=== PATIENT | male | born 1965 | race Caucasian/White ===

== ENCOUNTER 2018-10-09 08:13 | Day surgery (SDC) | payer SELFPAY ==
--- NOTE | 2018-10-09 06:47 | ENDO_ITS ---
Date of service: 10/09/18 Time of Service: 08:55 Endoscopy Report DATE OF PROCEDURE: 10/09/18 PRE-OP DIAGNOSIS: Bloating and early satiety POST-OP DIAGNOSIS: other (Duodenitis, gastritis, esophagitis, hiatal hernia, Mix's) PROCEDURE: EGD with biopsies SURGEON: Heather Carreno ANESTHESIA: MAC (Gregorio Blakely, GLOBE CHANGER/ ASA 2) ESTIMATED BLOOD LOSS: 3 PATHOLOGY: other (duodenal bx, gastric bx, esophageal bx, hiatal hernia) COMPLICATIONS: None DISPOSITION: same day INDICATIONS: Mr. Mahmood is a pleasant 53 year old male who was seen in the office for bloating and early satiety. Risks, benefits and complications have been reviewed. Complications include but are not limited to bleeding, pain, perforation, sore throat, aspiration, and adverse reaction to the medications. Questions were entertained and answered to their satisfaction and they wished to proceed. No guarantees were given or implied. FINDINGS: Inflammation of the small bowel, stomach, esophagus, shallow gastric ulcers and a small hiatal hernia PROCEDURE DESCRIPTION: After informed consent was obtained the patient was take to the procedure room and placed in a supine position. Monitors were applied and a time out was done. The patients name, date of , procedure type, allergies to medications and metal in their body was reviewed. A bite block was placed and the patient was sedated. Once sedated and comfortable the gastroscope was advanced through the oropharynx which was grossly normal into the esophagus. The proximal and mid-esophagus were normal. In the distal esophagus there was inflammation and a very irregular Z-line noted. The scope was advanced into the stomach and through the pylorus into the 3rd portion of the duodenum. The duodenum was noted have mild inflammation in the 1st portion of the duodenum. Biopsies were done. The scope was retracted back into the stomach and biopsies were done to rule out H. pylori. There were 2 shallow ulcers noted. The scope was retro-flexed. The cardia and fundus were noted to be normal. There was a 5 cm hiatal hernia noted. The scope was retracted back into the esophagus and biopsies were done of the GE junction to rule out Mix's. The Z line was irregular. The GE junction was at 30 cm. The scope was removed and the patient was woken up and taken back to [facility] in stable c ondition. Follow up: 2-3 weeks in the office.
--- NOTE | 2018-10-09 06:49 | W.PM.DSUDISC ---
Discharge Plan Disposition Patient Disposition: HOME Condition: Good Discharge Details Reason For Visit: bloating and early satiety Attending Provider: Heather Carreno Primary Care Provider: Gregorio Akbar Home Meds and New Rx's Prescriptions: New sucralfate [Carafate] 1 gram tablet 1 gm PO QID Qty: 56 RF: 0 esomeprazole magnesium [Nexium] 40 mg capsule,delayed release(DR/EC) 40 mg PO QAM Qty: 60 RF: 0 ranitidine HCl 300 mg capsule 300 mg PO QHS Qty: 30 RF: 0 Discontinued esomeprazole magnesium [Nexium] 20 mg capsule,delayed release(DR/EC) 20 mg PO DAILY RF: 0 Discharge Instructions Instructions: Upper Endoscopy (DC), Diet for Stomach Ulcers and Gastritis (GEN), Duodenitis (DC), Gastritis (DC), Esophagitis (DC), Hiatal Hernia (DC) Additional Instructions: Findings: Inflammation of the small bowel, stomach, and esophagus small hiatal hernia Follow up: 3-4 weeks in the office Other: Please avoid alcohol and marijuana due to the inflammation Avoid any ibuprofen, aspirin, aleve, etc for pain Tylenol is OK Please call if you develop: fevers >101.5 Nausea or Vomiting Abdominal pain that is not transient DAY SURGERY UNIT POST COLONOSCOPY INSTRUCTIONS 1. Because there will be medication in your system for the next 24 hours, you may feel a little sleepy. Your coordination will be affected. Therefore: a. Do not drive or operate dangerous equipment for 24 hours. b. Do not drink alcohol beverages for 24 hours (not even beer). c. Plan to go home and rest for the day. 2. Generally there are no restrictions on your activity after a day or so has gone by, but you may feel a bit fatigued for a few days. 3 After you arrive home you may have a light meal and return to a normal diet as you can tolerate it without feeling sick to your stomach. 4. After surgery, you may feel pain or discomfort. This should be only transient, but if it persists please contact your doctor. 5. If there are any questions regarding the findings of your procedure, please feel free to contact your doctor. 6. If you are unable to contact your doctor with a problem, contact the hospital at [phone]. 7. Continue all your regular medications unless directed otherwise. I understand the above instructions and have no questions. Signature of Patient or Responsible Adult Escort Date/Time Name of Responsible Adult Escort Signature of Nurse Date/Time Referrals: Heather Carreno MD [ [facility] STAFF PHYSICIAN] - 11/06/18 1:15 pm Activity:: Activity as Tolerated Diet:: low acid Discharge Orders Discharge Orders: Discharge Order (Routine); Ordered 10/09/18 Ordered By: Heather Carreno DS: Diagnosis Discharge Diagnosis (1) H/O esophagogastroduodenoscopy: Status: Chronic (2) Gastritis and duodenitis: Status: Acute (3) Hiatal hernia: Status: Chronic (4) GERD (gastroesophageal reflux disease): Status: Chronic
[2018-10-09 08:30] VITALS: BP 135/93; PULSE 73; RESP 16; TEMP 36; O2SAT 98
[2018-10-09] MEDS: Lactated Ringers 1,000 ML 80 ML IV (08:38)
--- NOTE | 2018-10-09 08:58 | STOM_PTH ---
PATIENT: José Mahmood LOC: [facility] U#:[id number] AGE/SX: 53/M ROOM: RE10/09/[address]: Heather Carreno MD : [id number] BED: DIS: 10/09/2018 SPEC #: [id number] RECD: 10/09/18 13:01 STATUS: [facility] #: [id number] MIRTHA: 10/09/18 08:[address]: Heather Carreno DEPT: Surgical Specimen RECD BY: Jessica Crews ENTERED: 10/09/18 13:02 SP TYPE: STOMACH OTHR DR: Gregorio Akbar Tissues: 1 - BIOPSY BOWEL 2 - STOMACH BIOPSY 3 - ESOPHAGUS BIOPSY Procedures: GROSS AND MICRO LEVEL 4 Comments: [id number]
[2018-10-09 09:38] VITALS: PULSE 69; O2SAT 99
[2018-10-09 09:43] VITALS: BP 125/83; PULSE 68; RESP 16; TEMP 36.2; O2SAT 98
== END 2018-10-09 10:20 | disposition home or self-care (01) ==
PROVIDERS: PCP Family Medicine; Visit Provider Surgery
PROC: 0DJ68ZZ Inspection of Stomach, Via Natural or Artificial Opening Endoscopic (ICD-10-PCS; CPT 43235; principal; 2018-10-09 08:45)
DX: R14.0 Abdominal distension (gaseous) (principal); R68.81 Early satiety; K29.80 Duodenitis without bleeding; K29.60 Other gastritis without bleeding; K31.89 Other diseases of stomach and duodenum; K21.0 Gastro-esophageal reflux disease with esophagitis; K22.70 Barrett's esophagus without dysplasia
CPT/HCPCS: 43239; 88305

== ENCOUNTER 2018-11-29 09:29 | Outpatient (CLI) | payer SELFPAY ==
--- NOTE | 2018-11-29 09:23 | DI.RAD_ITS ---
SYMPTOM/DIAGNOSIS: PAIN, GIVING WAY RIGHT KNEE: No bony or joint abnormality is seen.
== END 2018-11-29 09:49 ==
PROVIDERS: PCP Family Medicine; Visit Provider Orthopaedic Surgery
DX: M25.561 Pain in right knee (principal); M25.361 Other instability, right knee
CPT/HCPCS: 73560

== ENCOUNTER 2018-12-28 09:36 | Emergency (ER) | payer SELFPAY ==
[2018-12-28 09:40] VITALS: BP 135/93; PULSE 79; RESP 20; TEMP 36.8; O2SAT 97
--- NOTE | 2018-12-28 09:43 | W.ED.GENAD ---
Discharge Plan Disposition Patient Disposition: HOME Condition: Stable Discharge Details Chief Complaint: EyeProblem Clinical Impression: Foreign body of cornea, right Primary Care Provider: Gregorio Akbar ED Provider: Jin Corona Home Meds and New Rx's Prescriptions: Continued esomeprazole magnesium [Nexium] 40 mg capsule,delayed release(DR/EC) 40 mg PO DAILY Qty: 30 RF: 5 Discharge Instructions Instructions: Eye Foreign Body (ED) Additional Instructions: Please go straight to [facility] for continued treatment of the foreign body in your right eye. Referrals: [facility] [Outside] (Presents straight to their office for further care) Discharge Data Discharge Date/Time-TO BE ENTERED AT DEPARTURE: 12/28/18 10:50 Medical Decision Making Patient presents the emergency department for chief complaint of right eye pain. Patient states couple days ago he felt that he may have got something in his eye. This morning when he woke up he noted significant crusting to his eyelid and discomfort. Patient does state he may have also got a piece of metal or rust in his left eye but feels that he was able to appropriately flush that out that has been improving. Physical exam shows a corneal foreign body that appears metallic with rust ring present to the right cornea and approximately the 3 o'clock position. Otherwise dye and slit-lamp along with Barajas lamp was utilized and no other deformity or corneal abrasion was noted. Attempted to remove foreign body with moistened Q-tip but was unable to remove this. Patient even with analgesia seemed very sensitive so given rust ring that I feel will need treatment by specialist I decided not to use a needle to attempt to dislodge foreign body. spoke with Dr. Hurtado at [facility] whom stated that patient could present immediately to their office for further care of his condition. Patient was in agreement with this plan of care. HPI General Mode of arrival: ambulatory. Date/Time Provider Initiated Documentation: 12/28/18 09:41. Limitations to Documentation: no limitations. Information obtained by: patient. History of Present Illness 53 year old M presents to the emergency department with the chief complaint of Foreign body right eye, described as moderate and similar to prior episodes, with intensity rated at 8. Quality is described as aching and sharp, and is localized to the eyes and right. Patient started experiencing this day(s) (2) and it has been constant. Patient notes no other symptoms.. Related Data Home Medications Medication Instructions Recorded Confirmed esomeprazole magnesium 40 mg 40 mg PO DAILY #30 cap 11/19/18 12/28/18 capsule,delayed release Previous Rx's Medication Instructions Recorded esomeprazole magnesium 40 mg 40 mg PO DAILY #30 cap 11/19/18 capsule,delayed release Allergies Allergy/AdvReac Type Severity Reaction Status Date / Time No Known Allergies Allergy Verified 12/28/18 09:42 General Stated Complaint: EyeProblem JS: 3 Review of Systems Constitutional Denies body ache(s), Denies chills, Denies fever(s) and Denies headache(s) Eyes Reports as per HPI, Reports eye discharge, Reports irritation, Denies loss of vision and Reports eye pain ENT Denies headache(s) Cardiovascular Denies syncope Gastrointestinal Denies nausea Integumentary/Breasts Denies rash Neurologic Denies syncope, Denies headache(s), Denies loss of vision and Denies other visual disturbances PFSH Medical History GERD (gastroesophageal reflux disease) (Chronic) Hiatal hernia (Chronic) Gastritis and duodenitis (Acute) Barretts esophagus Myalgia Neck pain Wrist pain, chronic Surgical History H/O esophagogastroduodenoscopy (Chronic ~10/09/18) Colonoscopy - IV Sedation (~2010) Endoscopy (~2013) Family History Father Heart disease Mother Diabetes Social History Smoking/Tobacco Use Status: Never Alcohol Intake: current Alcohol Intake frequency: a few times a month Alcohol type: beer Drug use: Daily Substance use type: marijuana Do you feel safe at home: Yes Do you feel safe in your relationship?: Yes Exam Const General: cooperative, no acute distress and not ill appearing Orientation: alert, awake and oriented x3 Eyes Visual Carlson: normal visual carlson by confrontation Alignment and Position: alignment normal Periorbital: periorbital findings normal Eyelids: eyelids normal Conjunctivae: conjunctivae normal Sclera: sclerae normal Cornea: corneas abnormal on the right fluorescein used and foreign body (3 o'clock) metallic and with rust ring present and fluorescein used Pupils: PERRL, normal by confrontation and accommodation normal EOM: EOM intact bilaterally Resp Effort & Inspection: normal respiratory effort, able to speak in complete sentences and no respiratory distress Skin General skin exam: no rashes or lesions noted Neuro General: alert, awake and oriented x3 Course Vital Signs Temperature 36.8 C 12/28/18 09:40 Pulse 79 12/28/18 09:40 Respiratory Rate 20 12/28/18 09:40 Blood Pressure 135/93 H 12/28/18 09:40 Pulse Oximetry 97 12/28/18 09:40 Temperature 36.8 C 12/28/18 09:40 Temperature Source Temporal Artery Scan 12/28/18 09:40 Pulse 79 12/28/18 09:40 Respiratory Rate 20 12/28/18 09:40 Respiratory Effort Non-Labored 12/28/18 09:40 Blood Pressure 135/93 H 12/28/18 09:40 Pulse Oximetry 97 12/28/18 09:40 Oxygen Delivery Method Room Air 12/28/18 09:40 Oxygen Flow Rate 0 12/28/18 09:40 Pain Level 8 12/28/18 09:40
--- NOTE | 2018-12-28 09:46 | ED.GENADUL_ITS ---
Discharge Plan Disposition Patient Disposition: HOME Condition: Stable Discharge Details Chief Complaint: EyeProblem Clinical Impression: Foreign body of cornea, right Primary Care Provider: Gregorio Abkar ED Provider: Jin Corona Home Meds and New Rx's Prescriptions: Continued esomeprazole magnesium [Nexium] 40 mg capsule,delayed release(DR/EC) 40 mg PO DAILY Qty: 30 RF: 5 Discharge Instructions Instructions: Eye Foreign Body (ED) Additional Instructions: Please go straight to [facility] for continued treatment of the foreign body in your right eye. Referrals: [facility] [Outside] (Presents straight to their office for further care) Discharge Data Discharge Date/Time-TO BE ENTERED AT DEPARTURE: 12/28/18 10:50 Medical Decision Making Patient presents the emergency department for chief complaint of right eye pain. Patient states couple days ago he felt that he may have got something in his eye. This morning when he woke up he noted significant crusting to his eyelid and discomfort. Patient does state he may have also got a piece of metal or r ust in his left eye but feels that he was able to appropriately flush that out that has been improving. Physical exam shows a corneal foreign body that appears metallic with rust ring present to the right cornea and approximately the 3 o'clock position. Otherwise dye and slit-lamp along with Barajas lamp was utilized and no other deformity or corneal abrasion was noted. Attempted to remove foreign body with moistened Q-tip but was unable to remove this. Patient even with analgesia seemed very sensitive so given rust ring that I feel will need treatment by specialist I decided not to use a needle to attempt to dislodge foreign body. spoke with Dr. Hurtado at [facility] whom stated that patient could present immediately to their office for further care of his condition. Patient was in agreement with this plan of care. HPI General Mode of arrival: ambulatory . Date/Time Provider Initiated Documentation: 12/28/18 09:41 . Limitations to Documentation: no limitations . Information obtained by: patient . History of Present Illness 53 year old M presents to the emergency department with the chief complaint of Foreign body right eye, described as moderate and similar to prior episodes, with intensity rated at 8. Quality is described as aching and sharp, and is localized to the eyes and right. Patient started experiencing this day(s) (2) and it has been constant. Patient notes no other symptoms.. Related Data Home Medications Medication Instructions Recorded Confirmed esomeprazole magnesium 40 mg 40 mg PO DAILY #30 cap 11/19/18 12/28/18 capsule,delayed release Previous Rx's Medication Instructions Recorded esomeprazole magnesium 40 mg 40 mg PO DAILY #30 cap 11/19/18 capsule,delayed release Allergies Allergy/AdvReac Type Severity Reaction Status Date / Time No Known Allergies Allergy Verified 12/28/18 09:42 General Stated Complaint: EyeProblem JS: 3 Review of Systems Constitutional Denies body ache(s), Denies chills, Denies fever(s) and Denies headache(s) Eyes Reports as per HPI, Reports eye discharge, Reports irritation, Denies loss of vision and Reports eye pain ENT Denies headache(s) Cardiovascular Denies syncope Gastrointestinal Denies nausea Integumentary/Breasts Denies rash Neurologic Denies syncope, Denies headache(s), Denies loss of vision and Denies other visual disturbances PFSH Medical History GERD (gastroesophageal reflux disease) (Chronic) Hiatal hernia (Chronic) Gastritis and duodenitis (Acute) Barretts esophagus Myalgia Neck pain Wrist pain, chronic Surgical History H/O esophagogastroduodenoscopy (Chronic ~10/09/18) Colonoscopy - IV Sedation (~2010) Endoscopy (~2013) Family History Father Heart disease Mother Diabetes Social History Smoking/Tobacco Use Status: Never Alcohol Intake: current Alcohol Intake frequency: a few times a month Alcohol type: beer Drug use: Daily Substance use type: marijuana Do you feel safe at home: Yes Do you feel safe in your relationship?: Yes Exam Const General: cooperative, no acute distress and not ill appearing Orientation: alert, awake and oriented x3 Eyes Visual Carlson: normal visual carlson by confrontation Alignment and Position: alignment normal Periorbital: periorbital findings normal Eyelids: eyelids normal Conjunctivae: conjunctivae normal Sclera: sclerae normal Cornea: corneas abnormal on the right fluorescein used and foreign body (3 o'clock) metallic and with rust ring present and fluorescein used Pupils: PERRL, normal by confrontation and accommodation normal EOM: EOM intact bilaterally Resp Effort & Inspection: normal respiratory effort, able to speak in complete sentences and no respiratory distress Skin General skin exam: no rashes or lesions noted Neuro General: alert, awake and oriented x3 Course Vital Signs Temperature 36.8 C 12/28/18 09:40 Pulse 79 12/28/18 09:40 Respiratory Rate 20 12/28/18 09:40 Blood Pressure 135/93 H 12/28/18 09:40 Pulse Oximetry 97 12/28/18 09:40 Temperature 36.8 C 12/28/18 09:40 Temperature Source Temporal Artery Scan 12/28/18 09:40 Pulse 79 12/28/18 09:40 Respiratory Rate 20 12/28/18 09:40 Respiratory Effort Non-Labored 12/28/18 09:40 Blood Pressure 135/93 H 12/28/18 09:40 Pulse Oximetry 97 12/28/18 09:40 Oxygen Delivery Method Room Air 12/28/18 09:40 Oxygen Flow Rate 0 12/28/18 09:40 Pain Level 8 12/28/18 09:40
== END 2018-12-28 10:50 | disposition home or self-care (01) ==
PROVIDERS: Emergency Provider Nurse Practitioner Family; PCP Family Medicine
DX: T15.01XA Foreign body in cornea, right eye, initial encounter (principal)
CPT/HCPCS: 99283

== ENCOUNTER 2019-01-01 01:04 | Outpatient (CLI) | payer SELFPAY ==
--- NOTE | 2019-01-01 08:45 | DI.MRI_ITS ---
SYMPTOM/DIAGNOSIS: INTERNAL DERANGEMENT, PAIN, KNEE GIVES OUT RIGHT KNEE MRI: Routine noncontrast examination was performed. There are no priors for comparison. There is a tear of the anterior cruciate ligament. The posterior cruciate ligament is intact as are the medial and lateral collateral ligaments, extensor mechanism, medial and lateral retinaculum and popliteus tendon. There is abnormal signal seen in the body and posterior horn of the medial meniscus suggestive of a tear. There is a fluid collection adjacent to the medial meniscus measuring 3.1 cm. craniocaudally by 1 cm. AP suggestive of a perimeniscal cyst. There is a small amount of fluid in the joint space. The articular cartilage is well maintained. Marrow signal is within normal limits without evidence of an occult fracture or avascular necrosis. There does appear to be a tiny popliteal cyst. IMPRESSION: 1. ACL tear. 2. Tear of the body and posterior horn of the medial meniscus with an associated perimeniscal cyst.
== END 2019-01-01 01:24 ==
PROVIDERS: PCP Family Medicine; Visit Provider Orthopaedic Surgery
DX: M25.561 Pain in right knee (principal); M23.91 Unspecified internal derangement of right knee; S83.511A Sprain of anterior cruciate ligament of right knee, initial encounter; S83.241A Other tear of medial meniscus, current injury, right knee, initial encounter
CPT/HCPCS: 73721

== ENCOUNTER 2019-02-12 08:31 | Outpatient (CLI) | payer SELFPAY ==
--- NOTE | 2019-02-12 08:03 | W.PREOPHP ---
Assessment and Plan (1) Tear of medial meniscus of right knee: Current visit: Yes Status: Chronic Plan: Educated patient on surgery covering surgical technique, recovery process, benefits and risks including but not limited to risk of infection, blood clot, damage to soft tissue/blood vessels/nerves in detail. Educated patient partial medial meniscectomy is not guaranteed to improve patient's instability and he may continue to have instability due to his chronic ACL tear. Reiterated that Dr. Mack will consider ACL reconstruction if warranted based on patient's symptoms following partial medial meniscectomy. After discussion patient gives verbal understanding of risks and elects to proceed with scheduling surgery. Patient had opportunity to have questions answered to their satisfaction. They will contact office if issues arise. Patient will continue to be scheduled for right knee arthroscopy with partial medial meniscectomy with Dr. Mack. History of Present Illness Narrative: Mr. Mahmood is a 53-year-old male presents clinic with his for preoperative visit for scheduled right knee arthroscopy with partial medial meniscectomy with Dr. Mack. Patient reports approximately 3 years ago he was removing of bed from a trailer, he pushed the bed into a upright position over his head when his right knee suddenly gave way causing the right knee to flex underneath him. Patient immediately fell to the ground and had severe knee pain. Although he did not seek orthopedic medical attention until November 2018 he reports chronic knee instability that causes frequent falls. In addition to instability patient also has severe pain with giving out motions and is unable to do any twisting motions due to severe pain and instability. Patient has tried ibuprofen as needed which provides some pain relief. In addition he is also tried to use a soft knee brace without improvement. Patient did borrow his friend's ACL brace which helps to provide some stability. When patient continued to have symptoms for greater than 3 years following injury he sought orthopedic consult. Due to patient's history and physical exam Dr. Mack ordered an MRI which as per his note on 01/08/2019 states chronic tear of the ACL; PCL is intact; tear of posterior horn of medial meniscus and questionable Linn's cyst. Although patient has ACL tear Dr. Mack recommended knee arthroscopy with partial medial meniscectomy prior to considering ACL reconstruction due to patient's age. Patient was agreeable to surgical plan and wished to proceed with knee arthroscopy. Pertinent Surgical Information Denies past medical history of: Hypertension, stroke, cardiac issues, angina, asthma, COPD, sleep apnea, renal issues, liver issues, hepatitis, gastrointestinal ulcers, hyperlipidemia, bleeding disorders, seizures, migraines, anxiety, depression, diabetes, autoimmune disorders, thyroid issues Denies prior complications from surgery or anesthesia. Review of Systems Constitutional Denies fever(s) and Denies headache(s) Eyes Denies change in vision ENT Denies dizziness, Denies ear discharge, Denies headache(s), Denies epistaxis, Denies nasal discharge and Denies sore throat Cardiovascular Denies chest pain, Denies rapid heart rate, Denies irregular heart rhythm, Denies dyspnea, Denies dyspnea on exertion, Denies orthopnea, Denies paroxysmal nocturnal dyspnea and Denies slow heart rate Respiratory Reports cough (morning cough at baseline; denies any recent change in cough), Denies dyspnea, Denies dyspnea on exertion and Denies wheezing Gastrointestinal Denies abdominal pain, Denies melena, Denies hematochezia, Denies constipation, Denies diarrhea, Denies nausea and Denies vomiting Genitourinary Denies hematuria, Denies dysuria and Denies urinary urgency Musculoskeletal Reports as per HPI, Denies numbness and Denies tingling Neurologic Denies dizziness, Denies headache(s), Denies numbness and Denies tingling Psychiatric Denies anxiety and Denies depression Allergic/Immunologic Denies wheezing PFSH Medical History Tear of medial meniscus of right knee (Chronic) Wrist pain, chronic Neck pain GERD (gastroesophageal reflux disease) (Chronic) Hiatal hernia (Chronic) Gastritis and duodenitis (Acute) Mix esophagus (Chronic) Marijuana use (Chronic) Myalgia Surgical History History of left knee surgery (Acute) Colonoscopy - IV Sedation (~2010) H/O esophagogastroduodenoscopy (Chronic ~10/09/18) H/O surgical procedure (Chronic) Endoscopy (~2013) Social History Smoking/Tobacco Use Status: Former Tobacco Use Alcohol Intake: current Alcohol Intake frequency: a few times a week Alcohol type: beer Drug use: Daily Substance use type: marijuana Do you feel safe at home: Yes Do you feel safe in your relationship?: Yes Meds Home Medications Medication Instructions Recorded Confirmed Type esomeprazole magnesium 40 mg 40 mg PO DAILY #90 cap 01/28/19 02/12/19 Rx capsule,delayed release Allergies Allergy/AdvReac Type Severity Reaction Status Date / Time No Known Allergies Allergy Verified 02/12/19 08:34 Exam Const General: cooperative and no acute distress [facility] Head: normal to inspection, normocephalic and atraumatic Ears: external ears normal General nose exam: external nose normal and no nasal discharge Face and sinus: face symmetric Mouth: oral mucosae normal, lip normal, tongue normal and moist mucous membranes Teeth and gingiva: dentition normal Throat: posterior oropharynx normal Eyes General: appearance normal, both eyes and all related structures Pupils: PERRL EOM: EOM intact bilaterally Neck Neck: trachea midline Carotids: normal carotid upstroke Lymphatic: no lymphadenopathy noted Resp Effort & Inspection: normal respiratory effort and able to speak in complete sentences Auscultation: clear to auscultation bilaterally, no rales, no rhonchi and no wheezes Cardio Heart Sounds: S1 normal, S2 normal, no murmurs, no rubs and no other Pulses: radial pulses present bilaterally GI Palpation: soft, no hepatosplenomegaly and nontender Auscultation: normal bowel sounds Skin General skin exam: no rashes or lesions noted
== END 2019-02-12 08:51 ==
PROVIDERS: PCP Family Medicine; Visit Provider Orthopaedic Surgery
DX: S83.241A Other tear of medial meniscus, current injury, right knee, initial encounter (principal); Z01.818 Encounter for other preprocedural examination
CPT/HCPCS: NC

== ENCOUNTER 2019-02-18 06:01 | Day surgery (SDC) | payer SELFPAY ==
[2019-02-18] VITALS (8 sets, daily range): BP systolic 103–133; BP diastolic 65–99; PULSE 64–77; RESP 16–21; TEMP 36.3–37.1; O2SAT 94–99
[2019-02-18] MEDS: Lactated Ringers 1,000 ML 80 ML IV (06:34)
[2019-02-18] MEDS: ceFAZolin 2 GM/50 ML BAG IVPB (07:34)
--- NOTE | 2019-02-18 08:37 | PDOC.DSDIS_ITS ---
Discharge Plan Disposition Patient Disposition: HOME Condition: Good Discharge Details Reason For Visit: Arthroscopy R knee Attending Provider: Macho Mack Primary Care Provider: Gregorio Akbar Home Meds and New Rx's Prescriptions: New ibuprofen 800 mg tablet 800 mg PO TID Qty: 30 RF: 0 hydrocodone-acetaminophen 5-325 mg tablet 1 tab PO Q6H PRN (Reason: pain) Qty: 10 RF: 0 Continued esomeprazole magnesium [Nexium] 40 mg capsule,delayed release(DR/EC) 40 mg PO DAILY Qty: 90 RF: 3 acetaminophen 500 mg Tablet 1,000 mg PO Q6H PRNRF: 0 multivitamin Tablet,Chewable 1 tab PO DAILY RF: 0 Discharge Instructions Additional Instructions: Elevate R leg on 1-2 pillows as much as possible over next 48 hours. Apply cryocuff continuously over nite tonite. Tomorrow, start to use 4 times/day for 1 hour each time to decrease swelling and pain. Crutches to walk. Put as much weight on R leg as your discomfort allows. Discontinue crutches when you can step fully on R leg with minimal pain. May remove dressings, shower, and get incisions wet after 48 hours. Leave incisions uncovered when they are dry and sealed. Take ibuprofen as prescribed, 3 times/day for 10 days to decrease swelling and inflammation. Take hydrocodone, if needed, for breakthru pain. Outpatient physical therapy on Mon or to begin rehab R knee following arthroscopic partial medial meniscectomy. Follow up with in 2 weeks. Referrals: Macho Mack MD [ [facility] STAFF PHYSICIAN] - (f/u in 2 weeks.) Equipment/Supplies: Partial Weight Bearing Crutches Activity:: Activity as Tolerated Remove Dressings/Wound Care:: 48 hours Shower/Bathe:: 48 hours Diet:: As Tolerated Discharge Orders Discharge Orders: Discharge Order (Routine); Ordered 02/18/19 Ordered By: Macho Mack DS: Diagnosis Discharge Diagnosis (1) Tear of medial meniscus of right knee: Status: Chronic
[2019-02-18] MEDS: diphenhydrAMINE 50 MG/ML VIAL 25 MG IVP (09:40)
[2019-02-18] MEDS: HYDROcodone 5/Acetaminophen 325 TAB PO (10:56)
--- NOTE | 2019-02-18 14:36 | ROE_ITS ---
DATE OF PROCEDURE: February 18, 2019 PREOPERATIVE DIAGNOSIS: Torn right ACL, torn right medial meniscus. POSTOPERATIVE DIAGNOSIS: Same. PROCEDURE: Arthroscopy of the right knee with partial right medial meniscectomy. ANESTHESIA: General. SURGEON: Macho Mack M.D. INDICATIONS: This is a 53-year-old white male who injured his right knee removing a bed from a trail er approximately three years prior to this admission. He has been bothered by chronic knee instabili ty and frequent falls over the years. This appeared to be getting worse, until finally he sought [facility] attention in November of 2018. He was functioning using a friend's ACL brace. The symptoms occ ur mostly on uneven ground and not so much on level ground. Physical examination showed ACL laxity, consistent with an ACL tear. MRI scan confirmed a chronic tear of the ACL, but it also showed a tear of the posterior horn of the medial meniscus. Because of his age and activity level, I felt that hi s disability was probably related to his meniscus rather than his torn ACL. I recommended that he un dergo an arthroscopic medial meniscectomy and full evaluation of his knee. I think he should see wha t kind of instability he has after the meniscus has been resected. I think he should be able to get around pretty well with just an ACL brace, or nothing. If he is unable to do so, only then would I recommend an ACL reconstruction. The patient is in agreement with the treatment plan. The risks and complications of the procedure have been explained to the patient in detail preoperatively. PROCEDURE: The patient was taken to the Operating Room on 02/18/19. He was placed supine on the oper ating table and a general anesthetic was administered. The right thigh was placed in the arthroscopi c leg acevedo and the right knee was prepped and draped free in the usual sterile fashion. Arthroscop ic portals were established. The right knee was inflated with normal saline solution and routine art hroscopic examination proceeded. Intraoperative photographs were obtained to document the findings. Upon entering the medial compartment, he was found to have a large, essentially bucket handle tear of the posterior horn of the medial meniscus. The posterior attachment on the bucket handle however wa s not present, it was only attached anteriorly. I then amputated through the anterior attachment of the bucket handle tear with a biting forceps. The free meniscal fragment was then secured with grasp ing forceps and removed from the knee. The remaining rim of medial meniscus was then smoothed, conto ured and debrided back to a stable rim with the 90-degree ArthroCare electrocautery device. The liza ining rim of the medial meniscus was probed under direct vision and was found to be fully stable. Th e articular cartilage in the medial compartment was undamaged. The intercondylar notched showed an absent anterior cruciate ligament with just one strand of ligamen t that was still attached to the femur. This small fiber probably measured only about 2 mm and it wa s vaporized with the high radio frequency electrocautery wand. The PCL appeared intact. The lateral compartment had a normal lateral meniscus, stable to probing under direct vision. The ar ticular cartilage in the lateral compartment was pristine and undamaged. The suprapatellar pouch was clear. The patellofemoral joint was normal with no damage to the articul ar cartilage in the patellofemoral joint. The patella appeared to be tracking well. Medial and late ral gutters were clear. The knee was copiously irrigated with saline solution using the arthroscopy pump until the outflow wa s clear. 20 cc's of 0.5% Marcaine with an epinephrine solution along with 4 mg of morphine were inst illed into the right knee and then all instruments were removed from the knee. The arthroscopy leslie ls were infiltrated with 0.5% Marcaine with an epinephrine solution and were approximated with interr upted #4-0 Nylon sutures. Sterile dressings were applied, followed by sterile gauze 4x4's, ABD pads and wrapped with 6-inch BETZAIDA bandages for a light pressure dressing. The patient's anesthesia was rev ersed without complication. Blood loss was minimal. He was discharged to recovery room in good cond ition. The patient was later discharged home from the Day Surgery Unit when fully recovered from his general anesthesia. He was given instructions to elevate his right leg on 1 to 2 pillows as much as possibl e for the next 48 hours. He is to apply a Cryo-Cuff continuously overnight tonight. Tomorrow he'll use the Cryo-Cuff four times a day for an hour each time. He is to use crutches to walk, weightbeari ng as tolerated to the right leg. He may discontinue the crutches as soon as he can step fully on hi s right leg with minimal pain. He is to keep his dressings dry and intact for 48 hours. After 48 ho urs he can remove his dressings, shower and get his incisions wet. He can leave the incisions uncove red when they are dry and sealed. He is given a prescription for ibuprofen 800 mg p.o. t.i.d. for te n days for inflammation and pain. He will take Hydrocodone with APAP 5/325, one tablet every six pili rs, if needed, for breakthrough pain. He should start physical therapy to rehab his right knee on or . He should follow-up with me in two weeks.
== END 2019-02-18 11:50 | disposition home or self-care (01) ==
PROVIDERS: PCP Family Medicine; Visit Provider Orthopaedic Surgery
PROC: (CPT 29870; principal; 2019-02-18 07:30)
DX: M23.221 Derangement of posterior horn of medial meniscus due to old tear or injury, right knee (principal); M23.8X1 Other internal derangements of right knee; M23.51 Chronic instability of knee, right knee; R29.6 Repeated falls
CPT/HCPCS: 29881; E0114; J0690; J1100; J1885; J2405

== ENCOUNTER 2022-11-09 06:53 | Day surgery (SDC) | payer OTHER, SELFPAY ==
[2022-11-09 07:00] VITALS: BP 133/101; PULSE 67; RESP 18; TEMP 36.4; O2SAT 96
[2022-11-09] MEDS: Lactated Ringers 1,000 ML 80 ML IV (07:23)
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
[2022-11-09 07:34] VITALS: BMI 30.7
--- NOTE | 2022-11-09 08:49 | STOM_PTH ---
PATIENT: José Mahmood LOC: [facility] U#:[id number] AGE/SX: 57/M ROOM: RE11/09/[address]: Ponce Roque : 1965 BED: DIS: 11/09/2022 SPEC #: [id number] RECD: 11/09/22 12:51 STATUS: ALLISON RE #: [id number] MIRTHA: 11/09/22 08:[address]: Ponce Roque DEPT: Surgical Specimen RECD BY: Jessica Crews ENTERED: 11/09/22 12:54 SP TYPE: STOMACH OTHR DR: Jerardo Hicks Tissues: 1 - STOMACH BIOPSY 2 - ESOPHAGUS BIOPSY 3 - ESOPHAGUS BIOPSY 4 - BIOPSY BOWEL 5 - BIOPSY BOWEL Procedures: GROSS AND MICRO LEVEL 4 Comments: [id number]
[2022-11-09 09:22] VITALS: BP 152/118; PULSE 69; RESP 16; TEMP 36; O2SAT 96
--- NOTE | 2022-11-09 09:47 | W.ANESPOSTOP ---
Postoperative Evaluation Date, Time and Location Date Performed: 11/09/22 Time Performed: 11:20 Patient Location: Day Surgery Unit Vital Signs Most Recent Imported Vital Signs: Most Recent Vital Signs Temp Pulse Resp BP Pulse Ox 36 C L 69 16 152/118 H 96 11/09/22 09:22 11/09/22 09:22 11/09/22 09:22 11/09/22 09:22 11/09/22 09:22 Pain Score Most Recent Pain Score: Most Recent Pain Score Pain Level 7 11/09/22 09:22 Assessment Mental Status: Awake (Alert & Oriented to Patient Baseline) Airway and Respiratory Function: Patent airway with normal (patient baseline) respiratory exam Cardiovascular Function: Hemodynamically Stable Hydration Status: Adequately Hydrated Nausea & Vomiting: Active Nausea or Vomiting Present (zofran ordered) Nausea and Vomiting Management: Nausea and vomiting active, being addressed with medication Pain: Pt. Denies Any Pain Peripheral Nerve Block: Patient did not receive a nerve block Postoperative Comments:: still retching but passing gas.has had various anti emetics dr. montenegro aware and has seen him .will report to [facility] who will check on him.
[2022-11-09] MEDS: Ondansetron 4 MG/2 ML VIAL IVP (09:52)
[2022-11-09 09:54] VITALS: BP 158/107; PULSE 66; RESP 18; TEMP 36.5; O2SAT 99
--- NOTE | 2022-11-09 10:14 | COLE_ITS ---
Date of service: 11/09/22 Time of Service: 09:00 Colonoscopy Report Procedure Description: Procedures performed: 1. Colonoscopy with snare polypectomy x2 2. Colonoscopic ablation/fulguration/destruction of colon polyp Preoperative diagnosis: Surveillance colonoscopy, rectal bleeding Postoperative diagnosis: Colon polyps, grade 2 internal hemorrhoids Surgeon: Ron Roque Anesthesia: Cordell Indication for procedure: Patient is a 57-year-old man who has been having on /off rectal bleeding for the last few years. He does have a history of bulging hemorrhoids. Patient reports no significant findings on prior colonoscopies. He does not have a family history of colon cancer. Findings: A 3 to 5 mm sessile polyp was removed from the transverse colon with hot snare technique. Another 2-3 mm sessile polyp was fulgurated/ablated with the tip of the hot snare in the transverse colon. No significant diverticular disease was seen. In the proximal rectum a 10-12 mm sessile polyp was seen and removed with hot snare technique. Retroflexion demonstrated significant grade 2 internal hemorrhoids. Surveillance/follow-up recommendations: Repeat colonoscopy in 3 years considering size/appearance of the polyps. Complications: None Blood loss: Minimal Specimens:?? YES Quality of Prep:?? Good Procedure in detail: Written consent was obtained from the patient who was in agreement with the risks, benefits and indications of the procedure.? He was turned from upper endoscopy (see separate procedure note) and kept in the same position and anesthesia was continued. I started the colonoscopy portion of the exam. Digital rectal exam and visual examination was performed. Normal tone and no obvious pathologic processes uncovered. A well?lubricated colonoscope was advanced without difficulty all the way to the cecum identified by the ileocecal valve, and triangular folds and appendiceal orifice.? It was then slowly withdrawn.?? Retroflexion was performed in the rectum.? The findings/interventions are noted above. The scope was then removed and the patient tolerated the procedure well and was then kept in the same position and anoscopy/internal hemorrhoid banding was performed (see separate procedure note for details).
--- NOTE | 2022-11-09 10:14 | W.PM.OP ---
Date of service: 11/09/22 Time of Service: 10:15 Operative Note Operative Note Refer to Anesthesia Record Procedure Description: Procedures performed: 1.? Anoscopy 2.? Internal Hemorrhoid banding x3 Preoperative diagnosis: Symptomatic grade 2 internal hemorrhoids Postoperative diagnosis: Same Surgeon: Ron Roque Anesthesia: Landa Indication for procedure: 57-year-old man has been having some rectal bleeding. Presumable cause hemorrhoids and he wants them banded if they are found during his surveillance colonoscopy. Findings: All 3 columns double?banded Surveillance/follow-up recommendations: No follow-up needed.? The durability of hemorrhoidal interventions varies greatly and sometimes is only a few years before other hemorrhoids develop/recur. Complications: None Blood loss: Minimal Specimens:? No Procedure in detail: Written consent was obtained from the patient who was in agreement with the risks, benefits and indications of the procedure.? He was kept in the same position after the colonoscopy was done (see separate procedure note) and a well?lubricated anoscope was introduced in the anal canal carefully evaluated for other pathology such as fistulas and/or fissures.? None were seen. Grade 2 internal hemorrhoids were visualized at all 3 columns.? Rubber band ligation was performed in all 3 columns, just above the dentate line, with 2 rubber bands placed at each location.? The patient tolerated this procedure well. The scope was then removed and the PACU in stable condition and was not having perianal pain at that time.
--- NOTE | 2022-11-09 10:16 | W.PM.ENDDOP ---
Date of service: 11/09/22 Time of Service: 09:00 Endoscopy Report PROCEDURE DESCRIPTION: Procedures performed: 1.? Esophagogastroduodenoscopy with cold forceps biopsies Preoperative diagnosis: Hiatal hernia, Mix's esophagus Postoperative diagnosis: Mild antral gastritis/gastropathy, moderate?size (3-4 cm) type III paraesophageal hernia, Mix's esophagus Surgeon: Ron Roque Anesthesia: Landa Indication for procedure: Findings: - D3, D2 and D1 - normal - no inflammation or ulcers - Pylorus - patent.? No bile reflux visualized during procedure. - Antrum - looks mildly inflamed and with chronic appeance - biopsies taken to rule out occult H. pylori - Stomach Body - grossly normal appearance. - Fundus -? Normal.? No polyps. - Hiatus - Retroflexion shows moderate?size, type III paraesophageal hernia (3-4 cm slide with one side sliding up/past the esophagus - Esophagus - distal esophagus does not look actively inflamed despite hernia.? There was however two distinct ~2-3 cm strips of Mix's esophagus. These were biopsied with cold forceps technique in various locations to rule out any dysplasia. Mid and proximal esophagus normal in appearance. Cold forceps biopsies were taken in the midesophagus to assess for possible reflux as high. - Cords/hypopharynx - Normal OVERALL - Stable Mix's esophagus with no unusual visible appearance. Biopsies taken. [place] to be secondary to the type III paraesophageal hernia he has. Surveillance/follow-up recommendations: I recommend surveillance of Mix's esophagus every 3-5 years in the absence of surgical repair. Elective surgical repair can be considered and the patient should follow-up if he desires to understand more about this option. Mix's esophagus in the setting of a type III paraesophageal hernia can be treated/fixed with minimally invasive (MIS) paraesophageal hernia repair and antireflux surgery. This may be preferable for younger patients who do not want to be on chronic PPI therapy. Complications: None Blood loss: Minimal Specimens:? YES Procedure in detail: Written consent was obtained from the patient who was in agreement with the risks, benefits and indications of the procedure.? We went to the endoscopy suite and laid the patient in left lateral decubitus position.? Anesthesia was administered which was tolerated well.? A timeout was performed and when we are all in agreement we began the procedure. A well?lubricated endoscope was advanced without difficulty down the esophagus, into the stomach, through a patent pylorus and into the duodenum.? It was then slowly pulled back with findings noted above. The scope was then removed and the patient tolerated the procedure well and was then turned for the colonoscopy portion of the procedure (see separate procedure note)
[2022-11-09 10:22] VITALS: BP 145/98; PULSE 69; RESP 16; TEMP 36.4; O2SAT 93
[2022-11-09] MEDS: Droperidol 5 MG/2 ML VIAL 0.625 MG IVP (11:17)
[2022-11-09 11:19] VITALS: BP 162/115; PULSE 75; RESP 16; TEMP 36.4; O2SAT 93
== END 2022-11-09 12:56 | disposition home or self-care (01) ==
PROVIDERS: PCP Neuromusculoskeletal Medicine & OMM; Visit Provider Student in an Organized Health Care Education/Training Program
PROC: (CPT 45385; principal; 2022-11-09 08:45)
DX: K22.70 Barrett's esophagus without dysplasia (principal); K29.70 Gastritis, unspecified, without bleeding; K44.9 Diaphragmatic hernia without obstruction or gangrene; K64.1 Second degree hemorrhoids; K63.5 Polyp of colon; K62.1 Rectal polyp; K22.89 Other specified disease of esophagus
CPT/HCPCS: 45385; 45384; 46221; 43239; 88305; J1790; J2405

== ENCOUNTER 2023-06-26 11:52 | Inpatient (IN) | payer OTHER, SELFPAY ==
[2023-06-26] VITALS (21 sets, daily range): BP systolic 128–179; BP diastolic 76–119; PULSE 62–80; RESP 15–22; TEMP 35.9–37.7; O2SAT 92–100; BMI 27.3
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
[2023-06-26] MEDS: Gabapentin 300 MG CAP 600 MG PO (07:16)
[2023-06-26] MEDS: Acetaminophen 500 MG TAB 1000 MG PO ×2 (07:16→15:02)
[2023-06-26] MEDS: Celecoxib 200 MG CAP 400 MG PO (07:16)
[2023-06-26] MEDS: Lactated Ringers 1,000 ML 80 ML IV (07:30)
[2023-06-26] MEDS: Normal Saline Flush 10 ML SYR IVP ×5 (07:36→23:39)
[2023-06-26] MEDS: Heparin 5,000 UNITS/ML VIAL 5000 UNITS SC ×3 (07:37→23:39)
--- NOTE | 2023-06-26 09:16 | ANES.NERVE_ITS ---
Nerve Block Single Injection Procedure Date and Time Date Performed: 06/26/23 Procedure Start: 07:45 Location Where Procedure Performed Procedure Location: Operating Room Procedure Stop: 07:54 Reason Performed: Postoperative Analgesia Requesting Provider: Ponce Roque Timeout Performed Timeout Performed: Yes Monitoring Used ECG, Blood Pressure, SpO2, ETCO2 and See EMR for corresponding vital signs Sterility Sterility: Hand Hygiene, Surgical Cap, Surgical Mask, Sterile Gloves, Sterile Drape/Sheet and Chlorhexidine Sedation Given During Procedure Sedation Given (Indicate Dose Given): Versed IV Dose:: 2 mg and Precedex IV Dos e:: 4 mg Patient Mental Status Patient Mental Status: Sedate with meaningful communication Nerve Block 1st Nerve Block: Laterality: Bilateral Block Type: Erector Spinae (Upper) Ultrasound Image Saved?: Yes Needle / Catheter Used: 100mm SonoPlex II Local Anesthetic Bolus (Indicate Dose Given): Lidocaine used for local infiltration of skin, Injected in 3-5ml increments after negative blood aspiration, Half of Total block solution given into each side, Bupivacaine 0.25% Dose:: 40 ml and Exparel Dose:: 20 ml Additives (Indicate Dose Given): None Ultrasound: Sterile probe cover and gel used Nerve Stimulator: Not Used Paresthesia: None Procedure Tolerated: No Complications and Patient tolerated well Procedure Outcome: Successful Performed By: Antonina Nichole
--- NOTE | 2023-06-26 11:50 | W.PM.OP ---
Date of service: 06/26/23 Time of Service: 11:30 Operative Note Operative Note PROCEDURE: Laparoscopic paraesophageal hernia repair Refer to Anesthesia Record Procedure Description: Procedures: 1. Laparoscopic paraesophageal hernia repair with Phasix ST mesh. 2. 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 A 360 degree Ren fundoplication was performed over a 56 mosotho bougie. Complications: None Estimated Blood Loss: Minimal Specimens removed: None Grafts or implants: Phasix ST mesh Procedure in detail: Written consent was obtained from the patient who was in agreement the risks, the benefits and indications for the procedure. The patient was taken to the operating suite and an ultrasound-guided local anesthetic block was given.(See anesthesia notes for details) He was then laid supine on the operating table with arms outstretched. General anesthesia was administered which was tolerated very well. He was then placed in lithotomy. Next we prepped and draped the abdomen in sterile fashion. A timeout was performed. When we were all in agreement we began the procedure. Local anesthetic was injected. Just to the left of the bellybutton a small stab incision was made and a 5 mm Optiview trocar was used into the abdomen under direct visualization. Insufflation was performed which was tolerated well. Four-quadrant diagnostic laparoscopy was performed and was within normal limits. The liver was inspected and did not appear cirrhotic. 3 more trochars were placed across the abdomen under visualization. The 12 mm working port was placed in the mid clavicular line on the left side per. A Erika liver retractor was used to retract the liver anteriorly and was placed in the epigastric location through a 5 mm incision. The patient was placed in steep reverse Trendelenburg and we had good visualization of the hiatus. The hernia defect was not very large and I was able to easily reduce the minimal amount of stomach out of the chest laparoscopically. Then, in usual fashion, I found the left and the right jackie of the diaphragm and incised the peritoneum overlying them from posterior circumferentially up to the anterior portion of the esophagus. Next, I turned my attention to opening pars flaccida and took down the attachments leading up to the right jackie. This nicely opened up the hiatus and I was able to take down the hernia sac throughout the entire mediastinum. A combination of blunt dissection as well as dissection with the LigaSure was performed to mobilize the esophagus within the mediastinum taking care to dissect high into the mediastinum to facilitate excellent mobilization and get a good portion of intra-abdominal esophagus. Satisfied with circumferential dissection within the mediastinum and the mobilization of the esophagus, we verified that we had greater than 3 cm of esophagus intra-abdominal(I measured this portion is 4 cm at least). I did have the posterior/right-sided vagus nerve isolated as a separate structure in this particular case because it was away from the esophagus in situ. At this point I closed the left and right crura primarily using an Endo Stitch. Ensured that the vagus nerve was loosely in between my closure where it naturally lay unrelated to the mobilized esophagus. We had a nice closure that did not have any tension and ensuring that we were not too tight around the esophagus, I fixated the Phasix ST mesh (that I had pre-cut to size on the back table) in place with a single suture on each side of it through the left and right crura individually and I also placed a suture through the primary repair buttressing it against and reinforcing my suture line. I had cut a keyhole in the mesh which facilitated the vagus nerve though it. At this point anesthesia advanced a 56 Micronesian bougie gently down the esophagus while we watched with the laparoscope. I was able to grab the fundus of the stomach and bring it around behind the esophagus to attempt our wrap. A couple of the short gastrics were found to be tethering the fundus and these were taken down with the LigaSure. After taking them down, we had good mobilization and I was able to get the fundus completely wrapped around the esophagus and GE junction over top of the 56 Micronesian bougie and no tension was noted. I then used 2-0 silk suture and sutured ~ 2 cm length of fundus to fundus, thus completing the 360 degree wrap. I placed 2 of the stitches partial-thickness through the esophagus to prevent the wrap from moving up or down at the GE junction. Hemostasis was excellent, the wrap lay very nicely and had no tension anywhere. The bougie was removed. All the needles were removed. The 12 mm epigastric port site was closed with 0 Vicryl using a Vern Katelynn. All trochars were removed under visualization and the pneumoperitoneum was evacuated. I closed the skin with running Monocryl and placed Dermabond over top of the wounds. The sponge, instrument and sharps count was correct x3 at the end of the procedure. The patient tolerated the procedure well and was taken to the PACU in hemodynamically stable condition.
[2023-06-26] MEDS: fentaNYL 100 MCG/2 ML VIAL IVP ×2 (12:57→13:29)
--- NOTE | 2023-06-26 14:02 | W.ANESPOSTOP ---
Postoperative Evaluation Date, Time and Location Date Performed: 06/26/23 Time Performed: 14:02 Patient Location: PACU Vital Signs Most Recent Imported Vital Signs: Most Recent Vital Signs Temp Pulse Resp BP Pulse Ox 36.4 C L 71 19 148/98 H 94 06/26/23 13:45 06/26/23 13:45 06/26/23 13:45 06/26/23 13:45 06/26/23 13:45 Pain Score Most Recent Pain Score: Most Recent Pain Score Pain Level 0 06/26/23 13:15 Assessment Mental Status: Arousable with meaningful communication Airway and Respiratory Function: Patent airway with normal (patient baseline) respiratory exam Cardiovascular Function: Hemodynamically Stable Hydration Status: Adequately Hydrated Nausea & Vomiting: No Nausea or Vomiting Pain: Pain is tolerable per patient (Overnight observation) Peripheral Nerve Block: Regional nerve block not resolved at time of post operative discharge
[2023-06-26] MEDS: MORPHine 2 MG/ML SYR IVP ×4 (15:34→23:39)
--- NOTE | 2023-06-26 17:45 | NUR.NOTE ---
Pt arrived to unit at approx 1400. BP slightly elevated 160/109. Per pt, this is around baseline. VS monitored per post op protocol. Systolic elevated to 179 with 8/10 pain. IV morphine given with some relief. Attempted to give PO Tylenol however pt c/o trouble swallowing and had 1 episode of emesis immediately after administration with a sip of water. Pt was then able to tolerate dinner and denies nausea at this time. Pain comes down to 5/10 after morphine and 0/10 when the pt is lying still. High BP and pain level reported to storage battery charger. Will continue to monitor.Nursing Note:
[2023-06-26] MEDS: Lactated Ringers 1,000 ML 75 ML IV (20:15)
[2023-06-27] VITALS (16 sets, daily range): BP systolic 112–161; BP diastolic 75–96; PULSE 68–85; RESP 16–21; TEMP 36.4–38; O2SAT 93–96; BMI 29.2
--- NOTE | 2023-06-27 | DI.RAD_ITS ---
Exam(s) RF BARIUM SWALLOW EXAM: RF BARIUM SWALLOW CLINICAL HISTORY: dysphagia after fundoplication TECHNIQUE: 2D and realtime digital imaging was performed. CONTRAST MATERIAL: Oral water soluble contrast was administered. COMPARISON: CR CHEST 2 VIEWS PA,LAT from 11/27/2008 FINDINGS: CHEST X-RAY: There is poor inspiration. The heart and pulmonary vasculature are within normal limits . There is linear atelectasis in the left lung base. The right lung is clear. No pleural effusion o r pneumothorax is present. The bones are within normal limits for the patient's age. There is subcuta neous gas seen in the soft tissues of the neck consistent with the patient's recent surgery. ESOPHAGRAM: Limited barium swallow was performed with water-soluble contrast. No extravasation of co ntrast was seen into the mediastinum. The contrast collected in the distal esophagus during the exam ination. There was a thin opening at the gastroesophageal junction of 2-3 mm. Oral contrast remaine d in the distal esophagus throughout the examination over the course of 15 minutes. IMPRESSION: 1. Status post fundoplication with a very narrow opening into the stomach of 2-3 mm. The majority of the contract fail to pass into the stomach during the examination. 2. Findings were discussed with Dr. Roque on 06/27/2023. RADIATION DOSE DELIVERED: nelda Silva=39.1 mGy
[2023-06-27] MEDS: MORPHine 2 MG/ML SYR IVP ×3 (03:29→22:20)
[2023-06-27] MEDS: Normal Saline Flush 10 ML SYR IVP ×2 (03:31→22:20)
[2023-06-27] MEDS: Lactated Ringers 1,000 ML 75 ML IV ×3 (08:32→17:56)
--- NOTE | 2023-06-27 09:24 | PGE_ITS ---
Date of Service Date of service: 06/27/23 Time of Service: 11:00 Assessment and Plan Assessment and plan (1) Dysphagia: Status: Acute Assessment and plan: 57-year-old man postop day 1 from laparoscopic paraesophageal hernia repair with Ren fundoplication. He is hemodynamically stable but having acute postoperative dysphagia to liquids. The wrap/fundoplication was done over a 56 Romanian bougie. Nonetheless, it cannot be denied that even when sitting directly upright, he is able to swallow water but then clearly some of it is still not passing through. 1 way or another the wrap must be too tight and I recommend returning to the operating room to loosen it up/redo it. It is really too early to blame postoperative swelling which would usually be seen postop day 2 or 3 but not immediately afterwards. I will get a barium esophagram before going back to the OR to prove this radiographically but clinically, the wrap is too tight. Overall plan: Barium swallow Return to OR for revision fundoplication and EGD assessment prior to revision and after revision to ensure adequate lumen. Subjective Subjective Interval history since last seen: Overnight there has not been any fevers or nausea or vomiting however he is having difficulty swallowing. He is able to swallow just a little bit and is able to clear his saliva. However when he takes a full drink of water, he feels like not all of it goes down and only some of it passes through. It has been like this since yesterday afternoon/evening when he first attempted to swallow. He does not have any significant pain. His worst discomfort was in his shoulders but that is now gone this morning. Exam Narrative Exam Narrative: General: Nontoxic, comfortable and interactive Neuro: Alert and oriented x3 Psych: Good mood and affect, good insight and understanding Chest: Nonlabored breathing, no wheezing Heart: Regular Abdomen: Soft, nondistended and grossly nontender. Mild incisional tenderness as expected. Objective Last Vital Signs Temp 97.5 F L 06/27/23 07:10 Pulse 83 06/27/23 07:10 Resp 18 06/27/23 07:10 BP 161/96 H 06/27/23 07:10 Pulse Ox 96 06/27/23 07:10 Time Spent with Patient Time Spent with Patient: 25-34 minutes Time was spent: preparing to see the patient(eg.review tests), ordering medications,tests, procedures, indepentently interpreting results and counseling the patient
[2023-06-27 09:46] LABS: Abs Immature Grans 0.04 10^3/uL (0.0-0.06); Absolute Monocyte Count 1.55 10^3/uL (0.1-0.8); Basophils % 0.1; Eosinophils % 0.1; HCT 41.9 % (40.0-50.0); HGB 14.7 g/dL (13.5-17.5); Immature Grans % 0.3; Lymphocytes % 5.6; MCH 30.3 pg (27.0-33.0); MCHC 35.1 % (32.0-36.0); MCV 86 fL (80-95); Monocytes % 10.9; Platelet Count 222 10^3/uL (130-400); RBC 4.85 10^6/uL (4.36-5.78); RDW 12.3 % (11.8-14.1); RDW-SD 39.2 fL; WBC 14.24 10^3/uL (4.4-10.8)
[2023-06-27 09:49] LABS: Absolute Basophil Count 0.01 10^3/uL (0.0-0.2); Absolute Eosinophil Count 0.01 10^3/uL (0.0-0.7); Absolute Neutrophil Count 11.82 10^3/uL (1.2-6.7)
[2023-06-27 10:08] LABS: Diff Comment Agrees w/ Instrument; RBC Morphology Normal
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
[2023-06-27] MEDS: Omnipaque 350 MG/ML 100 ML BTL IJ (13:41)
[2023-06-27] MEDS: Bupivacaine 0.25% Pres-Free 30 ML VIAL (15:01)
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
--- NOTE | 2023-06-27 16:22 | W.PM.OP ---
Date of service: 06/27/23 Time of Service: 16:25 Operative Note Operative Note PROCEDURE: Laparoscopic paraesophageal hernia repair Refer to Anesthesia Record Implants: Laparoscopic paraesophageal hernia repair Procedure Description: Procedures: 1. EGD 2. Diagnostic laparoscopy 3. Laparoscopic revision/redo Ren fundoplication Preoperative Diagnosis: Acute postop dysphagia Postoperative Diagnosis: Same Surgeon: Ron Roque Assist: None Anesthesia: General Anesthesiologist: Tommie Indication: 57-year-old man who had a paraesophageal hernia repair yesterday with Ren fundoplication who was able to drink immediately postop but throughout the night developed acute dysphagia and this morning on rounds was unable to swallow liquids. Barium esophagram shows an extremely tight fundoplication. Findings: EGD was able to easily pass through the wrap. There was no unusual twisting or kinking noted. The wrap was a little bit long maybe (seems to measure about 3 cm on EGD). Using laparoscopy the wrap was closely assessed from the outside and similarly, did not appear to be too tight, but was not unusually twisted or kinked. It was perhaps a little long. I elected to redo it completely. I took a few more centimeters of the short gastrics to make the fundus even more loose and floppy. I released the 3 stitches and undid the fundoplication. I re?verified the shoeshine maneuver posterior to the esophagus and GE junction. I rechecked the hiatus and had a good space between the esophagus and the crural closure. A 360 degree Ren fundoplication was then resutured over top of a 56 Vincentian bougie. I took care to ensure that it was both looser and shorter than the first fundoplication. And then anywhere. EGD was again repeated and there was subjectively notable more luminal diameter and seemingly shorter (2 cm) length. Complications: None Estimated Blood Loss: Minimal Specimens removed: None Grafts or implants: There were no new implants Procedure in detail: Written consent was obtained from the patient who was in agreement the risks, the benefits and indications for the procedure. The patient was taken to the operating suite. He was then laid supine on the operating table with arms outstretched. General anesthesia was administered which was tolerated very well. I performed an EGD with the above?noted findings. Next the patient was placed in lithotomy. Next we prepped and draped the abdomen in sterile fashion. A timeout was performed. When we were all in agreement we began the procedure. Local anesthetic was injected, targeted, at each prior trocar site. I used my previous surgical incisions. A 5 mm Optiview trocar was used into the abdomen under direct visualization. Insufflation was performed which was tolerated well. Four-quadrant diagnostic laparoscopy was performed and was within normal limits. 2 more trochars were placed across the abdomen under visualization. The 12 mm working port was placed in the mid clavicular line on the left side. A Erika liver retractor was again used to retract the liver anteriorly and was placed in the epigastric location through the existing 5 mm incision. The patient was placed in steep reverse Trendelenburg and we had good visualization of the hiatus. Using the laparoscope I carefully analyzed and inspected the fundoplication. It was not twisted or kinked nor was it visibly swollen or unusual in any obvious way. It was perhaps longer than I had initially thought which I hypothesized could be part of the problem. It was not ischemic nor did it have obvious venous congestion to suggest it was too tight. Another thing I noticed was that the wrap itself did not seem too tight, there did seem to be some mild amount of tension laterally where the short gastrics and gastrosplenic attachments were perhaps still slightly tethered and creating a pull?affect on the new fundoplication. Using a LigaSure I divided a couple centimeters of these which seem to release more fundus making the whole upper portion of the stomach much more loose and floppy. I elected to re-stitch the wrap and make it shorter and a little bit looser. I divided my previous stitches and remove them from the abdomen. I ensured the shoeshine maneuver once again. I also ensured that there is a good space between the esophagus and my crural closure posteriorly. I was satisfied with both of these components and also the placement of my mesh. At this point anesthesia advanced a 56 Vincentian bougie gently down the esophagus while we watched with the laparoscope. Over top of the bougie, I then used 2-0 silk suture and re? fashioned the fundoplication. I sutured ~ 2 cm length of fundus to fundus, thus completing the 360 degree wrap. I ensured that it was shorter than the previous one subjectively by its appearance and also ensure that I sutured it looser than previously done. I placed only 1 of the stitches partial-thickness through the esophagus to prevent the wrap from moving up or down at the GE junction. Hemostasis was excellent, the wrap lay very nicely and I again verified that it had no tension anywhere. The bougie was removed. All the needles were removed. The 12 mm epigastric port site was closed with 0 Vicryl using a Vern Katelynn. All trochars were removed under visualization and the pneumoperitoneum was evacuated. I closed the skin with interrupted Prolene and placed sterile dressings over top of the wounds. I repeated the EGD and subjectively that the GE junction/fundoplication was looser with larger luminal diameter and easier to pass through and also objectively confirm that it was shorter than the previous one(~2cm). The sponge, instrument and sharps count was correct x3 at the end of the procedure. The patient tolerated the procedure well and was taken to the PACU in hemodynamically stable condition.
--- NOTE | 2023-06-27 16:43 | W.ANESPOSTOP ---
Postoperative Evaluation Date, Time and Location Date Performed: 06/27/23 Time Performed: 16:43 Patient Location: PACU Vital Signs Most Recent Imported Vital Signs: Most Recent Vital Signs Temp Pulse Resp BP Pulse Ox 36.7 C 79 20 128/83 95 06/27/23 16:42 06/27/23 16:42 06/27/23 16:42 06/27/23 16:42 06/27/23 16:42 Most Recent Vital Signs Temp Pulse Resp BP Pulse Ox 36.4 C L 71 19 148/98 H 94 06/26/23 13:45 06/26/23 13:45 06/26/23 13:45 06/26/23 13:45 06/26/23 13:45 Pain Score Most Recent Pain Score: Most Recent Pain Score Pain Level [Neck] 9 06/27/23 00:37 Pain Level 1 06/27/23 08:56 Assessment Mental Status: Arousable with meaningful communication Airway and Respiratory Function: Patent airway with normal (patient baseline) respiratory exam Cardiovascular Function: Hemodynamically Stable Hydration Status: Adequately Hydrated Nausea & Vomiting: No Nausea or Vomiting Pain: Pain is tolerable per patient Peripheral Nerve Block: Patient did not receive a nerve block
[2023-06-27] MEDS: Heparin 5,000 UNITS/ML VIAL 5000 UNITS SC (17:56)
[2023-06-27] MEDS: Acetaminophen 500 MG TAB 1000 MG PO (19:42)
[2023-06-28 00:47] VITALS: BP 151/91; PULSE 80; RESP 18; TEMP 37.6; O2SAT 93
[2023-06-28] MEDS: Acetaminophen 500 MG TAB 1000 MG PO ×2 (02:00→07:51)
[2023-06-28] MEDS: Heparin 5,000 UNITS/ML VIAL 5000 UNITS SC ×2 (06:15→14:19)
[2023-06-28] MEDS: Lactated Ringers 1,000 ML 75 ML IV (06:20)
[2023-06-28] MEDS: MORPHine 2 MG/ML SYR IVP ×8 (06:21→22:07)
[2023-06-28] MEDS: Normal Saline Flush 10 ML SYR IVP ×9 (06:21→22:00)
[2023-06-28 07:00] LABS: Abs Immature Grans 0.05 10^3/uL (0.0-0.06); Absolute Basophil Count 0.03 10^3/uL (0.0-0.2); Absolute Eosinophil Count 0.01 10^3/uL (0.0-0.7); Absolute Monocyte Count 1.31 10^3/uL (0.1-0.8); Basophils % 0.2; Eosinophils % 0.1; HCT 37.8 % (40.0-50.0); HGB 13.2 g/dL (13.5-17.5); Immature Grans % 0.4; Lymphocytes % 7.6; MCH 30.8 pg (27.0-33.0); MCHC 34.9 % (32.0-36.0); MCV 88 fL (80-95); MPV 9.2 fL (8.0-11.0); Monocytes % 9.9; Neutrophils % 81.8; Platelet Count 192 10^3/uL (130-400); RBC 4.29 10^6/uL (4.36-5.78); RDW 12.5 % (11.8-14.1); RDW-SD 40.8 fL
[2023-06-28 07:01] VITALS: BP 154/95; PULSE 84; RESP 20; TEMP 37.5; O2SAT 93
--- NOTE | 2023-06-28 07:38 | W.PM.PROGNOT ---
Date of Service Date of service: 06/28/23 Time of Service: 07:38 Assessment and Plan Assessment and plan (1) Dysphagia: Status: Acute Assessment and plan: 57-year-old man postop day 2 from laparoscopic paraesophageal hernia repair with Ren fundoplication. POD 1 s/p laparoscopic revision/redo Ren fundoplication Improved tolerance of clear liquids Pain is well controlled. L shoulder pain, discussed increasing activity, ambulation and will trial aqua K pack Patient may shower this morning, dressings will need to be replaced after the shower Hopefully d/c home later today, if he continues to tolerate clear liquids and pureed diet. Subjective Subjective Interval history since last seen: Patient reports he is feeling better this morning. He describes tolerating drinking water. He is eager to be d/c home. He expresses his abdomen is sore but otherwise doing well. He is having some left shoulder discomfort that improves with morphine. Exam Const General: cooperative, healthy appearing and comfortable Orientation: alert and oriented x3 Resp Effort & Inspection: normal respiratory effort, no audible wheezes and no cough GI Inspection: normal to inspection and non-distended Palpation: soft, no guarding and tender Other: Incisions sites with dressings in place. Objective Last Vital Signs Temp 37.5 C 06/28/23 07:01 Pulse 84 06/28/23 07:01 Resp 20 06/28/23 07:01 BP 154/95 H 06/28/23 07:01 Pulse Ox 93 06/28/23 07:01 Laboratory Results - last 24 hr 06/27/23 06/28/23 09:37 06:55 WBC 14.24 H 13.20 H RBC 4.85 4.29 L Hgb 14.7 13.2 L Hct 41.9 37.8 L MCV 86 88 MCH 30.3 30.8 MCHC 35.1 34.9 RDW 12.3 12.5 Plt Count 222 192 MPV 9.0 9.2 Immature Gran % 0.3 0.4 Neutrophils % 83.0 81.8 Lymphocytes % 5.6 7.6 Monocytes % 10.9 9.9 Eosinophils % 0.1 0.1 Basophils % 0.1 0.2 Nucleated RBC % 0.0 0.0 Absolute Neutrophils 11.82 H 10.80 H Absolute Lymphocytes 0.80 L 1.00 L Absolute Monocytes 1.55 H 1.31 H Absolute Eosinophils 0.01 0.01 Absolute Basophils 0.01 0.03 RBC Morphology Normal Time Spent with Patient Time Spent with Patient: <25 minutes Time was spent: preparing to see the patient(eg.review tests) and counseling the patient
--- NOTE | 2023-06-28 08:38 | W.PM.PROGNOT ---
Date of Service Date of service: 06/28/23 Time of Service: 08:38 Assessment and Plan Assessment and plan (1) Dysphagia: Status: Acute Assessment and plan: 57-year-old man postop day 2 from laparoscopic paraesophageal hernia repair and Ren fundoplication, postop day 1 from revision of fundoplication for acute postoperative dysphagia. He is hemodynamically stable. His dysphagia has improved although he still having a significant sensation of slow?transit with the swallowing. He is not having any pain with swallowing he just notices that it is difficult to swallow it through. At this point, after the revision, I am confident that the wrap is not too tight and it is not too long. I do think there is a component of psychological awareness at this time because I watched him drink at the bedside and he is definitely able to drink the water down he just feels it going through the bottleneck at the fundoplication and there is aware of it. It is definitely not getting stuck there today. Overall plan for today: Ensure that he can tolerate hydration and pur?ed foods in order to be discharged home. Likely discharge later today. I will keep him on PPI for the next couple of weeks in case there is some degree of antacid rebound playing a role Worst case scenario is a revision fundoplication with Toupet fundoplication but that really should not be needed in the presence of completely normal manometry. Subjective Subjective Interval history since last seen: Overnight the patient reports that he feels significant improvement and feels quite a bit better. However, he still notices that he can feel pills and some of the liquids get hung up when he goes to swallow. Its improved and better and that its not getting stuck and staying stuck but he certainly still feels some degree of difficulty simply swallowing it all down in 1 setting. It seems to take a couple of swallows to clear everything. No fevers. No significant pain. His abdominal pain is minimal and only around the incisions. Exam Narrative Exam Narrative: General: Nontoxic, comfortable and interactive Neuro: Alert and oriented x3 Psych: Good mood and affect, good insight and understanding Chest: Nonlabored breathing Heart: Regular Objective Last Vital Signs Temp 99.5 F 06/28/23 07:01 Pulse 84 06/28/23 07:01 Resp 20 06/28/23 07:01 BP 154/95 H 06/28/23 07:01 Pulse Ox 93 06/28/23 07:01 Laboratory Results - last 24 hr 06/27/23 06/28/23 09:37 06:55 WBC 14.24 H 13.20 H RBC 4.85 4.29 L Hgb 14.7 13.2 L Hct 41.9 37.8 L MCV 86 88 MCH 30.3 30.8 MCHC 35.1 34.9 RDW 12.3 12.5 Plt Count 222 192 MPV 9.0 9.2 Immature Gran % 0.3 0.4 Neutrophils % 83.0 81.8 Lymphocytes % 5.6 7.6 Monocytes % 10.9 9.9 Eosinophils % 0.1 0.1 Basophils % 0.1 0.2 Nucleated RBC % 0.0 0.0 Absolute Neutrophils 11.82 H 10.80 H Absolute Lymphocytes 0.80 L 1.00 L Absolute Monocytes 1.55 H 1.31 H Absolute Eosinophils 0.01 0.01 Absolute Basophils 0.01 0.03 RBC Morphology Normal Time Spent with Patient Time Spent with Patient: 25-34 minutes Time was spent: indepentently interpreting results, counseling the patient and care coordination
--- NOTE | 2023-06-28 10:39 | PDOC.CMDIS ---
Date of service: 06/28/23 Time of Service: 10:39 LACE Index Scoring Tool Questions: Length of Stay (in days): 2 Was the patient admitted via the E.D.?: No E.D. Visits: 0 Answers: Total Score: 2 Risk of Readmission: Low Risk Care Management Discharge Plan Reason for Hospitalization: Paraesophageal hernia Discharge Plan: José will return home when ready per MD. He will follow up with surgical services, his PCP and plan of care as prescribed. He will transport via private vehicle. Patient/Family Education Needs: Review discharge instructions, discuss Ask Me Three.
[2023-06-28 13:12] VITALS: BP 172/111; PULSE 82; RESP 18; TEMP 37.6; O2SAT 93
[2023-06-28] MEDS: Bisacodyl 10 MG SUPP PR (13:43)
[2023-06-28 14:23] VITALS: BP 168/104; PULSE 77; RESP 20; TEMP 37.7; O2SAT 96
--- NOTE | 2023-06-28 16:02 | PDOC.CMPRO ---
Date of service: 06/28/23 Time of Service: 16:02 Care Management Progress Note Progress Note Text Progress Note Text: Cleveland was lying in bed when CM met with him. He reported some improvement with swallowing but stated it still felt like something was in there and he struggled to swallow pills and water. He expressed even struggling with saliva. MD entered room, to discuss treatment planning; anticipated discharge today, however it was decided that Cleveland would stay another night. CM continues to follow.
[2023-06-28] MEDS: Ketorolac 15 MG/ML VIAL IVP (16:22)
[2023-06-28] MEDS: ACETAMINOPHEN 1,000 MG/100 ML BTL 400 MG IVPB (16:38)
[2023-06-28] MEDS: Dexamethasone 4 MG/ML VIAL 2 MG IVP (19:59)
[2023-06-28] MEDS: Ondansetron 4 MG/2 ML VIAL IVP (21:02)
[2023-06-28 21:38] VITALS: BP 171/105; PULSE 72; RESP 18; TEMP 37.6; O2SAT 97
[2023-06-28] MEDS: LORazepam 2 MG/ML VIAL 0.5 MG IV (22:00)
[2023-06-29] VITALS (8 sets, daily range): BP systolic 136–164; BP diastolic 89–102; PULSE 70–89; RESP 16–19; TEMP 36.3–38.4; O2SAT 93–97
[2023-06-29] MEDS: Metoclopramide 10 MG/2 ML VIAL IV (00:16)
[2023-06-29] MEDS: Normal Saline Flush 10 ML SYR IVP ×5 (00:17→16:05)
[2023-06-29] MEDS: MORPHine 2 MG/ML SYR IVP ×5 (00:25→16:04)
[2023-06-29 06:50] LABS: HCT 37.2 % (40.0-50.0); HGB 12.8 g/dL (13.5-17.5); MCH 30.4 pg (27.0-33.0); MCHC 34.4 % (32.0-36.0); MCV 88 fL (80-95); MPV 9.3 fL (8.0-11.0); Platelet Count 197 10^3/uL (130-400); RBC 4.21 10^6/uL (4.36-5.78); RDW 12.3 % (11.8-14.1); RDW-SD 39.8 fL; WBC 13.94 10^3/uL (4.4-10.8)
[2023-06-29] MEDS: LORazepam 2 MG/ML VIAL 0.5 MG IVP ×2 (08:13→13:34)
[2023-06-29] MEDS: Ondansetron 4 MG/2 ML VIAL IVP (08:16)
[2023-06-29] MEDS: Dexamethasone 4 MG/ML VIAL 2 MG IVP (08:18)
[2023-06-29] MEDS: ACETAMINOPHEN 1,000 MG/100 ML BTL 400 MG IVPB (08:19)
--- NOTE | 2023-06-29 10:39 | W.PM.PROGNOT ---
Date of Service Date of service: 06/29/23 Time of Service: 10:39 Assessment and Plan Assessment and plan (1) Dysphagia: Status: Acute Assessment and plan: He certainly seems to be improved today compared to yesterday. He did have an isolated fever this morning, but his hemodynamics were otherwise normal, and he has no other symptoms of active infection. I suppose this could be secondary to the new addition of steroids. We will follow-up with a swallow study today to assess transit of the barium across the lower esophagus. Subjective Subjective Interval history since last seen: He had a little more dysphagia overnight, but his symptoms improved around 10 PM, and he was able to sleep through the night without any difficulty. He feels much better this morning. He is tolerating some sips of liquid without much discomfort. Exam GI Other: His abdomen is soft and nondistended. The incisions all look clean without any signs of infection. Objective Last Vital Signs Temp 99.5 F 06/29/23 10:15 Pulse 84 06/29/23 09:26 Resp 16 06/29/23 09:26 BP 144/91 H 06/29/23 09:26 Pulse Ox 97 06/29/23 09:26 Laboratory Results - last 24 hr 06/29/23 06:15 WBC 13.94 H RBC 4.21 L Hgb 12.8 L Hct 37.2 L MCV 88 MCH 30.4 MCHC 34.4 RDW 12.3 Plt Count 197 MPV 9.3 Time Spent with Patient Time Spent with Patient: 25-34 minutes Time was spent: preparing to see the patient(eg.review tests), indepentently interpreting results and counseling the patient
--- NOTE | 2023-06-29 13:30 | DI.RAD_ITS ---
Exam(s) RF BARIUM SWALLOW EXAM: RF BARIUM SWALLOW CLINICAL HISTORY: dysphagia TECHNIQUE: 2D and realtime digital imaging was performed. CONTRAST MATERIAL: Oral barium and oral water soluble contrast was administered. COMPARISON: No exams were available for comparison FINDINGS: ESOPHAGRAM: The esophagus is patent with no evidence for erosions, fold thickening, strictures, or ma sses. With regards to the motility, there is a normal primary stripping wave. Contrast passed easily into the stomach. No contrast retention is seen in the distal esophagus. There is no hiatal hernia. There is a small amount of gastroesophageal reflux during the examination. IMPRESSION: No evidence of contrast retention in the distal esophagus. Contrast passed easily into the stomach. RADIATION DOSE DELIVERED: Shirar=7.26 mGy
[2023-06-29] MEDS: Omnipaque 350 MG/ML 50 ML BTL 250 ML PO (13:49)
[2023-06-29] MEDS: Barium Sulfate 60% W/V 355 ML BTL PO (13:52)
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
--- NOTE | 2023-06-29 14:16 | PDOC.CMDIS ---
Date of service: 06/29/23 Time of Service: 14:16 LACE Index Scoring Tool Questions: Length of Stay (in days): 3 Was the patient admitted via the E.D.?: No E.D. Visits: 0 Answers: Total Score: 3 Risk of Readmission: Low Risk Care Management Discharge Plan Reason for Hospitalization: Paraesophageal hernia Discharge Plan: José is discharged home with no services. He will follow up with his PCP, [facility] and plan of care as instructed. He is transported home by family via private vehicle. Patient/Family Education Needs: Review of discharge instructions including medications, limitations and follow up plan of care; discuss Ask Me Three and self management.
--- NOTE | 2023-06-29 15:45 | CHAPLAIN ---
I had a brief visit with [place] this afternoon, explained my role and offered support. I'll continue to check in.
== END 2023-06-29 16:41 | disposition home or self-care (01) | DRG 392 ==
LOC: MS 06-27 03:06
PROVIDERS: Surgery; Admitting Provider Student in an Organized Health Care Education/Training Program; PCP Neuromusculoskeletal Medicine & OMM; Visit Provider Student in an Organized Health Care Education/Training Program
PROC: 0WQF4ZZ Repair Abdominal Wall, Percutaneous Endoscopic Approach (ICD-10-PCS; CPT 43280; principal; 2023-06-26 07:30)
PROC: (CPT 49320; principal; 2023-06-27 13:30)
PROC: 0DJ68ZZ Inspection of Stomach, Via Natural or Artificial Opening Endoscopic (ICD-10-PCS; CPT 43235; 2023-06-27 13:30)
DX: K44.9 Diaphragmatic hernia without obstruction or gangrene (principal); K91.89 Other postprocedural complications and disorders of digestive system; R13.19 Other dysphagia; K22.70 Barrett's esophagus without dysplasia; R06.02 Shortness of breath; Z79.899 Other long term (current) drug therapy; Z86.010 Personal history of colon polyps; F10.90 Alcohol use, unspecified, uncomplicated; K21.9 Gastro-esophageal reflux disease without esophagitis; F12.90 Cannabis use, unspecified, uncomplicated; K29.70 Gastritis, unspecified, without bleeding; K29.80 Duodenitis without bleeding; F17.290 Nicotine dependence, other tobacco product, uncomplicated; R50.9 Fever, unspecified
CPT/HCPCS: 43280 ×2; 00123; 36415; 76942; 85027; 74221; 85025; C1781; G0378; J0131; J1100; J1644; J1885; J2001; J2060; J2250; J2270; J2371; J2405; J2704; J2765; J3010; J3475; J3490; Q9967

== ENCOUNTER 2023-07-03 06:16 | Emergency (ER) | payer OTHER, SELFPAY ==
[2023-07-03] VITALS (55 sets, daily range): BP systolic 71–137; BP diastolic 39–100; PULSE 101–152; RESP 12–56; TEMP 37.6; O2SAT 89–100
--- NOTE | 2023-07-03 06:15 | RT.EKG_ITS ---
APPROVED REPORT Exam: Resting ECG Reason for Exam: short of breath Patient Location: E HR:146 bpm ECG Measurements Heart Rate 146 AXIS FL 125 P 36 QRSd 100 QRS 50 QT 287 T -37 QTc 447 Conclusion Sinu tahcycardia with ventricular response of 146 bpm, rate related repolarization abnormalities with out pattern injury ischemia uniquely identified on this tracing
--- NOTE | 2023-07-03 06:30 | DI.RAD_ITS ---
Exam(s) XR PORTABLE CHEST AP POST LINE EXAM: XR PORTABLE CHEST AP POST LINE CLINICAL HISTORY: s/p intubation TECHNIQUE: 2D digital imaging was performed of the chest. One image was obtained. An AP view was ob tained. COMPARISON: No exams were available for comparison FINDINGS: There is poor inspiration MEDIASTINUM: Normal. HEART: Normal. PULMONARY VASCULATURE: Normal. LUNGS: Bilateral basilar atelectasis. PLEURAL SPACE: There is blunting of the costophrenic angle suggesting small bilateral pleural effusio ns. No definite pneumothorax is identified. BONE:Within normal limits for the patient's age. OTHER FINDINGS:There is an endotracheal tube in place with its tip 2.2 cm above the la. IMPRESSION: 1. The tip of the endotracheal tube is 2.2 cm above the la. 2. Bilateral basilar atelectasis and suspected small bilateral pleural effusions. DATA REPOSITORY: RADIATION DOSE DELIVERED:
[2023-07-03] MEDS: Rocuronium 50 MG/5 ML SYR IVP (06:32)
[2023-07-03] MEDS: Etomidate 20 MG/10 ML VIAL IVP (06:32)
[2023-07-03 06:44] LABS: HCT 51.9 % (40.0-50.0); HGB 17.1 g/dL (13.5-17.5); MCH 29.7 pg (27.0-33.0); MCHC 32.9 % (32.0-36.0); MCV 90 fL (80-95); Platelet Count 479 10^3/uL (130-400); RBC 5.75 10^6/uL (4.36-5.78); RDW 13.2 % (11.8-14.1); RDW-SD 44.5 fL; WBC 16.16 10^3/uL (4.4-10.8)
[2023-07-03] MEDS: PROPOFOL 1,000 MG/100 ML BTL 2.4 MG (06:46)
[2023-07-03 06:52] LABS: Lactate 6.2 mmol/L (0.6-1.4)
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
--- NOTE | 2023-07-03 07:06 | DI.CT_ITS ---
Exam(s) CT ABDOMEN PELVIS WO EXAM: CT ABDOMEN PELVIS WO CLINICAL HISTORY: distention, abdominal pain, s/p hiatal hernia repa. TECHNIQUE: Imaging Protocol: Axial computed tomography images with coronal and sagittal reformatted images were created and reviewed. COMPARISON: CT ABD PELVIS WITH CONTRAST from 05/27/2014 CR,RF RF BARIUM SWALLOW from 06/27/2023 RF RF BARIUM SWALLOW from 06/29/2023 CR,XR XR PORTABLE CHEST AP POST LINE from 07/03/2023 FINDINGS: ABDOMEN: Lung Bases: There are small bilateral pleural effusions and subjacent infiltrates. Calcifications ar e seen in the mediastinum consistent with prior granulomatous disease. There is a tiny amount of pne umomediastinum. Liver: Normal density. No measurable mass. Gallbladder and biliary tract: No radiodense calculus or biliary ductal dilation. Pancreas: Pancreatic atrophy. Spleen: Calcified granuloma in the spleen. Kidneys: Normal size, contour and axis.Bilateral nephrolithiasis. No evidence of obstructive uropath y. No masses seen. Adrenal glands: Stable right adrenal nodule. The left adrenal gland is unremarkable. This likely re flects an adenoma. Lymph nodes: Within normal limits. Abdominal Aorta: Abdominal portion non-dilated. PELVIS: Bladder:There is a Saldivar catheter in the urinary bladder. The urinary bladder is decompressed. Ther e is a small amount of air in the urinary bladder likely reflecting catheterization. Bowel: The stomach is distended. There is oral contrast in the stomach. There is oral contrast seen in the colon from the patient's recent barium examinations. There are multiple fluid-filled loops o f small bowel suggesting enteritis. The hedrick appear thickened. The findings are suggestive also of an ileus. Appendix is unremarkable. Peritoneal cavity: No ascites, collection or mesenteric inflammatory response. There is a large amou nt of pneumoperitoneum. There is what appears to be extravasated oral contrast adjacent to the stoma ch. Reproductive organs: Unremarkable as visualized. Bones: Within normal limits. Soft Tissues: Within normal limits. IMPRESSION: 1. Findings suggestive of bowel perforation. There is extravasated oral contrast may near the stomac h which may be the site of the perforation. 2. Moderate amount of abdominal pelvic ascites. 3. Mild pneumomediastinum. 4. Bilateral basilar infiltrates and bilateral pleural effusions. This may represent pneumonia. 5. Findings suggestive of a small bowel ileus with suspected enteritis. RADIATION DOSE DELIVERED: Total DLP DATA REPOSITORY: All CT scans at this facility are submitted to the National Radiology Data Registry (NRDR) Dose Index Registry (DIR) with the [employer] (A[employer]). RADIATION OPTIMIZATION: All CT scans at this facility use at least one of these dose optimization te chniques: automated exposure control; mA and/or kV adjustment per patient size (includes targeted exa ms where dose is matched to clinical indication); or iterative reconstruction.
[2023-07-03 07:13] LABS: ALT 119 U/L (16-63); AST 71 U/L (15-37); Albumin 1.8 g/dL (3.4-5.0); Alkaline Phosphatase 88 U/L (46-116); Anion Gap 19.9 mmol/L (3-11); BUN 43 mg/dL (7-18); Bilirubin, Total 5.4 mg/dL (0.2-1.0); CO2 15.1 mmol/L (21.0-32.0); CREATININE 2.2 mg/dL (0.70-1.30); Calcium 9.5 mg/dL (8.5-10.1); Chloride 102 mmol/L (98-107); Estimated GFR 34.51 (mL/min/1.73m2); Glucose 193 mg/dL (74-106); Potassium 3.6 mmol/L (3.5-5.1); Sodium 137 mmol/L (136-145); Total Protein 7.3 g/dL (6.4-8.2)
[2023-07-03 07:21] LABS: Absolute Basophil Count 0.16 10^3/uL (0.0-0.2); Absolute Lymphocyte Count 1.13 10^3/uL (1.2-3.4); Absolute Monocyte Count 1.13 10^3/uL (0.1-0.8); Absolute Neutrophil Count 12.44 10^3/uL (1.2-6.7); Atypical Lymphocytes % 1; Bands % 18; Diff Comment Manual Differential; Metamyelocytes % 6; Myelocytes % 2; RBC Morphology Normal
[2023-07-03 07:28] LABS: Bilirubin Moderate (Negative); Blood Trace-intact (Negative); Clarity Clear (Clear); Glucose 100 mg/dL (Negative); Ketones Negative (Negative); Leukocyte Esterase Negative (Negative); Nitrite Negative (Negative); Specific Gravity 1.025 (1.005-1.025); pH 5.5 (5-8)
[2023-07-03 07:28] LABS: Lipase 32 U/L (16-77); Troponin I < 50 ng/L (<or=60)
[2023-07-03 07:30] LABS: BE -12 mmol/L (-2-3); HCO3 18 mmol/L (22-26); pO2 98 mmHg (80-105); sO2 94 % (95-98); tCO2 17 mmol/L (23-27)
[2023-07-03 07:35] LABS: Bacteria Negative HPF (Negative); C & S Indicated? No; Casts 3-5 Fine Granular LPF (Negative); Crystals Few Amorphous HPF (Negative); Epithelial Cells Few HPF (Negative); Mucus Trace (Negative); RBC 0-2 HPF (0-2); WBC Negative HPF (0-5)
[2023-07-03 07:38] LABS: FIO2 50 %; Site Left Brachial; pCO2 60 mmHg (35-45); pH 7.09 (7.35-7.45)
[2023-07-03] MEDS: Midazolam 2 MG/2 ML VIAL 4 MG IVP (07:45)
[2023-07-03] MEDS: Ketamine 500 MG/10 ML VIAL 79 MG IVP (07:50)
--- NOTE | 2023-07-03 08:09 | DI.VRAD_ITS ---
PROCEDURE INFORMATION: Exam: CT Abdomen And Pelvis Without Contrast Exam date and time: 07/03/2023 6:59 AM Age: 57 years old Clinical indication: Bloating; Prior surgery; Surgery date: 3-7 days post-operative; Patient HX: Distention, abdominal pain, S/P hiatal hernia repair; ; Additional info: PT intubated TECHNIQUE: Imaging protocol: Computed tomography of the abdomen and pelvis without contrast. COMPARISON: 1. US ABDOMEN 11/07/2022 7:19 AM 2. RF BARIUM SWALLOW 06/29/2023 12:55 PM FINDINGS: Limitations: Image quality is degraded by artifact from the patient's arms, which were not elevated during imaging. Lack of intravenous contrast limits evaluation of the solid viscera and vasculature. Lungs: Predominantly dependent partial atelectasis of both lower lobes and to a lesser extent of the right middle lobe, with a trace right pleural effusion. Mediastinal space: Small amount of pneumomediastinum. Liver: Unremarkable, within the limits of noncontrast technique. Gallbladder and bile ducts: There is no intrahepatic or extrahepatic biliary ductal dilation. There are no calcified gallstones. There is some subtle slightly increased attenuation in the gallbladder which could represent sludge or noncalcified gallstones. Pancreas: Unremarkable. Spleen: Unremarkable. The spleen is normal in size. Adrenal glands: 1.3 cm right adrenal adenoma. The left adrenal gland is unremarkable. Kidneys and ureters: No hydronephrosis or hydroureter. 2 mm nonobstructing calculus in the lower pole of the left kidney. Stomach and bowel: The stomach is moderately distended with retained ingested material, fluid, and gas. Oral contrast was administered, which is confined to the stomach. There is also some retained high density contrast in the colon which is presumed to be from the recently performed barium swallow study. There are multiple fluid-filled loops of small bowel in the left hemiabdomen which appear somewhat thick-walled, which suggests enteritis. There are also scattered air-fluid levels elsewhere throughout the small bowel without a discrete transition point in small bowel caliber. The overall appearance suggest small bowel ileus. The large bowel is normal in caliber. Appendix: No findings to suggest appendicitis. Intraperitoneal space: Large amount of pneumoperitoneum. Moderate amount of ascites in the abdomen and pelvis. Extravasated oral contrast admixed with fluid is seen posterior to the proximal stomach (see series 2, images 13-24 and sagittal images 44-58). Retroperitoneal space: Unremarkable. No retroperitoneal collection or mass. Vasculature: Unremarkable. The abdominal aorta is normal in caliber. Lymph nodes: No pathologically enlarged lymph nodes. Urinary bladder: Decompressed by an indwelling Saldivar catheter. Trace gas within the bladder is presumed to be from recent catheterization. Reproductive: Top-normal size prostate gland. Bones/joints: Degenerative changes. No suspicious osseous lesions. Soft tissues: Localized subcutaneous fat stranding/infiltration in the ventral upper abdominal wall from presumed recent laparoscopic port placement. Small bilateral fat-containing inguinal hernias. IMPRESSION: 1. Findings consistent with gastric perforation: extravasated oral contrast posterior to the proximal stomach, large amount of pneumoperitoneum, moderate amount of abdominopelvic ascites and mild pneumomediastinum in the visualized lower thorax. 2. Findings consistent with small bowel ileus with suspected enteritis. 3. Bibasilar atelectasis with a trace right pleural effusion. THIS REPORT CONTAINS FINDINGS THAT MAY BE CRITICAL TO PATIENT CARE. The findings were verbally communicated via telephone conference at 8:08 AM EST on 07/03/2023 with Dimitri Hendrix. The findings were acknowledged and understood. Dictated and Authenticated by: Brisa Morrow MD. Ordering:ELVIA Mosley MD
--- NOTE | 2023-07-03 08:11 | DI.VRAD_ITS ---
PROCEDURE INFORMATION: Exam: XR Chest Exam date and time: 07/03/2023 6:38 AM Age: 57 years old Clinical indication: Device placement; Other: Post intubation; Prior surgery; Surgery date: 3-7 days post-operative; Surgery type: Abdominal TECHNIQUE: Imaging protocol: Radiologic exam of the chest. Views: 1 view. COMPARISON: No relevant prior studies for comparison. FINDINGS: Tubes, catheters and devices: There is an endotracheal tube in place, its tip projecting 2.2 cm above the la. Lungs: Low lung volumes with bibasilar atelectasis. No pulmonary edema or significant vascular congestion. Pleural spaces: Suspected small bilateral pleural effusions. No pneumothorax. Heart/Mediastinum: Heart size is normal. Cardiomediastinal contours are satisfactory. Bones/joints: Unremarkable. IMPRESSION: 1. Tip of endotracheal tube projects 2.2 cm above the la. 2. Low lung volumes with bibasilar atelectasis and suspected small bilateral pleural effusions. Dictated and Authenticated by: Brisa Morrow MD. Ordering:ELVIA Mosley MD
[2023-07-03] MEDS: fentaNYL 1,000 MCG in Normal Saline 80 ML 5.53 MCG IV (08:23)
--- NOTE | 2023-07-03 08:30 | W.EDPROG ---
Date of service: 07/03/23 Time of Service: 08:30 Medical Decision Making 830 -- Care signed out by Dr. Mathur: Patient in CT imaging having been intubated. Sign out plan to follow-up on consult to critical care and surgery. Patient seen immediately after returning from CT imaging. Patient has single 20-gauge IV left AC and nursing having difficulty establishing second IV. Patient hypotensive and not adequately sedated on low-dose propofol. Ketamine 1 mg/kg administered. Central line right internal jugular placed by me without complication. Line placement confirmed by x-ray. Patient has receiving second liter of crystalloid and remains in septic shock. I will initiate Levophed infusion. ABG reviewed and patient is acidotic. Vent adjusted by RT to increase tidal volume. I spoke with Dr. Moran, on-call general surgeon who reviewed CT and recommends transfer to tertiary care. She is concern for laceration of the esophagus. I immediately called [facility] to request stat transfer and awaiting callback. I called [facility] air ambulance unit to request availability. I spoke with Dr. Diaz, on-call critical care physician who evaluated patient at bedside and agrees with treatment plan. 845 -- I recieved callback from [facility] surgery and critical care, discussed ED presentation and course, they will accept the patient in transfer. Accepting physician is Dr. Grubbs. They recommend giving fluconazole 800 mg IV. [facility] contacted and will be transporting. 911 --18g right upper arm peripheral IV placed by me under ultrasound guidance for additional access. Imaging Data Radiologic Study: Imaging: X-Ray and CT Scan Radiologist's impression: cxr postintubation: 1. Tip of endotracheal tube projects 2.2 cm above the la. 2. Low lung volumes with bibasilar atelectasis and suspected small bilateral pleural effusions. CT of the abdomen pelvis: IMPRESSION: 1. Findings consistent with gastric perforation: extravasated oral contrast posterior to the proximal stomach, large amount of pneumoperitoneum, moderate amount of abdominopelvic ascites and mild pneumomediastinum in the visualized lower thorax. 2. Findings consistent with small bowel ileus with suspected enteritis. 3. Bibasilar atelectasis with a trace right pleural effusion. Lab Data Lab results reviewed: Yes I reviewed the patient's lab results. Labs: 07/03/23 07:25 Blood Blood Culture - Pending 07/03/23 06:47 Blood Blood Culture - Pending Laboratory Tests Range/Units 07/03/23 07/03/23 07/03/23 06:00 06:45 06:47 WBC (4.4-10.8) 10^3/uL 16.16 H RBC (4.36-5.78) 10^6/uL 5.75 Hgb (13.5-17.5) g/dL 17.1 Hct (40.0-50.0) % 51.9 H MCV (80-95) fL 90 MCH (27.0-33.0) pg 29.7 MCHC (32.0-36.0) % 32.9 RDW (11.8-14.1) % 13.2 Plt Count (130-400) 10^3/uL 479 H MPV (8.0-11.0) fL 10.0 Immature Gran % 0.0 Neutrophils % 59.0 Band Neutrophils % 18 Lymphocytes % 6.0 Atypical Lymphs % 1 Monocytes % 7.0 Eosinophils % 0.0 Basophils % 1.0 Metamyelocytes % 6 Myelocytes % 2 Nucleated RBC % (0.0-0.3) % 0.0 Absolute Neutrophils (1.2-6.7) 10^3/uL 12.44 H Absolute Lymphocytes (1.2-3.4) 10^3/uL 1.13 L Absolute Monocytes (0.1-0.8) 10^3/uL 1.13 H Absolute Eosinophils (0.0-0.7) 10^3/uL 0.00 Absolute Basophils (0.0-0.2) 10^3/uL 0.16 RBC Morphology Normal ABG Sample Site ABG pH (7.35-7.45) ABG pCO2 (35-45) mmHg ABG pO2 (80-105) mmHg ABG HCO3 (22-26) mmol/L ABG Total CO2 (23-27) mmol/L ABG O2 Saturation (95-98) % ABG Base Excess (-2-3) mmol/L VBG Lactate (0.6-1.4) mmol/L 6.2 H* Oxygen Liter Flow L FiO2 % Sodium (136-145) mmol/L 137 Potassium (3.5-5.1) mmol/L 3.6 Chloride (98-107) mmol/L 102 Carbon Dioxide (21.0-32.0) mmol/L 15.1 L Anion Gap (3-11) mmol/L 19.9 H BUN (7-18) mg/dL 43 H Creatinine (0.70-1.30) mg/dL 2.2 H Est GFR (CKD-EPI 2020) (mL/min/1.73m2) 34.51 Glucose (74-106) mg/dL 193 H Calcium (8.5-10.1) mg/dL 9.5 Total Bilirubin (0.2-1.0) mg/dL 5.4 H AST (15-37) U/L 71 H ALT (16-63) U/L 119 H Alkaline Phosphatase (46-116) U/L 88 Troponin I (<or=60) ng/L < 50 Total Protein (6.4-8.2) g/dL 7.3 Albumin (3.4-5.0) g/dL 1.8 L Lipase (16-77) U/L 32 Urine Color (Yellow) Urine Clarity (Clear) Urine pH (5-8) Ur Specific [place] (1.005-1.025) Urine Protein (Negative) mg/dL Urine Ketones (Negative) mg/dL Urine Blood (Negative) Urine Nitrite (Negative) Urine Bilirubin (Negative) Urine Urobilinogen (Up to 0.2) mg/dL Ur Leukocyte Esterase (Negative) Urine RBC (0-2) HPF Urine WBC (0-5) HPF Ur Epithelial Cells (Negative) HPF Urine Crystals (Negative) HPF Urine Bacteria (Negative) HPF Urine Casts (Negative) LPF Urine Mucus (Negative) Ur Culture Indicated? Urine Glucose (Negative) mg/dL Range/Units 07/03/23 07/03/23 07:20 07:25 WBC (4.4-10.8) 10^3/uL RBC (4.36-5.78) 10^6/uL Hgb (13.5-17.5) g/dL Hct (40.0-50.0) % MCV (80-95) fL MCH (27.0-33.0) pg MCHC (32.0-36.0) % RDW (11.8-14.1) % Plt Count (130-400) 10^3/uL MPV (8.0-11.0) fL Immature Gran % Neutrophils % Band Neutrophils % Lymphocytes % Atypical Lymphs % Monocytes % Eosinophils % Basophils % Metamyelocytes % Myelocytes % Nucleated RBC % (0.0-0.3) % Absolute Neutrophils (1.2-6.7) 10^3/uL Absolute Lymphocytes (1.2-3.4) 10^3/uL Absolute Monocytes (0.1-0.8) 10^3/uL Absolute Eosinophils (0.0-0.7) 10^3/uL Absolute Basophils (0.0-0.2) 10^3/uL RBC Morphology ABG Sample Site Left Brachial ABG pH (7.35-7.45) 7.09 L* ABG pCO2 (35-45) mmHg 60 H ABG pO2 (80-105) mmHg 98 ABG HCO3 (22-26) mmol/L 18 L ABG Total CO2 (23-27) mmol/L 17 L ABG O2 Saturation (95-98) % 94 L ABG Base Excess (-2-3) mmol/L -12 L VBG Lactate (0.6-1.4) mmol/L Oxygen Liter Flow L vt400/r14/p6 FiO2 % 50 Sodium (136-145) mmol/L Potassium (3.5-5.1) mmol/L Chloride (98-107) mmol/L Carbon Dioxide (21.0-32.0) mmol/L Anion Gap (3-11) mmol/L BUN (7-18) mg/dL Creatinine (0.70-1.30) mg/dL Est GFR (CKD-EPI 2020) (mL/min/1.73m2) Glucose (74-106) mg/dL Calcium (8.5-10.1) mg/dL Total Bilirubin (0.2-1.0) mg/dL AST (15-37) U/L ALT (16-63) U/L Alkaline Phosphatase (46-116) U/L Troponin I (<or=60) ng/L Total Protein (6.4-8.2) g/dL Albumin (3.4-5.0) g/dL Lipase (16-77) U/L Urine Color (Yellow) Dark Yellow Urine Clarity (Clear) Clear Urine pH (5-8) 5.5 Ur Specific [place] (1.005-1.025) 1.025 Urine Protein (Negative) mg/dL >=300 H Urine Ketones (Negative) mg/dL Negative Urine Blood (Negative) Trace-intact H Urine Nitrite (Negative) Negative Urine Bilirubin (Negative) Moderate H Urine Urobilinogen (Up to 0.2) mg/dL 2.0 H Ur Leukocyte Esterase (Negative) Negative Urine RBC (0-2) HPF 0-2 Urine WBC (0-5) HPF Negative Ur Epithelial Cells (Negative) HPF Few Urine Crystals (Negative) HPF Few Amorphous Urine Bacteria (Negative) HPF Negative Urine Casts (Negative) LPF 3-5 Fine Granular Urine Mucus (Negative) Trace Ur Culture Indicated? No Urine Glucose (Negative) mg/dL 100 H Procedures Central Line Placement Right IJ: Time Out Performed: Yes Patient Placed on Monitor/Pulse Ox: Yes MD Prep: mask, gown and gloves Central Line Prep: Chlorhexidine scrub and sterile drapes applied Local Anesthetic: Lidocaine 1% Amount of anesthesia used (mL): 4 Ultrasound Used for Placement: Yes Central Line Lumen Inserted: triple Post Procedure: good blood return, all ports aspirated, flushed, capped and sutured in place with nylon Post Procedure X-Ray: tip of catheter in good position Patient Tolerated Procedure: well and no complications Complications: none Critical Care Time Critical Care Time Critical Care Time: Yes Total Critical Care Time: 80 Attestation: I spent greater than 80 minutes addressing this patient's immediate life threats. Please see MDM section of note. This time was spent engaged in work directly related to the patient's care, exclusive of separate procedures, and failure to initiate these interventions would have likely resulted in clinically significant or life threatening deterioration in the patient's condition. Sign Out Sign Out Data: Sign Out Comment: The patient is a 57-year-old male, who presents to the emergency department this morning with profound complications related to a recent fundoplication surgery. The patient has had no meaningful oral intake or urine/feces output since Monday of last week. The reports that he was able to tolerate to 500 mL protein shakes on Monday, but otherwise had essentially no oral intake. Labs are consistent with acute kidney injury, elevated lactic acid level, and elevated total bilirubin. The initial CT images show significant free air in the abdomen, as well as distended loops of bowel with lobulated air near the bowel hedrick. The patient has improved with IV fluid hydration here in the emergency room. He underwent RSI on arrival due to a respiratory rate in the high 50s which have been ongoing for quite some time with profound hypoxemia. The CT images also revealed space-occupying lung disease in the lung bases bilaterally, which could represent infection or atelectasis. The patient was treated with IV Zosyn and IV vancomycin as well as sepsis bolusing. He will require admission for ICU level care. Vrad called to report that there was oral contrast extraluminal to the stomach pooling behind the stomach itself. There was a profound amount of free air in the abdomen and pelvis and there is ascites present. There also appears to be pneumomediastinum on the visualized portions of the lower aspect of the chest. There does not appear to be pneumatosis in the bowel wall, but there is an ileus in the small bowel. Last updated by Dimitri Hendrix MD at 07/03/23 08:09 Discharge Plan Disposition Patient Disposition: Transfer-Acute Inpatient Care Specific Acute Inpt Facility: [facility] Condition: Critical Discharge Details Clinical Impression: Septic shock, Bowel perforation, CHARMAINE (acute kidney injury), Hyperbilirubinemia, Metabolic acidosis Primary Care Provider: Jerardo Hicks ED Provider: Vick Hutson Home Meds and New Rx's Prescriptions: No Action magnesium oxide 400 mg (241.3 mg magnesium) tablet 400 mg PO DAILY [id number]-capryl 100 mg-150 mg- 50 mg-150 mg capsule 1,500 cap PO HS cranberry 500 mg capsule 500 mg PO DAILY Rx Instructions: administer with meals esomeprazole magnesium [Nexium] 40 mg capsule,delayed release(DR/EC) 40 mg PO DAILY Qty: 90 3RF esomeprazole magnesium [Nexium Packet] [address] for susp in packet 40 mg PO BID Qty: 60 1RF Rx Instructions: Must be liquid or powder to mix with water sucralfate [Carafate] 100 mg/mL suspension 10 ml PO QID 30 Days Qty: 1200 1RF Rx Instructions: swish in mouth and swallow; use after food/drink Tylenol Extra Strength 500 mg powder in packet 1,000 mg PO Q6H Qty: 32 2RF acetaminophen 500 mg Tablet 1,000 mg PO Q6H PRN multivitamin Tablet,Chewable 1 tab PO DAILY prednisolone 15 mg/5 mL solution 15 mg PO DAILY Qty: 240 0RF Rx Instructions: take 5 ml in the morning for 3 days, then stop tramadol 50 mg tablet 50 mg PO BID PRNQty: 6 0RF Rx Instructions: tka eone tablet by mouth up to every 12 hours if needed for severe pain Discharge Data Discharge Date/Time-TO BE ENTERED AT DEPARTURE: 07/03/23 10:00
--- NOTE | 2023-07-03 08:32 | DI.RAD_ITS ---
Exam(s) XR PORTABLE CHEST AP EXAM: XR PORTABLE CHEST AP CLINICAL HISTORY: confirm central line placement TECHNIQUE: 2D digital imaging was performed of the chest. One image was obtained. An AP view was ob tained. COMPARISON: CR,XR XR PORTABLE CHEST AP POST LINE from 07/03/2023 FINDINGS: There is poor inspiration. MEDIASTINUM: Normal. HEART: Normal. PULMONARY VASCULATURE: Normal. LUNGS: Clear. PLEURAL SPACE: Bilateral pleural effusions are seen. No pneumothorax is appreciated. BONE:Within normal limits for the patient's age. OTHER FINDINGS: The tip of the endotracheal tube is 3 cm above the la. There has been interval p lacement of a right IJ catheter. The tip is near the cavoatrial junction. Based on the CT scan for from the same day the patient has a large pneumoperitoneum. IMPRESSION: DATA REPOSITORY: RADIATION DOSE DELIVERED:
--- NOTE | 2023-07-03 08:33 | PUCC_ITS ---
General Date of Service Date of service: 07/03/23 Time of Service: 08:33 Assessment and Plan Assessment and plan (1) Gastric perforation: Status: Acute (2) Pneumoperitoneum: Status: Acute (3) Leukocytosis: Status: Acute (4) Respiratory acidosis: Status: Acute (5) High anion gap metabolic acidosis: Status: Acute (6) Normal anion gap metabolic acidosis: Status: Acute (7) Lactic acidosis: Status: Acute (8) Respiratory failure with hypoxia and hypercapnia: Status: Acute (9) Required emergency intubation: Status: Acute (10) Septic shock: Status: Acute (11) CHARMAINE (acute kidney injury): Status: Acute (12) Elevated LFTs: Status: Acute (13) Elevated bilirubin: Status: Acute (14) Status post Ren fundoplication: Status: Acute (15) Hypoalbuminemia: Status: Acute Assessment and plan: This is a 57 yo who underwent a Ren on 06/26/23 with revision 06/27/23 for dysphagia who now presents with a proximal gastric perforation resulting in multi-organ failure from septic shock. After discussing the case with the ED provider and Surgery, I agree that this is not an appropriate admission to our facility. I defer over-reaching plan - OR, transfer to my surgical colleague, however he will need advanced ICU care at a tertiary center. Recommendations Pulmonary: Hypoxic and hypercapnic respiratory failure - TV 6cc/kg, wean FiO2 as able - repeat ABG since now settled on vent - aspiration precautions - no OG tube given perf - would avoid PEEP>5 for now if able Cardiac: Septic Shock - MAP goal 65mmHg - recommend Levophed if needed for MAPs - anti-microbials as below Renal: CHARMAINE - maintain MAPS - Saldivar placement - strict I/O - possibly ATN from sepsis AGMA, NAGMA, resp acidosis mixed - due to lactic acidosis, CHARMAINE and likely underlying obstructive lung disease - can consider bicarb infusion for NAGMA I&O: Intake & Output 07/01/23 07/02/23 07/02/23 07/03/23 00:59 00:59 23:59 23:59 Weight 79 kg Daily Fluid Goal:: positive GI Nutrition: Gastric perforation s/p Ren - agree with Zosyn, vanc and fluconazole - recommend transfer to tertiary care Elevated LFT's and bili - as above Hypoalbuminemia Infectious Disease: Septic shock due to perforated viscus - Zosyn, vanc and fluconazole - tertiary care transfer for OR Hematologic: Leukocytosis - due to sepsis Neurologic: No acute concerns Endocrine: No acute concerns Lines: R IJ CVC Saldivar ETT Code Status: [place] Subjective Critical and life-threatening events over the past 24 hours: This is a 57 yo who underwent a laproscopic Ren fundoplication on 06/26/23. He then developed post operative acute postoperative dysphagia to liquids to was brought back to the OR 06/27/23 for a revision of the Ren. He was kept as an inpatient where he seemed to improve, although was still having some dysphagia. He was discharged 06/29/23. He presented to the ED today via ambulance for rapid breathing, weakness and abdominal pain. He was intubated in the ED due to respiratory distress. He has a white count of 16, was found to have complex acid base derrangements with a respiratory acidosis, metabolic GAP and non GAP acidosis. He has an CHARMAINE and an elevated bilirubin. I am unclear of a baseline of these labs, as I do not see that any were performed as an inpatient. He underwent a CT scan which finds a significant esophageal perforation with active extrav of oral contrast and significant pneumoperitoneum. The ED has placed a right IJ CVC. I was consulted to assess appropriateness of admission to [facility]. Exam Narrative Exam Narrative: Gen: intubated and sedated, jaundices HENT: pupils non responsive (recent ketamine, Versed and intubation with RSI), icteric. Chest: clear breath sounds anteriorly Heart: tachycardiac, no murmurs appreciated Abdomen: Distended with bruising and sutures from recent laproscopic procedure Extremities: cold and clammy feet Neuro: intubated and sedated Psych: intubated and sedated Most Recent VS/Results Last Vital Signs Temp 37.6 C H 07/03/23 06:30 Pulse 140 H 07/03/23 06:51 Resp 19 07/03/23 07:52 BP 86/59 L 07/03/23 07:52 Pulse Ox 94 07/03/23 07:52 Laboratory Results - last 24 hr 07/03/23 07/03/23 07/03/23 06:00 06:45 06:47 WBC 16.16 H RBC 5.75 Hgb 17.1 Hct 51.9 H MCV 90 MCH 29.7 MCHC 32.9 RDW 13.2 Plt Count 479 H MPV 10.0 Immature Gran % 0.0 Neutrophils % 59.0 Band Neutrophils % 18 Lymphocytes % 6.0 Atypical Lymphs % 1 Monocytes % 7.0 Eosinophils % 0.0 Basophils % 1.0 Metamyelocytes % 6 Myelocytes % 2 Nucleated RBC % 0.0 Absolute Neutrophils 12.44 H Absolute Lymphocytes 1.13 L Absolute Monocytes 1.13 H Absolute Eosinophils 0.00 Absolute Basophils 0.16 RBC Morphology Normal ABG Sample Site ABG pH ABG pCO2 ABG pO2 ABG HCO3 ABG Total CO2 ABG O2 Saturation ABG Base Excess VBG Lactate 6.2 H* Oxygen Liter Flow FiO2 Sodium 137 Potassium 3.6 Chloride 102 Carbon Dioxide 15.1 L Anion Gap 19.9 H BUN 43 H Creatinine 2.2 H Est GFR (CKD-EPI 2020) 34.51 Glucose 193 H Calcium 9.5 Total Bilirubin 5.4 H AST 71 H ALT 119 H Alkaline Phosphatase 88 Troponin I < 50 Total Protein 7.3 Albumin 1.8 L Lipase 32 Urine Color Urine Clarity Urine pH Ur Specific [place] Urine Protein Urine Ketones Urine Blood Urine Nitrite Urine Bilirubin Urine Urobilinogen Ur Leukocyte Esterase Urine RBC Urine WBC Ur Epithelial Cells Urine Crystals Urine Bacteria Urine Casts Urine Mucus Ur Culture Indicated? Urine Glucose 07/03/23 07/03/23 07:20 07:25 WBC RBC Hgb Hct MCV MCH MCHC RDW Plt Count MPV Immature Gran % Neutrophils % Band Neutrophils % Lymphocytes % Atypical Lymphs % Monocytes % Eosinophils % Basophils % Metamyelocytes % Myelocytes % Nucleated RBC % Absolute Neutrophils Absolute Lymphocytes Absolute Monocytes Absolute Eosinophils Absolute Basophils RBC Morphology ABG Sample Site Left Brachial ABG pH 7.09 L* ABG pCO2 60 H ABG pO2 98 ABG HCO3 18 L ABG Total CO2 17 L ABG O2 Saturation 94 L ABG Base Excess -12 L VBG Lactate Oxygen Liter Flow vt400/r14/p6 FiO2 50 Sodium Potassium Chloride Carbon Dioxide Anion Gap BUN Creatinine Est GFR (CKD-EPI 2020) Glucose Calcium Total Bilirubin AST ALT Alkaline Phosphatase Troponin I Total Protein Albumin Lipase Urine Color Dark Yellow Urine Clarity Clear Urine pH 5.5 Ur Specific [place] 1.025 Urine Protein >=300 H Urine Ketones Negative Urine Blood Trace-intact H Urine Nitrite Negative Urine Bilirubin Moderate H Urine Urobilinogen 2.0 H Ur Leukocyte Esterase Negative Urine RBC 0-2 Urine WBC Negative Ur Epithelial Cells Few Urine Crystals Few Amorphous Urine Bacteria Negative Urine Casts 3-5 Fine Granular Urine Mucus Trace Ur Culture Indicated? No Urine Glucose 100 H Review of Systems Unobtainable due to endotracheal tube Time spent with patient Time spent in Critical Care: 45 Time spent in Critical care included: Chart review, Documenting critically ill care, Time at immediate bedside and Discussing critically ill care with other medical staff
[2023-07-03] MEDS: Normal Saline 1,000 ML 1000 ML IV (08:34)
[2023-07-03] MEDS: PIPERACILLIN/TAZO 3.375 GM in Normal Saline 100 ML IVPB (08:34)
[2023-07-03] MEDS: Normal Saline-STERILE FIELD 0.9% 10 ML SYR (08:34)
[2023-07-03] MEDS: Norepinephrine in D5W 8 MG/250 ML BAG 9.375 MG IV (08:39)
[2023-07-03] MEDS: VANCOMYCIN/WATER (PEG) 1.75 GM/350 ML BAG IVPB (09:11)
[2023-07-03 09:16] LABS: BE (Venous) -12 mmol/L (-2-3); HCO3 (Venous) 16 mmol/L (23-28); O2 Sat (Venous) 86 %; TCO2 (Venous) 15 mmol/L (24-29); pCO2 (Venous) 40 mmHg (41-51); pO2 (Venous) 63 mmHg
[2023-07-03 09:21] LABS: Lactate 3.2 mmol/L (0.6-1.4)
[2023-07-03] MEDS: FLUCONAZOLE 200 MG/100 ML BAG 100 MG IVPB (09:41)
--- NOTE | 2023-07-04 01:59 | NUR.NOTE ---
+Postive Blood cultures Gram Positive Coccr
--- NOTE | 2023-07-04 08:54 | NUR.NOTE ---
Patient was transferred to [facility]. Preliminary positive blood culture result faxed to this unit. They are aware.
== END 2023-07-03 10:00 | disposition short-term general hospital (02) ==
PROVIDERS: Emergency Medicine Emergency Medical Services; Emergency Provider Student in an Organized Health Care Education/Training Program; PCP Neuromusculoskeletal Medicine & OMM
DX: K63.1 Perforation of intestine (nontraumatic) (principal); K66.8 Other specified disorders of peritoneum; D72.829 Elevated white blood cell count, unspecified; E87.4 Mixed disorder of acid-base balance; T81.12XA Postprocedural septic shock, initial encounter; T81.44XA Sepsis following a procedure, initial encounter; J96.02 Acute respiratory failure with hypercapnia; J96.01 Acute respiratory failure with hypoxia; E88.09 Other disorders of plasma-protein metabolism, not elsewhere classified; N17.9 Acute kidney failure, unspecified
CPT/HCPCS: 00123; 31500; 36415; 36556; 51702; 71045; 80053; 82805; 82962; 83690; 87040; 87077; 93005; 99291; 36600; 74176; 81003; 81015; 83605; 84484; 85025; 87186; 93010; J1450; J2250; J2543; J3010

== ENCOUNTER 2023-09-13 09:14 | Inpatient (IN) | payer OTHER, SELFPAY ==
[2023-09-13] VITALS (62 sets, daily range): BP systolic 120–177; BP diastolic 80–127; PULSE 75–111; RESP 12–32; TEMP 35.8–36.7; O2SAT 85–100
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
--- NOTE | 2023-09-13 09:37 | DI.CT_ITS ---
Exam(s) CT CHEST/ABD/PEL W EXAM: CT CHEST/ABD/PEL W CLINICAL HISTORY: vomiting, h/o gastric perforation and sepsis. TECHNIQUE: Imaging Protocol: Axial computed tomography images with coronal and sagittal reformatted images were created and reviewed CONTRAST MATERIAL: Intravenous: Omnipaque 350 Contrast volume:100 ml Oral: Yes. Oral contrast was also administered for bowel opacification. COMPARISON: CT CT ABDOMEN PELVIS WO from 07/03/2023 FINDINGS: CHEST: LUNGS: The appearance of the lung bases has significantly improved from the abdominal CT scan of 01/2023. The infiltrate trait in the left lung base has mostly resolved and there is also been an imp rovement the right lung base although there is some mild increased markings in both lung bases still evident. Remainder of the lung russell are clear. There are presently no pleural effusions. MEDIASTINUM: There is no hilar nor mediastinal adenopathy. Visualized thyroid unremarkable.Esophagus is not dilated. There is some extra luminal contrast again noted in the posterior mediastinum anteri or to the esophagus appearing unchanged from 07/03/2023. There does not appear to be increased amoun t of extraluminal contrast adjacent to the esophagus and there is no gas in the mediastinum. CARDIAC: Heart size is normal. There is presently no pericardial effusion. The previously present s mall pericardial effusion has resolved.Caliber of the thoracic aorta is within normal limits. OSSEOUS: No significant osseous lesions.. ABDOMEN: There is no ascites. There is presently a no free intraperitoneal air. STOMACH/DUODENUM: There is a properly positioned percutaneous PEG in the gastric lumen. No abscess a t this level nor elsewhere in the abdomen and pelvis. However, there is some intramural contrast not ed in the gastric fundus which is parallel to the outer surface of the stomach over the level the fun dus. There is no true extra luminal contrast. Duodenum appears unremarkable. LIVER: There are no focal hepatic lesions nor dilatation of intrahepatic ducts. GALLBLADDER/BILIARY: No obvious gallbladder pathology. CBD is not dilated. PANCREAS: No evidence of pancreatic mass nor dilatation of the pancreatic duct. SPLEEN: Spleen is not enlarged. There are no intrasplenic lesions. Splenic and portal veins are luna nt. ADRENALS: Left adrenal gland unremarkable. Small nodule again noted in the medial limb of the right adrenal gland, unchanged, measuring approximately 1.2 x 1.0 cm. Probable incidental adenoma. KIDNEYS: There is a single small unchanged nonobstructive 2 millimeter calculus in left kidney. No o ther focal renal findings. No hydronephrosis.. ABDOMINAL AORTA: Abdominal aorta is not enlarged. LYMPH NODES: There is no retroperitoneal nor paraaortic adenopathy. ABDOMINAL WALL: No evidence of significant anterior abdominal wall nor inguinal hernia. GI: There is no evidence of bowel obstruction. PELVIS: LYMPH NODES: There is no intrapelvic nor inguinal adenopathy. GI: Appendix is difficult to identify as a separate structure but there are no obvious signs of appen dicitis. Colon is collapsed. The ascending-right colon at the level of the hepatic flexure appearsm ildly edematous. May reflect colitis pattern at this level. There is, however, respiratory motion a rtifact in this region which may exaggerate these findings. URINARY BLADDER: Mild relatively uniform thickening of the bladder wall noted. No distinct mass nor calculi evident. REPRODUCTIVE: Prostate normal size. Seminal vesicles unremarkable. OSSEOUS: No significant osseous lesions. IMPRESSION: 1. Compared to the CT scan of 07/03/2023 (abundant free air at that time) there has been significant improvement. There is presently no free air nor ascites and no evidence of bowel obstruction nor abs cess in the abdomen and pelvis. Also some improvement in the appearance of the lung bases bilaterall y. 2. There is some extra luminal contrast again noted just anterior to the esophagus in the posterior m ediastinum, unchanged from previous. No new extravasation evident. 3. There is now a gastric PEG in satisfactory position. At the level the gastric fundus there is robbie ear density noted which is possibly surgical suture line or intramural contrast. Stomach is not dist ended. There is no fluid collection nor extra luminal contrast around the stomach. The duodenum june ears unremarkable. 4. Possible colitis pattern of the right-side of the colon as described above. This, however, may be exaggerated by the respiratory motion artifact at this location. 5. Again noted is a small nodule in the right adrenal gland measuring 12 x 10 mm, unchanged and prob ably a benign adenoma. 6. Nonobstructive unchanged 2 millimeter left kidney calculus. No hydronephrosis. Called to ER physician. RADIATION DOSE DELIVERED: 1,005.25mGy.cm Total DLP DATA REPOSITORY: All CT scans at this facility are submitted to the National Radiology Data Registry (NRDR) Dose Index Registry (DIR) with the [employer] (ACR). RADIATION OPTIMIZATION: All CT scans at this facility use at least one of these dose optimization te chniques: automated exposure control; mA and/or kV adjustment per patient size (includes targeted exa ms where dose is matched to clinical indication); or iterative reconstruction.
[2023-09-13] MEDS: Ondansetron 4 MG/2 ML VIAL IVP ×3 (09:51→15:32)
[2023-09-13] MEDS: Lactated Ringers 1,000 ML 2040 ML IV (09:51)
[2023-09-13] MEDS: HYDROmorphone 2 MG/ML SYR 1 MG IVP ×4 (09:52→19:54)
[2023-09-13 09:57] LABS: Abs Immature Grans 0.08 10^3/uL (0.0-0.06); Absolute Basophil Count 0.05 10^3/uL (0.0-0.2); Absolute Eosinophil Count 0.01 10^3/uL (0.0-0.7); Absolute Lymphocyte Count 1.27 10^3/uL (1.2-3.4); Absolute Monocyte Count 1.27 10^3/uL (0.1-0.8); Absolute Neutrophil Count 6.97 10^3/uL (1.2-6.7); Basophils % 0.5; Eosinophils % 0.1; HCT 37.6 % (40.0-50.0); HGB 12.8 g/dL (13.5-17.5); Immature Grans % 0.8; Lymphocytes % 13.2; MCH 29.1 pg (27.0-33.0); MCV 86 fL (80-95); MPV 8.3 fL (8.0-11.0); Monocytes % 13.2; Neutrophils % 72.2; Platelet Count 465 10^3/uL (130-400); RDW 13.2 % (11.8-14.1); RDW-SD 41.4 fL; WBC 9.65 10^3/uL (4.4-10.8)
[2023-09-13 10:07] LABS: INR 1.1 (0.9-1.1); Prothrombin Time 10.7 sec (9.1-11.1)
[2023-09-13 10:12] LABS: ALT 182 U/L (16-63); AST 47 U/L (15-37); Albumin 4.8 g/dL (3.4-5.0); Alkaline Phosphatase 161 U/L (46-116); Anion Gap 14.6 mmol/L (3-11); BUN 43 mg/dL (7-18); Bilirubin, Total 1.3 mg/dL (0.2-1.0); CO2 26.4 mmol/L (21.0-32.0); CREATININE 1.3 mg/dL (0.70-1.30); Calcium 10.6 mg/dL (8.5-10.1); Chloride 96 mmol/L (98-107); Estimated GFR 64.88 (mL/min/1.73m2); Glucose 146 mg/dL (74-106); Potassium 3.2 mmol/L (3.5-5.1); Sodium 137 mmol/L (136-145); Total Protein 10.3 g/dL (6.4-8.2)
[2023-09-13] MEDS: Breeza Beverage 473 ML BTL PO (10:14)
[2023-09-13] MEDS: Omnipaque 350 MG/ML 50 ML BTL IJ (10:19)
[2023-09-13] MEDS: Omnipaque 350 MG/ML 100 ML BTL IJ (10:29)
[2023-09-13] MEDS: Normal Saline - Diluent 50 ML VIAL IJ (10:37)
[2023-09-13 12:02] LABS: Lactate 1.6 mmol/L (0.6-1.4)
[2023-09-13 12:10] LABS: Bilirubin Negative (Negative); Blood Trace-intact (Negative); Clarity Clear (Clear); Glucose Negative (Negative); Ketones Negative (Negative); Leukocyte Esterase Negative (Negative); Nitrite Negative (Negative); Urobilinogen 0.2 mg/dL (Up to 0.2)
[2023-09-13 12:18] LABS: Bacteria Negative HPF (Negative); C & S Indicated? No; Casts Negative LPF (Negative); Crystals Negative HPF (Negative); Epithelial Cells Rare HPF (Negative); Mucus Negative (Negative); RBC 0-2 HPF (0-2); WBC 0-2 HPF (0-5)
[2023-09-13 12:55] LABS: Lactate 0.9 mmol/L (0.6-1.4)
[2023-09-13] MEDS: POTASSIUM CHLORIDE 20 MEQ/100 ML BAG 50 MEQ IVPB ×2 (15:33→17:51)
[2023-09-13] MEDS: Lactated Ringers 1,000 ML 125 ML IV ×2 (15:33→23:42)
[2023-09-13] MEDS: Normal Saline Flush 10 ML SYR IVP ×3 (15:33→23:42)
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
[2023-09-13 16:49] LABS: Lactate 0.9 mmol/L (0.6-1.4)
[2023-09-13] MEDS: LORazepam 2 MG/ML VIAL 1 MG IVP ×2 (18:12→23:36)
[2023-09-14] MEDS: HYDROmorphone 2 MG/ML SYR 1 MG IVP ×5 (01:06→21:11)
[2023-09-14 03:13] VITALS: BP 119/74; PULSE 80; RESP 16; TEMP 36.4; O2SAT 98
[2023-09-14 06:24] LABS: Abs Immature Grans 0.03 10^3/uL (0.0-0.06); Absolute Basophil Count 0.06 10^3/uL (0.0-0.2); Absolute Eosinophil Count 0.22 10^3/uL (0.0-0.7); Absolute Monocyte Count 0.87 10^3/uL (0.1-0.8); Absolute Neutrophil Count 2.43 10^3/uL (1.2-6.7); Basophils % 1.2; Eosinophils % 4.3; HCT 31.5 % (40.0-50.0); HGB 10.3 g/dL (13.5-17.5); Immature Grans % 0.6; Lymphocytes % 29.4; MCH 29.1 pg (27.0-33.0); MCHC 32.7 % (32.0-36.0); MCV 89 fL (80-95); MPV 8.3 fL (8.0-11.0); Neutrophils % 47.5; Platelet Count 296 10^3/uL (130-400); RBC 3.54 10^6/uL (4.36-5.78); RDW 13.1 % (11.8-14.1); RDW-SD 42.5 fL; WBC 5.11 10^3/uL (4.4-10.8)
[2023-09-14 06:34] LABS: Anion Gap 6.1 mmol/L (3-11); BUN 17 mg/dL (7-18); CO2 29.9 mmol/L (21.0-32.0); CREATININE 0.9 mg/dL (0.70-1.30); Calcium 8.8 mg/dL (8.5-10.1); Chloride 101 mmol/L (98-107); Estimated GFR 100.86 (mL/min/1.73m2); Glucose 120 mg/dL (74-106); Magnesium 1.9 mg/dL (1.8-2.4); Potassium 3.2 mmol/L (3.5-5.1); Sodium 137 mmol/L (136-145)
[2023-09-14] MEDS: Lactated Ringers 1,000 ML 125 ML IV ×3 (06:40→22:12)
[2023-09-14] MEDS: Ondansetron 4 MG/2 ML VIAL IVP ×3 (06:40→20:15)
[2023-09-14 07:36] VITALS: BP 132/85; PULSE 81; RESP 16; TEMP 36.3; O2SAT 94
[2023-09-14] MEDS: Normal Saline Flush 10 ML SYR IVP ×3 (09:50→22:03)
[2023-09-14 11:35] VITALS: BP 136/85; PULSE 73; RESP 73; TEMP 36.7; O2SAT 98
--- NOTE | 2023-09-14 12:58 | W.PM.PROGNOT ---
Date of Service Date of service: 09/14/23 Time of Service: 12:58 Assessment and Plan Assessment and plan (1) Vomiting: Status: Acute Assessment and plan: continue antiemetic. advance diet as tolerated. (2) Acute dehydration: Status: Acute Assessment and plan: continue IVF Clear liquid diet (3) CHARMAINE (acute kidney injury): Status: Acute Assessment and plan: prerenal and normalized with IV hydration continue to monitor (4) GERD (gastroesophageal reflux disease): Status: Chronic Assessment and plan: add pantoprazole IV while hospitalized (5) Hypokalemia due to excessive gastrointestinal loss of potassium: Status: Acute Assessment and plan: replete and follow normal magnesium level. discussed with DR Marhs Subjective Subjective Patient reports: feels better and tolerating liquids well Interval history since last seen: patient states symptoms improving and is tolerating some clears with antiemetics. no bm but passing gas, no abdominal pain. no fever or new c/o Exam Narrative Exam Narrative: White male older appearing than stated age in no acute distress resting quietly in his bed Head is atraumatic oral mucosa slightly dry neck with no JVD full range of motion Eyes nonicteric noninjected Cardiovascular regular rate and rhythm he is well-perfused Abdomen with PEG tube in place and clamped. No surrounding erythema or drainage from insertion site. Abdomen with old healed surgical scars midline hypoactive bowel sounds nontender Skin is pink warm dry well-perfused Moves all extremities with no peripheral edema Objective Last Vital Signs Temp 36.3 C L 09/14/23 07:36 Pulse 81 09/14/23 07:36 Resp 16 09/14/23 07:36 BP 132/85 09/14/23 07:36 Pulse Ox 94 09/14/23 07:36 Laboratory Results - last 24 hr 09/13/23 09/14/23 16:43 06:10 WBC 5.11 RBC 3.54 L Hgb 10.3 L D Hct 31.5 L MCV 89 MCH 29.1 MCHC 32.7 RDW 13.1 Plt Count 296 MPV 8.3 Immature Gran % 0.6 Neutrophils % 47.5 Lymphocytes % 29.4 Monocytes % 17.0 Eosinophils % 4.3 Basophils % 1.2 Nucleated RBC % 0.0 Absolute Neutrophils 2.43 Absolute Lymphocytes 1.50 Absolute Monocytes 0.87 H Absolute Eosinophils 0.22 Absolute Basophils 0.06 VBG Lactate 0.9 Sodium 137 Potassium 3.2 L Chloride 101 Carbon Dioxide 29.9 Anion Gap 6.1 BUN 17 Creatinine 0.9 Est GFR (CKD-EPI 2020) 100.86 Glucose 120 H Calcium 8.8 Magnesium 1.9 Time Spent with Patient Time Spent with Patient: 35-49 minutes Time was spent: preparing to see the patient(eg.review tests), obtaining and/or reviewing separately otained hiistory, ordering medications,tests, procedures, indepentently interpreting results and counseling the patient
[2023-09-14] MEDS: Pantoprazole 40 MG VIAL IVP (13:48)
[2023-09-14] MEDS: POTASSIUM CHLORIDE 10 MEQ/100 ML BAG 100 MEQ IVPB ×3 (13:48→16:10)
--- NOTE | 2023-09-14 14:56 | CHAPLAIN ---
José's room was darkened and his nurse was giving him meds when I visited. José said he's received good care from the nurses. His was with him. I explained my role and offered support.
[2023-09-14 15:16] VITALS: BP 130/83; PULSE 67; RESP 16; TEMP 36.6; O2SAT 98
[2023-09-14 19:51] VITALS: BP 138/83; PULSE 100; RESP 18; TEMP 36.9; O2SAT 97
[2023-09-14] MEDS: LORazepam 2 MG/ML VIAL 1 MG IVP (22:04)
[2023-09-14 23:10] VITALS: BP 117/69; PULSE 74; RESP 16; TEMP 36.5; O2SAT 97
[2023-09-15] MEDS: Ondansetron 4 MG/2 ML VIAL IVP ×2 (02:59→08:47)
[2023-09-15] MEDS: HYDROmorphone 2 MG/ML SYR 1 MG IVP ×4 (03:10→21:39)
[2023-09-15 03:21] VITALS: BP 145/86; PULSE 69; RESP 18; TEMP 36.7; O2SAT 97
[2023-09-15] MEDS: Lactated Ringers 1,000 ML 125 ML IV ×3 (05:57→22:25)
[2023-09-15 06:52] LABS: Anion Gap 8.5 mmol/L (3-11); BUN 7 mg/dL (7-18); CO2 27.5 mmol/L (21.0-32.0); CREATININE 0.8 mg/dL (0.70-1.30); Calcium 8.6 mg/dL (8.5-10.1); Chloride 101 mmol/L (98-107); Estimated GFR 104.51 (mL/min/1.73m2); Glucose 116 mg/dL (74-106); Potassium 3.2 mmol/L (3.5-5.1); Sodium 137 mmol/L (136-145)
[2023-09-15 07:11] VITALS: BP 127/84; PULSE 76; RESP 16; TEMP 36.6; O2SAT 97
[2023-09-15] MEDS: Pantoprazole 40 MG VIAL IVP ×2 (08:47→21:39)
[2023-09-15] MEDS: LORazepam 2 MG/ML VIAL 1 MG IVP ×3 (08:48→21:39)
[2023-09-15] MEDS: Normal Saline Flush 10 ML SYR IVP ×3 (08:48→21:40)
[2023-09-15 08:58] LABS: Lab Add On Test DONE
[2023-09-15 09:07] LABS: Magnesium 1.7 mg/dL (1.8-2.4)
[2023-09-15] MEDS: POTASSIUM CHLORIDE 20 MEQ/100 ML BAG 50 MEQ IVPB ×2 (09:12→11:07)
[2023-09-15 11:16] VITALS: BP 136/90; PULSE 71; RESP 18; TEMP 36.6; O2SAT 99
[2023-09-15] MEDS: MAGNESIUM SULFATE 2 GM/50 ML BAG IVPB (12:33)
[2023-09-15] MEDS: Sucralfate 1 GM TAB PO ×3 (12:36→21:40)
--- NOTE | 2023-09-15 12:52 | CMPROGNOTE_ITS ---
Date of service: 09/15/23 Time of Service: 12:53 Care Management Progress Note Progress Note Text Progress Note Text: S/O: José was lying in bed when CM met with him. He stated that he is doing ok at the moment, but feels that his pain is getting worse, as the medication is starting to wear off. His was present in the room during the visit. CM noted that he will be changed to PO medications prior to returning home. He stated that he is independent at baseline, and his will drive him home when ready. CM will continue to follow. A: José is a 57 year old male admitted to [facility] on 09/13/23 for intractable vomiting. P: Anticipate José will return home once medically cleared. He will transport via private vehicle, driven by his . He will follow up with his PCP and discharge plan of care. CM will continue to follow.
[2023-09-15 13:04] LABS: *AMPHETAMINES SCREEN URINE Negative (Negative); *BARBITURATES SCREEN URINE Negative (Negative); *BENZODIAZEPINES SCREEN URINE Negative (Negative); Cannabinoids THC Positive (Negative); Cocaine Screen,Urine Negative (Negative); METHADONE URINE SCREEN Negative (Negative); OPIATES URINE SCREEN Positive (Negative)
[2023-09-15 13:05] LABS: Tricyclic Antidepressants Negative (Negative)
[2023-09-15 15:12] VITALS: BP 130/86; PULSE 71; RESP 18; TEMP 36.9; O2SAT 98
--- NOTE | 2023-09-15 19:30 | W.PM.PROGNOT ---
Date of Service Date of service: 09/15/23 Time of Service: 19:30 Assessment and Plan Assessment and plan (1) Vomiting: Status: Acute Assessment and plan: Increase PPI and introduce carafate. Continue clear liquids tonight; consider advancement of diet tomorrow.] Did test positive for THC - consider cyclic vomiting. (2) Acute dehydration: Status: Acute Assessment and plan: continue IVF (3) CHARMAINE (acute kidney injury): Status: Resolved Assessment and plan: Prerenal due to dehydration, resolved. Continue to monitor kidney function. (4) GERD (gastroesophageal reflux disease): Status: Chronic Assessment and plan: As above Double protonix dose and introduce carafate (5) Hypokalemia due to excessive gastrointestinal loss of potassium: Status: Acute Assessment and plan: Replete potassium and magnesium (6) Hypomagnesemia: Status: Acute Assessment and plan: Replete (7) DVT prophylaxis: Status: Acute Assessment and plan: Enoxaparin (8) Discharge planning issues: Status: Acute Assessment and plan: Full code Anticipate discharge home in the next 24-48 hrs Subjective Subjective Interval history since last seen: Mr Mahmood states he is feeling a little better. He had a clear liquid dinner. He is still a little nauseated. He denies dizziness, CP, SOB, states he is having his chronic abdominal pain. He did have vomiting earlier today. We discussed the possibility of advancing his diet tomorrow if the night goes well. Exam Narrative Exam Narrative: General: a pleasant middle-aged male who is A&Ox3, appears slightly uncomfortable in bed HEENT: EOMI, MMM Heart: RRR, no m/r/g Lungs: CTAB Abdomen: soft, tender throughout the abdomen, nondistended, + gastrostomy tube in place Extremities: no edema BLEs Objective Last Vital Signs Temp 36.9 C 09/15/23 15:12 Pulse 71 09/15/23 15:12 Resp 18 09/15/23 15:12 BP 130/86 09/15/23 15:12 Pulse Ox 98 09/15/23 15:12 Laboratory Results - last 24 hr 09/15/23 09/15/23 06:02 12:40 Sodium 137 Potassium 3.2 L Chloride 101 Carbon Dioxide 27.5 Anion Gap 8.5 BUN 7 Creatinine 0.8 Est GFR (CKD-EPI 2020) 104.51 Glucose 116 H Calcium 8.6 Magnesium 1.7 L Urine Opiates Screen Positive A Urine Methadone Screen Negative Ur Barbiturates Screen Negative Ur Tricyclics Screen Negative Ur Amphetamines Screen Negative U Benzodiazepines Scrn Negative Urine Cocaine Screen Negative Ur THC Screen Positive A Add-On Test Request DONE Time Spent with Patient Time Spent with Patient: 35-49 minutes Time was spent: preparing to see the patient(eg.review tests), obtaining and/or reviewing separately otained hiistory, ordering medications,tests, procedures, referring, communicating with other health restorative care technician, indepentently interpreting results, counseling the patient and care coordination
[2023-09-15 19:39] VITALS: BP 125/87; PULSE 78; RESP 18; TEMP 37.1; O2SAT 97
[2023-09-15] MEDS: Enoxaparin 40 MG/0.4 ML SYR SC (21:38)
[2023-09-15 23:56] VITALS: BP 121/75; PULSE 78; RESP 18; TEMP 36.8; O2SAT 99
[2023-09-16] MEDS: HYDROmorphone 2 MG/ML SYR 1 MG IVP ×2 (02:25→08:30)
[2023-09-16] MEDS: Lactated Ringers 1,000 ML 125 ML IV (05:59)
[2023-09-16 06:41] LABS: Abs Immature Grans 0.02 10^3/uL (0.0-0.06); Absolute Basophil Count 0.06 10^3/uL (0.0-0.2); Absolute Eosinophil Count 0.49 10^3/uL (0.0-0.7); Absolute Lymphocyte Count 1.32 10^3/uL (1.2-3.4); Absolute Monocyte Count 0.55 10^3/uL (0.1-0.8); Basophils % 1.5; Eosinophils % 12.4; HCT 30.4 % (40.0-50.0); HGB 10.1 g/dL (13.5-17.5); Immature Grans % 0.5; Lymphocytes % 33.5; MCH 28.7 pg (27.0-33.0); MCHC 33.2 % (32.0-36.0); MCV 86 fL (80-95); MPV 8.2 fL (8.0-11.0); Neutrophils % 38.1; Platelet Count 281 10^3/uL (130-400); RBC 3.52 10^6/uL (4.36-5.78); RDW 12.5 % (11.8-14.1); RDW-SD 39.2 fL; WBC 3.94 10^3/uL (4.4-10.8)
[2023-09-16 06:53] LABS: Anion Gap 6.5 mmol/L (3-11); BUN 4 mg/dL (7-18); CO2 29.5 mmol/L (21.0-32.0); CREATININE 0.7 mg/dL (0.70-1.30); Calcium 8.6 mg/dL (8.5-10.1); Chloride 103 mmol/L (98-107); Estimated GFR 108.82 (mL/min/1.73m2); Glucose 94 mg/dL (74-106); Magnesium 1.8 mg/dL (1.8-2.4); Potassium 3.4 mmol/L (3.5-5.1); Sodium 139 mmol/L (136-145)
[2023-09-16 07:27] VITALS: BP 150/87; PULSE 77; RESP 17; TEMP 36.5; O2SAT 98
[2023-09-16] MEDS: Pantoprazole 40 MG VIAL IVP (08:30)
[2023-09-16] MEDS: Sucralfate 1 GM TAB PO ×4 (08:30→20:56)
[2023-09-16] MEDS: POTASSIUM CHLORIDE 20 MEQ/100 ML BAG 50 MEQ IVPB ×2 (08:31→11:16)
[2023-09-16] MEDS: Normal Saline Flush 10 ML SYR IVP ×3 (08:31→22:38)
[2023-09-16 09:29] LABS: Source Nasal/Nares
[2023-09-16] MEDS: MAGNESIUM SULFATE 2 GM/50 ML BAG IVPB (09:48)
[2023-09-16 10:00] LABS: COVID-19 PCR Negative (Negative)
[2023-09-16] MEDS: HYDROmorphone 2 MG TAB PO ×2 (13:06→18:23)
--- NOTE | 2023-09-16 14:22 | W.PM.PROGNOT ---
Date of Service Date of service: 09/16/23 Time of Service: 14:23 Assessment and Plan Assessment and plan (1) Vomiting: Status: Resolved Assessment and plan: Advance diet. Changed PPI to PO. Did test positive for THC - consider cyclic vomiting. (2) Acute dehydration: Status: Resolved Assessment and plan: Discontinue IVF. (3) CHARMAINE (acute kidney injury): Status: Resolved Assessment and plan: Prerenal due to dehydration, resolved. Continue to monitor kidney function. (4) GERD (gastroesophageal reflux disease): Status: Chronic Assessment and plan: As above Transition PPI to PO and continue carafate (5) Hypokalemia due to excessive gastrointestinal loss of potassium: Status: Acute Assessment and plan: Replete potassium and magnesium (6) Hypomagnesemia: Status: Acute Assessment and plan: Replete (7) DVT prophylaxis: Status: Acute Assessment and plan: Enoxaparin (8) Discharge planning issues: Status: Acute Assessment and plan: Full code Anticipate discharge home tomorrow Subjective Subjective Interval history since last seen: Mr Mahmood feels better. Denies dizziness, CP, SOB, nausea. Still having some abdominal pain. Tolerating clears and would like his diet advanced. Exam Narrative Exam Narrative: General: a pleasant middle-aged male who is A&Ox3, appears slightly uncomfortable in bed HEENT: EOMI, MMM Heart: RRR, no m/r/g Lungs: CTAB Abdomen: soft, tender throughout the abdomen, nondistended, + gastrostomy tube in place Extremities: no edema BLEs Objective Last Vital Signs Temp 36.5 C 09/16/23 07:27 Pulse 77 09/16/23 07:27 Resp 17 09/16/23 07:27 BP 150/87 H 09/16/23 07:27 Pulse Ox 98 09/16/23 07:27 Laboratory Results - last 24 hr 09/16/23 09/16/23 06:15 09:20 WBC 3.94 L RBC 3.52 L Hgb 10.1 L Hct 30.4 L MCV 86 MCH 28.7 MCHC 33.2 RDW 12.5 Plt Count 281 MPV 8.2 Immature Gran % 0.5 Neutrophils % 38.1 Lymphocytes % 33.5 Monocytes % 14.0 Eosinophils % 12.4 Basophils % 1.5 Nucleated RBC % 0.0 Absolute Neutrophils 1.50 Absolute Lymphocytes 1.32 Absolute Monocytes 0.55 Absolute Eosinophils 0.49 Absolute Basophils 0.06 Sodium 139 Potassium 3.4 L Chloride 103 Carbon Dioxide 29.5 Anion Gap 6.5 BUN 4 L Creatinine 0.7 Est GFR (CKD-EPI 2020) 108.82 Glucose 94 Calcium 8.6 Magnesium 1.8 COVID-19 Source Nasal/Nares SARS-CoV-2 (PCR) Negative Time Spent with Patient Time Spent with Patient: 25-34 minutes Time was spent: preparing to see the patient(eg.review tests), obtaining and/or reviewing separately otained hiistory, ordering medications,tests, procedures, referring, communicating with other health certified social workers in health care, indepentently interpreting results, counseling the patient and care coordination
[2023-09-16 16:20] VITALS: BP 144/85; PULSE 75; RESP 18; TEMP 36.4; O2SAT 99
[2023-09-16] MEDS: LORazepam 2 MG/ML VIAL 1 MG IVP ×2 (18:23→22:37)
[2023-09-16] MEDS: Docusate Sodium 100 MG/10 ML CUP PO (20:56)
[2023-09-16] MEDS: Enoxaparin 40 MG/0.4 ML SYR SC (20:57)
[2023-09-16 23:34] VITALS: BP 128/88; PULSE 93; RESP 18; TEMP 36.9; O2SAT 97
[2023-09-17] MEDS: HYDROmorphone 2 MG TAB PO ×2 (00:24→06:11)
[2023-09-17 06:57] LABS: Abs Immature Grans 0.02 10^3/uL (0.0-0.06); Absolute Basophil Count 0.05 10^3/uL (0.0-0.2); Absolute Eosinophil Count 0.59 10^3/uL (0.0-0.7); Absolute Lymphocyte Count 1.19 10^3/uL (1.2-3.4); Absolute Monocyte Count 0.65 10^3/uL (0.1-0.8); Absolute Neutrophil Count 2.29 10^3/uL (1.2-6.7); Eosinophils % 12.3; HGB 10.6 g/dL (13.5-17.5); Immature Grans % 0.4; Lymphocytes % 24.8; MCH 29.1 pg (27.0-33.0); MCHC 34.2 % (32.0-36.0); MCV 85 fL (80-95); MPV 8.7 fL (8.0-11.0); Monocytes % 13.6; Neutrophils % 47.9; Platelet Count 310 10^3/uL (130-400); RBC 3.64 10^6/uL (4.36-5.78); RDW 12.3 % (11.8-14.1); RDW-SD 38.4 fL; WBC 4.79 10^3/uL (4.4-10.8)
[2023-09-17 07:13] LABS: Anion Gap 9.4 mmol/L (3-11); BUN 2 mg/dL (7-18); CO2 27.6 mmol/L (21.0-32.0); CREATININE 0.8 mg/dL (0.70-1.30); Calcium 8.6 mg/dL (8.5-10.1); Chloride 99 mmol/L (98-107); Estimated GFR 104.51 (mL/min/1.73m2); Glucose 113 mg/dL (74-106); Magnesium 1.7 mg/dL (1.8-2.4); Potassium 3.5 mmol/L (3.5-5.1); Sodium 136 mmol/L (136-145)
[2023-09-17 07:33] VITALS: BP 147/93; PULSE 77; RESP 17; TEMP 36.6; O2SAT 96
[2023-09-17] MEDS: Sucralfate 1 GM TAB PO ×2 (07:41→11:19)
[2023-09-17] MEDS: Normal Saline Flush 10 ML SYR IVP (07:42)
[2023-09-17] MEDS: Magnesium Oxide 400 MG TAB PO (09:32)
[2023-09-17] MEDS: LORazepam 1 MG TAB PO (12:46)
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
[2023-09-17 15:25] VITALS: BP 138/89; PULSE 63; RESP 16; TEMP 36.1; O2SAT 99
--- NOTE | 2023-09-17 15:29 | PDOC.CMDIS ---
Date of service: 09/17/23 Time of Service: 15:29 LACE Index Scoring Tool Questions: Length of Stay (in days): 4 - 6 Was the patient admitted via the E.D.?: Yes E.D. Visits: 1 Answers: Total Score: 8 Risk of Readmission: Low Risk Care Management Discharge Plan Reason for Hospitalization: Intractable vomiting Discharge Plan: José will return home with no new services. His will drive him home via private vehicle. He will follow up with his PCP and discharge plan of care. Patient/Family Education Needs: Review discharge instructions and limitations, discussion of self care needs including ask me three. [facility] Health Related Social Needs: No Data to Display
== END 2023-09-17 16:08 | disposition home or self-care (01) | DRG 684 ==
LOC: ER 13:14 → MS 14:50
PROVIDERS: Internal Medicine; Nurse Practitioner Acute Care; Nurse Practitioner Family; Admitting Provider Family Medicine; Emergency Provider Emergency Medicine Emergency Medical Services; PCP Neuromusculoskeletal Medicine & OMM; Visit Provider Family Medicine
DX: N17.9 Acute kidney failure, unspecified (principal); R11.15 Cyclical vomiting syndrome unrelated to migraine; E86.0 Dehydration; K52.9 Noninfective gastroenteritis and colitis, unspecified; K21.9 Gastro-esophageal reflux disease without esophagitis; E87.6 Hypokalemia; M54.9 Dorsalgia, unspecified; N20.0 Calculus of kidney; K44.9 Diaphragmatic hernia without obstruction or gangrene; F12.90 Cannabis use, unspecified, uncomplicated; K22.70 Barrett's esophagus without dysplasia; E83.42 Hypomagnesemia; G89.29 Other chronic pain; R10.9 Unspecified abdominal pain
CPT/HCPCS: 00123; 36410; 36415; 74177; 80048; 80053; 80307; 87040; 87635; 96361; 96374; 96375; 96376; 99285; J1650; 71260; 81003; 81015; 83605; 83735; 85025; 85610; 99222; 99232; 99238; J1170; J2060; J2405; J2470; J3475; J3480; J3490; Q9967

== ENCOUNTER 2023-10-15 16:17 | Emergency (ER) | payer OTHER, SELFPAY ==
[2023-10-15] VITALS (41 sets, daily range): BP systolic 153–189; BP diastolic 91–123; PULSE 67–120; RESP 8–29; TEMP 35.9–36; O2SAT 95–100
[2023-10-15 17:09] LABS: Abs Immature Grans 0.05 10^3/uL (0.0-0.06); Absolute Basophil Count 0.07 10^3/uL (0.0-0.2); Absolute Eosinophil Count 0.04 10^3/uL (0.0-0.7); Absolute Lymphocyte Count 1.04 10^3/uL (1.2-3.4); Absolute Monocyte Count 0.55 10^3/uL (0.1-0.8); Basophils % 0.8; Eosinophils % 0.4; HCT 44.7 % (40.0-50.0); HGB 15.1 g/dL (13.5-17.5); Immature Grans % 0.6; Lymphocytes % 11.6; MCH 28.4 pg (27.0-33.0); MCHC 33.8 % (32.0-36.0); MCV 84 fL (80-95); MPV 8.5 fL (8.0-11.0); Monocytes % 6.1; Neutrophils % 80.5; Platelet Count 350 10^3/uL (130-400); RBC 5.31 10^6/uL (4.36-5.78); RDW 12.9 % (11.8-14.1); RDW-SD 39.8 fL; WBC 8.95 10^3/uL (4.4-10.8)
[2023-10-15] MEDS: Normal Saline 1,000 ML 1000 ML IV ×2 (17:14→19:41)
--- NOTE | 2023-10-15 17:15 | RT.EKG_ITS ---
APPROVED REPORT Exam: Resting ECG Reason for Exam: medical office coordinator Patient Location: E HR:103 bpm ECG Measurements Heart Rate 103 AXIS VA 150 P 38 QRSd 119 QRS 12 QT 338 T -7 QTc 442 Conclusion Sinus tachycardia [address] changes no stemi
[2023-10-15 17:25] LABS: ALT 80 U/L (16-63); AST 28 U/L (15-37); Alkaline Phosphatase 93 U/L (46-116); Anion Gap 17.7 mmol/L (3-11); BUN 7 mg/dL (7-18); Bilirubin, Total 0.6 mg/dL (0.2-1.0); CO2 23.3 mmol/L (21.0-32.0); CREATININE 1.2 mg/dL (0.70-1.30); Calcium 11.5 mg/dL (8.5-10.1); Chloride 103 mmol/L (98-107); Estimated GFR 70.98 (mL/min/1.73m2); Glucose 153 mg/dL (74-106); Potassium 3.4 mmol/L (3.5-5.1); Sodium 144 mmol/L (136-145); Total Protein 9.5 g/dL (6.4-8.2)
[2023-10-15] MEDS: Droperidol 5 MG/2 ML VIAL IVP (17:27)
[2023-10-15 17:35] LABS: Lipase 15 U/L (16-77)
[2023-10-15] MEDS: Metoclopramide 10 MG/2 ML VIAL IVP (18:56)
[2023-10-15] MEDS: Droperidol 5 MG/2 ML VIAL 2.5 MG IVP (19:40)
[2023-10-15] MEDS: Promethazine 25 MG TAB PO (20:14)
[2023-10-15] MEDS: Famotidine 20 MG/2 ML VIAL IVP (20:15)
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
== END 2023-10-15 21:11 | disposition home or self-care (01) ==
PROVIDERS: Emergency Provider Emergency Medicine; PCP Neuromusculoskeletal Medicine & OMM
DX: R11.15 Cyclical vomiting syndrome unrelated to migraine (principal)
CPT/HCPCS: 80053; 83690; 93005; 96361; 96374; 96375; 96376; 99284; 85025; 93010; J1790; J2765

== ENCOUNTER 2023-10-16 15:35 | Emergency (ER) | payer OTHER, SELFPAY ==
[2023-10-16 15:59] VITALS: BP 181/106; PULSE 82; RESP 16; TEMP 36.2; O2SAT 96
[2023-10-16 17:38] LABS: Abs Immature Grans 0.04 10^3/uL (0.0-0.06); Absolute Basophil Count 0.04 10^3/uL (0.0-0.2); Absolute Eosinophil Count 0.01 10^3/uL (0.0-0.7); Absolute Lymphocyte Count 0.94 10^3/uL (1.2-3.4); Absolute Monocyte Count 0.61 10^3/uL (0.1-0.8); Absolute Neutrophil Count 8.03 10^3/uL (1.2-6.7); Basophils % 0.4; Eosinophils % 0.1; HCT 42.1 % (40.0-50.0); Immature Grans % 0.4; Lymphocytes % 9.7; MCH 28.4 pg (27.0-33.0); MCHC 33.3 % (32.0-36.0); MCV 85 fL (80-95); MPV 8.7 fL (8.0-11.0); Monocytes % 6.3; Neutrophils % 83.1; Platelet Count 371 10^3/uL (130-400); RBC 4.93 10^6/uL (4.36-5.78); RDW 13.2 % (11.8-14.1); RDW-SD 40.8 fL; WBC 9.67 10^3/uL (4.4-10.8)
[2023-10-16 17:47] LABS: Prothrombin Time 10.4 sec (9.1-11.1)
[2023-10-16] MEDS: FAMOTIDINE 20 MG in Normal Saline 100 ML 400 MG IVPB (17:49)
[2023-10-16] MEDS: Ondansetron 4 MG/2 ML VIAL 8 MG IVP (17:49)
[2023-10-16] MEDS: Pantoprazole 40 MG VIAL 80 MG IVP (17:50)
[2023-10-16 17:56] LABS: ALT 65 U/L (16-63); AST 19 U/L (15-37); Albumin 5.2 g/dL (3.4-5.0); Alkaline Phosphatase 81 U/L (46-116); Anion Gap 15.3 mmol/L (3-11); BUN 17 mg/dL (7-18); Bilirubin, Total 0.6 mg/dL (0.2-1.0); CO2 24.7 mmol/L (21.0-32.0); CREATININE 1.1 mg/dL (0.70-1.30); Calcium 10.6 mg/dL (8.5-10.1); Chloride 107 mmol/L (98-107); Estimated GFR 78.79 (mL/min/1.73m2); Glucose 142 mg/dL (74-106); Lipase 15 U/L (16-77); Potassium 3.4 mmol/L (3.5-5.1); Sodium 147 mmol/L (136-145); Total Protein 9.8 g/dL (6.4-8.2); Troponin I < 50 ng/L (< or =60)
[2023-10-16] MEDS: Normal Saline 1,000 ML 1000 ML IV (18:00)
--- NOTE | 2023-10-16 18:30 | DI.CT_ITS ---
Exam(s) CT ABDOMEN PELVIS W EXAM: CT ABDOMEN PELVIS W CLINICAL HISTORY: ABDOMINAL PAIN. TECHNIQUE: Imaging Protocol: Axial computed tomography images with coronal and sagittal reformatted images were created and reviewed CONTRAST MATERIAL: Intravenous: Omnipaque-350 100cc Oral: None COMPARISON: CT CT CHEST/ABD/PEL W from 09/13/2023 FINDINGS: VISUALIZED LUNG BASES: There is unchanged infiltrate in the posterior basal segment of the right lowe r lobe and mild increased markings in the left lung base also again noted. No pleural effusions.. ABDOMEN: The previously present gastric PEG has been removed. Surgical suture line is again noted along the u pper greater curvature of the stomach. There is some possible free air evident between the anterior wall of the distal stomach and the anterior abdominal wall. There few slightly dilated left abdomina l small bowel jejunal loops which measure up to diameter of 3 cm. LIVER: There are no focal hepatic lesions evident. No dilated intrahepatic ducts. GALLBLADDER/BILIARY: No obvious gallbladder pathology. CBD is not dilated. PANCREAS: No evidence of pancreatic mass nor dilatation of the pancreatic duct. SPLEEN: Spleen size normal. Tiny calcified granuloma noted anteriorly in the spleen. No other focal splenic findings. Splenic and portal veins are patent. ADRENALS: There are no significant adrenal masses. KIDNEYS:There are tiny nonobstructive calculi in both kidneys. No hydronephrosis. No cysts nor alex d renal masses.. ABDOMINAL AORTA: Abdominal aorta is not enlarged. LYMPH NODES:There is no retroperitoneal nor paraaortic adenopathy. ABDOMINAL WALL: No evidence of significant anterior abdominal wall nor inguinal hernia. PELVIS: GI: No evidence of appendicitis.No evidence of sigmoid diverticulitis.Colon is predominately collapse d. LYMPH NODES: There is no intrapelvic nor inguinal adenopathy. REPRODUCTIVE: Prostate not enlarged. Seminal vesicles unremarkable. URINARY BLADDER: No calculi nor obvious masses evident OSSEOUS: No fractures and no significant osseous lesions. Degenerative disc disease at L3-4 level noted. IMPRESSION: 1. Compared to the prior CT scan of 09/13/2023 there has been interval removal of the gastric PEG. T here appears to be some free air between the anterior wall of the distal half of the stomach and ante rior abdominal wall. This may or may not be related to the recent PEG. Also again noted is evidence of previous gastric surgery with a suture line along the upper greater curvature. 2. There are few slightly dilated jejunal loops. Cannot exclude developing bowel obstruction. There is no ascites. No fcebq-szqauuzfj-igjfcysinbc abscess evident. 3. Mild infiltrate in the lung bases again noted. No pleural effusions. First read by [facility]. Final report called by myself to ER physician 9:25 a.m. RADIATION DOSE DELIVERED: 729.03mGy.cm Total DLP DATA REPOSITORY: All CT scans at this facility are submitted to the National Radiology Data Registry (NRDR) Dose Index Registry (DIR) with the [employer] (A[employer]). RADIATION OPTIMIZATION: All CT scans at this facility use at least one of these dose optimization te chniques: automated exposure control; mA and/or kV adjustment per patient size (includes targeted exa ms where dose is matched to clinical indication); or iterative reconstruction.
[2023-10-16] MEDS: Omnipaque 350 MG/ML 100 ML BTL IJ (19:21)
[2023-10-16] MEDS: Normal Saline Flush 10 ML SYR IVP (19:22)
[2023-10-16] MEDS: Normal Saline - Diluent 50 ML VIAL IJ (19:23)
--- NOTE | 2023-10-16 19:58 | DI.VRAD_ITS ---
PROCEDURE INFORMATION: Exam: CT Abdomen And Pelvis With Contrast Exam date and time: 10/16/2023 7:26 PM Age: 58 years old Clinical indication: Abdominal pain; Prior surgery; Surgery date: 1-6 months; Surgery type: Hernia repair, yamilet procedure, patient HX: Generalized abd pain, blood in stool TECHNIQUE: Imaging protocol: Computed tomography of the abdomen and pelvis with contrast. Radiation optimization: All CT scans at this facility use at least one of these dose optimization techniques: automated exposure control; mA and/or kV adjustment per patient size (includes targeted exams where dose is matched to clinical indication); or iterative reconstruction. Contrast material: OMNIPAQUE 350; Contrast volume: 100 ml; Contrast route: INTRAVENOUS (IV); COMPARISON: CT CHEST/ABD/PEL W 09/13/2023 10:22 AM FINDINGS: Lungs: Mild opacities in the lower lobes may represent atelectasis or pneumonia. Liver: Normal. No mass. Gallbladder and bile ducts: The gallbladder is unremarkable Pancreas: Normal. No ductal dilation. Spleen: Normal. No splenomegaly. Adrenal glands: Normal. No mass. Kidneys and ureters: Nonobstructing left renal calculus. No ureteral calculus Stomach and bowel: Sutures in the stomach. Loops of jejunum are dilated and taper more distally. This may represent early obstruction or ileus . Bowel wall thickening in the right colon and transverse colon may represent colitis in the appropriate clinical setting. Appendix: No evidence of appendicitis. Intraperitoneal space: Unremarkable. No free air. No significant fluid collection. Vasculature: Unremarkable. No abdominal aortic aneurysm. Lymph nodes: Unremarkable. No enlarged lymph nodes. Urinary bladder: The bladder is distended 9.5 cm Reproductive: Unremarkable as visualized. Bones/joints: Unremarkable. No acute fracture. Soft tissues: Unremarkable. IMPRESSION: 1. Loops of jejunum are dilated and taper more distally. This may represent early obstruction or ileus . 2. Bowel wall thickening in the right colon and transverse colon may represent colitis in the appropriate clinical setting. Dictated and Authenticated by: Keke Hannon MD. Ordering:[facility] Charan Joshua MD
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
--- NOTE | 2023-10-17 09:44 | W.ED.FU ---
Date of service: 10/17/23 Time of Service: 09:44 Follow Up Plan: Received call from Dr. Frederick, he notes previous PEG tube has reviewed and removed and there is some possible free air evident between the anterior wall of the distal stomach and the anterior abdominal wall. He states this could be from G-tube removal recently. He also notes there are few slightly dilated left abdominal small bowel jejunal loops which measure up to a diameter of 3 mm. I called the patient who noted that he was feeling well around 2 AM and took his medicine and then has had recurrent vomiting since that time. I reviewed the new results of the CT scan with the patient. I advised he follow-up with his specialist at this time or return to the emergency department for further evaluation should he not be able to be seen by his specialist today.
== END 2023-10-16 20:28 | disposition home or self-care (01) ==
PROVIDERS: Emergency Provider Emergency Medicine; PCP Neuromusculoskeletal Medicine & OMM
DX: R10.9 Unspecified abdominal pain (principal); R11.2 Nausea with vomiting, unspecified; R00.0 Tachycardia, unspecified; F17.220 Nicotine dependence, chewing tobacco, uncomplicated
CPT/HCPCS: 80053; 83690; 86850; 86900; 86901; 96361; 96374; 96375; 99285; 74177; 83735; 84484; 85025; 85610; 99284; J2405; J2470; J3490

== ENCOUNTER 2023-11-21 14:19 | Inpatient (IN) | payer OTHER, SELFPAY ==
[2023-11-21 14:26] VITALS: BP 131/114; PULSE 107; RESP 22; TEMP 36.3; O2SAT 100
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
[2023-11-21 14:49] LABS: Abs Immature Grans 0.04 10^3/uL (0.0-0.06); Absolute Basophil Count 0.02 10^3/uL (0.0-0.2); Absolute Eosinophil Count 0.02 10^3/uL (0.0-0.7); Absolute Lymphocyte Count 1.46 10^3/uL (1.2-3.4); Absolute Monocyte Count 1.01 10^3/uL (0.1-0.8); Basophils % 0.2; Eosinophils % 0.2; HCT 51.5 % (40.0-50.0); HGB 17.7 g/dL (13.5-17.5); Immature Grans % 0.5; Lymphocytes % 16.7; MCH 28.9 pg (27.0-33.0); MCHC 34.4 % (32.0-36.0); MCV 84 fL (80-95); MPV 9.1 fL (8.0-11.0); Monocytes % 11.5; Neutrophils % 70.9; Platelet Count 392 10^3/uL (130-400); RBC 6.13 10^6/uL (4.36-5.78); RDW 12.7 % (11.8-14.1); RDW-SD 38.6 fL; WBC 8.75 10^3/uL (4.4-10.8)
[2023-11-21] MEDS: Pantoprazole 40 MG VIAL IVP (14:59)
[2023-11-21] MEDS: Metoclopramide 10 MG/2 ML VIAL IVP (15:00)
[2023-11-21] MEDS: Normal Saline 1,000 ML 1000 ML IV ×2 (15:01→16:54)
[2023-11-21 15:04] LABS: ALT 106 U/L (16-63); AST 43 U/L (15-37); Albumin 5.1 g/dL (3.4-5.0); Alkaline Phosphatase 81 U/L (46-116); Anion Gap 18.5 mmol/L (3-11); Bilirubin, Total 2.1 mg/dL (0.2-1.0); CO2 24.5 mmol/L (21.0-32.0); Calcium 9.7 mg/dL (8.5-10.1); Chloride 96 mmol/L (98-107); Estimated GFR 14.93 (mL/min/1.73m2); Glucose 161 mg/dL (74-106); Lipase 20 U/L (16-77); Magnesium 2.8 mg/dL (1.8-2.4); Potassium 3.6 mmol/L (3.5-5.1); Sodium 139 mmol/L (136-145); Total Protein 9.5 g/dL (6.4-8.2)
[2023-11-21 15:08] VITALS: BP 131/114; PULSE 107; RESP 22; TEMP 36.3; O2SAT 100
[2023-11-21 15:12] LABS: Diff Comment RBC Morph Reviewed; RBC Morphology Normal
[2023-11-21 15:13] LABS: BUN 90 mg/dL (7-18); CREATININE 4.4 mg/dL (0.70-1.30)
[2023-11-21] MEDS: HYDROmorphone 2 MG/ML SYR 0.5 MG IVP (15:22)
--- NOTE | 2023-11-21 15:41 | DI.CT_ITS ---
Exam(s) CT ABDOMEN PELVIS WO EXAM: CT ABDOMEN PELVIS WO CLINICAL HISTORY: Abdominal pain, nausea, vomiting. TECHNIQUE: Imaging Protocol: Axial computed tomography images with coronal and sagittal reformatted images were created and reviewed. Oral: / no COMPARISON: No exams were available for comparison FINDINGS: Lung Bases: No acute findings. Atelectasis. Liver: Normal density. No suspicious mass. Gallbladder and biliary tract: No radiodense calculus or biliary dilation. Pancreas: Normal density, no abnormal calcifications or inflammatory process. Spleen: Normal. Kidneys: Normal size, contour and axis. Tiny bilateral nonobstructing renal calculi. No suspicious m asses seen. Adrenal glands: No masses seen. Lymph nodes: Within normal limits. Vasculature: Abdominal aorta non-dilated. Soft tissues: Midline anterior abdominal wall scar. Small fatty containing bilateral inguinal hernia s. Bladder: No wall thickening. No mass or calculi. Bowel: Suture material at stomach. Surgical clips at GE junction. No obstruction or bowel wall thic kening. Appendix normal. Normal quantity of stool. Peritoneal cavity: No ascites, collection or mesenteric inflammatory response. Reproductive organs: Unremarkable. Bones: Unremarkable for age. IMPRESSION: No acute abnormality in the abdomen or pelvis. RADIATION DOSE DELIVERED: Total DLP DATA REPOSITORY: All CT scans at this facility are submitted to the National Radiology Data Registry (NRDR) Dose Index Registry (DIR) with the [employer] (ACR). RADIATION OPTIMIZATION: All CT scans at this facility use at least one of these dose optimization te chniques: automated exposure control; mA and/or kV adjustment per patient size (includes targeted exa ms where dose is matched to clinical indication); or iterative reconstruction.
[2023-11-21 15:42] VITALS: O2SAT 98
[2023-11-21 16:22] LABS: BE (Venous) 2 mmol/L (-2-3); HCO3 (Venous) 26 mmol/L (23-28); O2 Sat (Venous) 90 %; TCO2 (Venous) 23 mmol/L (24-29); pCO2 (Venous) 40 mmHg (41-51); pH (Venous) 7.43 (7.31-7.41); pO2 (Venous) 59 mmHg
[2023-11-21 16:39] LABS: Creatine Kinase 32 U/L (39-308)
[2023-11-21 16:52] LABS: Bilirubin Negative (Negative); Blood Negative (Negative); Clarity Clear (Clear); Glucose Negative (Negative); Ketones Negative (Negative); Leukocyte Esterase Negative (Negative); Nitrite Negative (Negative); Specific Gravity 1.025 (1.005-1.025); Urobilinogen 0.2 mg/dL (Up to 0.2)
[2023-11-21 16:59] LABS: Anion Gap 14.1 mmol/L (3-11); CO2 26.9 mmol/L (21.0-32.0); Calcium 8.9 mg/dL (8.5-10.1); Chloride 101 mmol/L (98-107); Glucose 140 mg/dL (74-106); Potassium 3.1 mmol/L (3.5-5.1); Sodium 142 mmol/L (136-145)
[2023-11-21 16:59] LABS: Epithelial Cells Rare HPF (Negative); RBC 0-2 HPF (0-2); WBC 0-2 HPF (0-5)
[2023-11-21 17:00] LABS: Bacteria Negative HPF (Negative); C & S Indicated? No; Casts Negative LPF (Negative); Crystals Negative HPF (Negative); Mucus Trace (Negative)
[2023-11-21 17:04] LABS: BUN 85 mg/dL (7-18); CREATININE 3.8 mg/dL (0.70-1.30)
[2023-11-21] MEDS: HYDROmorphone 2 MG/ML SYR 0.25 MG IVP (17:47)
[2023-11-21] MEDS: Famotidine 20 MG/2 ML VIAL IVP (17:47)
--- NOTE | 2023-11-21 17:57 | W.EDPROG ---
Date of service: 11/21/23 Time of Service: 17:57 Medical Decision Making Care is excepted and transition from CT abdomen and pelvis does not show acute abnormality BMP was repeated after 2 L of fluid, creatinine 3.8, BUN 85, mildly improving, potassium 3.1 QTc prolongation, will administer 20 mEq of IV potassium as patient remains nauseous Will give 2.5 of Compazine and 0.5 of Ativan Patient has thrush to his oropharynx, will initiate nystatin Patient is alert and oriented x 4 and assessment, he is intermittently tremulous but states he feels like it is secondary to pain, he has not had any alcohol consumption in the past 3 weeks per patient and He was recently discharged from [facility] after 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 Jay. I spent approximately 15 minutes reviewing patient's records from his recent admission to [facility] Patient has remained stable and his vitals have improved throughout this encounter, at time of this documentation, patient's pulse is 83, oxygen 98% on room air QTc of 544 and blood pressure of 150/90 Quality:[facility] Health Related Social Needs: No Data to Display Critical Care Time Critical Care Time Attestation: 35 min of critical care time secondary to CHARMAINE, requiring iv fluids, hypkalemia with supplementation, ct interpretation and review, and admission to hospital Sign Out Sign Out Data: Sign Out Comment: Pending CT abdomen pelvis and urinalysis. Patient received a liter of fluid, Reglan and 0.5 of Dilaudid. Patient desatted to 77% room air after Dilaudid. Placed on 2 L nasal cannula. O2 sat came back up to 97% upon wakening. Here with generalized abdominal pain, nausea vomiting unable to keep down water since last night. Has been seen here before for hyperemesis, recently admitted and seen at [facility] for an endoscopy. Does have a history of Mix's esophagus. Last updated by Jael Chauhan NP at 11/21/23 15:39 Discharge Plan Disposition Patient Disposition: Admit to [facility] Discharge Details Clinical Impression: CHARMAINE (acute kidney injury), History of Ren fundoplication, Hypokalemia Primary Care Provider: Jerardo Hicks ED Provider: Jessica Ruiz Home Meds and New Rx's Prescriptions: No Action pugbbpst-ivbu-zzeib-oreg-capry 100 mg-150 mg- 50 mg-150 mg capsule 1,500 cap PO HS Hold Instructions: Pt Stopped/Never Started esomeprazole magnesium [Nexium] 40 mg capsule,delayed release(DR/EC) 40 mg PO DAILY Qty: 90 3RF sucralfate [Carafate] 100 mg/mL suspension 10 ml PO QID 30 Days Qty: 1200 1RF Hold Instructions: Pt Stopped/Never Started Rx Instructions: swish in mouth and swallow; use after food/drink Tylenol Extra Strength 500 mg powder in packet 1,000 mg PO Q6H Qty: 32 2RF acetaminophen 500 mg Tablet 1,000 mg PO Q6H PRN multivitamin Tablet,Chewable 1 tab PO DAILY Hold Instructions: Pt Stopped/Never Started losartan 25 mg PO DAILY hydromorphone 2 mg tablet 2 mg PO Q8H PRN lorazepam 0.5 mg tablet 0.5 mg PO ONCE PRN promethazine 25 mg tablet 25 mg PO Q6H PRN (Reason: nausea and vomiting) Qty: 20 0RF ondansetron 4 mg tablet,disintegrating 4 mg PO Q8H PRN (Reason: nausea and vomiting) Qty: 30 0RF
[2023-11-21] MEDS: POTASSIUM CHLORIDE/0.9% NACL 1,000 ML 150 MEQ IV ×2 (18:02→23:20)
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
[2023-11-21] MEDS: Prochlorperazine 10 MG/2 ML VIAL 2.5 MG IVP (18:17)
[2023-11-21] MEDS: LORazepam 2 MG/ML VIAL 0.5 MG IVP (18:18)
[2023-11-21 19:13] LABS: Lactate 1.6 mmol/L (0.6-1.4)
[2023-11-21] MEDS: Nystatin 500000 UNITS/5 ML SUSP 5ML CUP PO (19:24)
[2023-11-21 19:36] LABS: ETHANOL BLOOD < 3.0 mg/dL (<10)
[2023-11-21 20:01] LABS: Procalcitonin < 0.1 ng/mL
[2023-11-21 20:26] VITALS: TEMP 36.3; O2SAT 98
[2023-11-21 20:28] VITALS: BP 156/106; PULSE 99; RESP 18; TEMP 36.3; O2SAT 98
[2023-11-21] MEDS: POTASSIUM CHLORIDE 10 MEQ/100 ML BAG 100 MEQ IVPB ×3 (20:57→23:19)
[2023-11-21] MEDS: Normal Saline Flush 10 ML SYR IVP ×2 (20:57→21:46)
[2023-11-21] MEDS: HYDROmorphone 2 MG TAB PO (21:45)
[2023-11-21] MEDS: Heparin 5,000 UNITS/ML VIAL 5000 UNITS SC (22:09)
[2023-11-22 00:24] LABS: *AMPHETAMINES SCREEN URINE Negative (Negative); *BARBITURATES SCREEN URINE Negative (Negative); *BENZODIAZEPINES SCREEN URINE Negative (Negative); Cannabinoids THC Positive (Negative); Cocaine Screen,Urine Negative (Negative); METHADONE URINE SCREEN Negative (Negative); OPIATES URINE SCREEN Positive (Negative); Tricyclic Antidepressants Negative (Negative)
[2023-11-22 01:04] LABS: Lactate 1.5 mmol/L (0.6-1.4)
[2023-11-22 01:13] LABS: Potassium 4.2 mmol/L (3.5-5.1)
[2023-11-22 03:36] VITALS: BP 130/93; PULSE 80; RESP 18; TEMP 36.8; O2SAT 97
[2023-11-22] MEDS: Heparin 5,000 UNITS/ML VIAL 5000 UNITS SC ×3 (05:31→23:29)
[2023-11-22] MEDS: POTASSIUM CHLORIDE/0.9% NACL 1,000 ML 150 MEQ IV (05:31)
[2023-11-22] MEDS: Nystatin 500000 UNITS/5 ML SUSP 5ML CUP PO ×5 (05:31→23:10)
[2023-11-22] MEDS: HYDROmorphone 2 MG TAB PO ×3 (05:31→23:21)
[2023-11-22 07:17] VITALS: BP 131/91; PULSE 76; RESP 22; TEMP 36.3; O2SAT 98
[2023-11-22 07:17] LABS: Abs Immature Grans 0.03 10^3/uL (0.0-0.06); Absolute Basophil Count 0.02 10^3/uL (0.0-0.2); Absolute Eosinophil Count 0.12 10^3/uL (0.0-0.7); Absolute Lymphocyte Count 1.54 10^3/uL (1.2-3.4); Absolute Monocyte Count 1.05 10^3/uL (0.1-0.8); Absolute Neutrophil Count 4.59 10^3/uL (1.2-6.7); Basophils % 0.3; Eosinophils % 1.6; HCT 48.1 % (40.0-50.0); HGB 15.5 g/dL (13.5-17.5); Immature Grans % 0.4; MCH 28.9 pg (27.0-33.0); MCHC 32.2 % (32.0-36.0); MCV 90 fL (80-95); MPV 9.4 fL (8.0-11.0); Monocytes % 14.3; Neutrophils % 62.4; Platelet Count 303 10^3/uL (130-400); RBC 5.36 10^6/uL (4.36-5.78); RDW 12.8 % (11.8-14.1); RDW-SD 42.2 fL; WBC 7.35 10^3/uL (4.4-10.8)
[2023-11-22 07:36] LABS: ALT 90 U/L (16-63); AST 33 U/L (15-37); Alkaline Phosphatase 63 U/L (46-116); Anion Gap 12.2 mmol/L (3-11); BUN 56 mg/dL (7-18); Bilirubin, Total 1.6 mg/dL (0.2-1.0); CO2 25.8 mmol/L (21.0-32.0); CREATININE 2.1 mg/dL (0.70-1.30); Calcium 8.8 mg/dL (8.5-10.1); Chloride 106 mmol/L (98-107); Estimated GFR 36.26 (mL/min/1.73m2); Glucose 98 mg/dL (74-106); Magnesium 2.5 mg/dL (1.8-2.4); Sodium 144 mmol/L (136-145); Total Protein 7.9 g/dL (6.4-8.2)
[2023-11-22] MEDS: Normal Saline 10 ML VIAL IJ (07:49)
[2023-11-22] MEDS: Normal Saline Flush 10 ML SYR IVP ×5 (07:49→23:10)
[2023-11-22] MEDS: Pantoprazole 40 MG VIAL IVP (07:49)
[2023-11-22] MEDS: Sucralfate 1 GM TAB PO ×4 (07:49→23:10)
[2023-11-22] MEDS: Lactated Ringers 1,000 ML 150 ML IV ×2 (09:05→17:07)
[2023-11-22] MEDS: Prochlorperazine 10 MG/2 ML VIAL 5 MG IVP ×2 (09:10→16:28)
[2023-11-22] MEDS: FLUCONAZOLE 200 MG/100 ML BAG 100 MG IVPB (10:41)
--- NOTE | 2023-11-22 14:46 | CHAPLAIN ---
José was resting in bed, with the shades down and the light off. He was trying some liquids for lunch. He said he's in touch with family and friends. I explained my role and offered support.
--- NOTE | 2023-11-22 14:50 | W.PM.PROGNOT ---
Date of Service Date of service: 11/22/23 Time of Service: 14:50 Assessment and Plan Assessment and plan (1) CHARMAINE (acute kidney injury): Status: Acute Assessment and plan: Patient CT of his abdomen pelvis showed no evidence of acute obstructive findings no acute intra-abdominal findings such as abscess or abnormal fluid collection or masses. CK was normal. His BUN/creatinine are responding to IV fluid hydration. BUN is down to 56 creatinine 2.1. Potassium is normal 4.0 his magnesium level is elevated 2.5. Transaminases are also improving. Continue IV fluid hydration. Recording of intake and output has been inaccurate. We reinforced with the patient the need to keep accurate output so that we can avoid placing a Saldivar catheter. I will work on treating his hyperemesis. I have ordered a one-time dose of droperidol to see if this improves his nausea. (2) Dehydration: Status: Acute Assessment and plan: As above (3) Thrush of mouth and esophagus: Status: Acute Assessment and plan: Patient reported as having thrush per ED. Unfortunately I did not look in his oropharynx on admission. For now we will continue nystatin and Diflucan as it does seem to be improving his symptoms of odynophagia. (4) Hypokalemia: Status: Acute Assessment and plan: Repleted continue to monitor (5) History of Ren fundoplication: Start date: 06/26/23 Status: Chronic Assessment and plan: complicated by esophageal/gastric perforation and subsequent septic shock (07/03/24) requiring prolonged hospitalization at [facility] from 07/03/23-08/20/23 requiring multiple surgeries and gastrostomy tube (now since removed). (6) Cannabinoid hyperemesis syndrome: Status: Suspected Assessment and plan: Patient does not feel that his hyperemesis is secondary to cannabis however he admits to being a heavy user of cannabis but has not smoked in 2 weeks. I think given that there seems to be no structural abnormality on the CT scan that this remains high on the list of probabilities. Will give him a trial droperidol. Patient is asking to take a hot shower (7) GERD (gastroesophageal reflux disease): Status: Chronic Assessment and plan: will put him on iv protonix until taking adequate PO then will switch to oral PPI; continue carafate as tolerated. 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 Was unable to keep down his breakfast but so far he is keeping down his lunch. He has some mild abdominal discomfort but no exquisist pains. He is afebrile. Exam Narrative Exam Narrative: Middle-age white male alert and orient x 3 does not appear to be in any acute distress. Looked in his oral mucosa. There is little weight discoloration of his tongue but no white plaques on his palate. Mucous membranes are now moist. Lungs are congested with some expiratory wheezes Heart is regular no murmur rub or gallop Abdomen nondistended normal bowel sounds soft some minimal tenderness on the left side with palpation but there is no guarding and no rebound tenderness. Extremities without peripheral edema Objective Last Vital Signs Temp 36.3 C L 11/22/23 07:17 Pulse 76 11/22/23 07:17 Resp 22 11/22/23 07:17 BP 131/91 H 11/22/23 07:17 Pulse Ox 98 11/22/23 07:17 Laboratory Results - last 24 hr 11/21/23 11/21/23 11/21/23 14:40 16:15 16:31 WBC 8.75 RBC 6.13 H Hgb 17.7 H Hct 51.5 H MCV 84 MCH 28.9 MCHC 34.4 RDW 12.7 Plt Count 392 MPV 9.1 Immature Gran % 0.5 Neutrophils % 70.9 Lymphocytes % 16.7 Monocytes % 11.5 Eosinophils % 0.2 Basophils % 0.2 Nucleated RBC % 0.0 Absolute Neutrophils 6.20 Absolute Lymphocytes 1.46 Absolute Monocytes 1.01 H Absolute Eosinophils 0.02 Absolute Basophils 0.02 RBC Morphology Normal VBG pH 7.43 H VBG pCO2 40 L VBG pO2 59 VBG HCO3 26 VBG Total CO2 23 L VBG O2 Saturation 90 VBG Base Excess 2 VBG Lactate Sodium 139 142 Potassium 3.6 3.1 L Chloride 96 L 101 Carbon Dioxide 24.5 26.9 Anion Gap 18.5 H 14.1 H BUN 90 H* 85 H* Creatinine 4.4 H* 3.8 H* Est GFR (CKD-EPI 2020) 14.93 17.80 Glucose 161 H 140 H Calcium 9.7 8.9 Magnesium 2.8 H Total Bilirubin 2.1 H AST 43 H ALT 106 H Alkaline Phosphatase 81 Creatine Kinase 32 L Total Protein 9.5 H Albumin 5.1 H Lipase 20 Procalcitonin Urine Color Urine Clarity Urine pH Ur Specific [place] Urine Protein Urine Ketones Urine Blood Urine Nitrite Urine Bilirubin Urine Urobilinogen Ur Leukocyte Esterase Urine RBC Urine WBC Ur Epithelial Cells Urine Crystals Urine Bacteria Urine Casts Urine Mucus Ur Culture Indicated? Urine Glucose Urine Opiates Screen Urine Methadone Screen Ur Barbiturates Screen Ur Tricyclics Screen Ur Amphetamines Screen U Benzodiazepines Scrn Urine Cocaine Screen Ur THC Screen Ethyl Alcohol 11/21/23 11/21/23 11/22/23 16:40 19:05 00:56 WBC RBC Hgb Hct MCV MCH MCHC RDW Plt Count MPV Immature Gran % Neutrophils % Lymphocytes % Monocytes % Eosinophils % Basophils % Nucleated RBC % Absolute Neutrophils Absolute Lymphocytes Absolute Monocytes Absolute Eosinophils Absolute Basophils RBC Morphology VBG pH VBG pCO2 VBG pO2 VBG HCO3 VBG Total CO2 VBG O2 Saturation VBG Base Excess VBG Lactate 1.6 H 1.5 H Sodium Potassium 4.2 D Chloride Carbon Dioxide Anion Gap BUN Creatinine Est GFR (CKD-EPI 2020) Glucose Calcium Magnesium Total Bilirubin AST ALT Alkaline Phosphatase Creatine Kinase Total Protein Albumin Lipase Procalcitonin < 0.1 Urine Color Yellow Urine Clarity Clear Urine pH 5.0 Ur Specific [place] 1.025 Urine Protein 100 H Urine Ketones Negative Urine Blood Negative Urine Nitrite Negative Urine Bilirubin Negative Urine Urobilinogen 0.2 Ur Leukocyte Esterase Negative Urine RBC 0-2 Urine WBC 0-2 Ur Epithelial Cells Rare Urine Crystals Negative Urine Bacteria Negative Urine Casts Negative Urine Mucus Trace Ur Culture Indicated? No Urine Glucose Negative Urine Opiates Screen Positive A Urine Methadone Screen Negative Ur Barbiturates Screen Negative Ur Tricyclics Screen Negative Ur Amphetamines Screen Negative U Benzodiazepines Scrn Negative Urine Cocaine Screen Negative Ur THC Screen Positive A Ethyl Alcohol < 3.0 11/22/23 05:43 WBC 7.35 RBC 5.36 Hgb 15.5 D Hct 48.1 MCV 90 D MCH 28.9 MCHC 32.2 D RDW 12.8 Plt Count 303 MPV 9.4 Immature Gran % 0.4 Neutrophils % 62.4 Lymphocytes % 21.0 Monocytes % 14.3 Eosinophils % 1.6 Basophils % 0.3 Nucleated RBC % 0.0 Absolute Neutrophils 4.59 Absolute Lymphocytes 1.54 Absolute Monocytes 1.05 H Absolute Eosinophils 0.12 Absolute Basophils 0.02 RBC Morphology VBG pH VBG pCO2 VBG pO2 VBG HCO3 VBG Total CO2 VBG O2 Saturation VBG Base Excess VBG Lactate Sodium 144 Potassium 4.0 Chloride 106 Carbon Dioxide 25.8 Anion Gap 12.2 H BUN 56 H Creatinine 2.1 H D Est GFR (CKD-EPI 2020) 36.26 Glucose 98 Calcium 8.8 Magnesium 2.5 H Total Bilirubin 1.6 H AST 33 ALT 90 H Alkaline Phosphatase 63 Creatine Kinase Total Protein 7.9 Albumin 4.0 Lipase Procalcitonin Urine Color Urine Clarity Urine pH Ur Specific [place] Urine Protein Urine Ketones Urine Blood Urine Nitrite Urine Bilirubin Urine Urobilinogen Ur Leukocyte Esterase Urine RBC Urine WBC Ur Epithelial Cells Urine Crystals Urine Bacteria Urine Casts Urine Mucus Ur Culture Indicated? Urine Glucose Urine Opiates Screen Urine Methadone Screen Ur Barbiturates Screen Ur Tricyclics Screen Ur Amphetamines Screen U Benzodiazepines Scrn Urine Cocaine Screen Ur THC Screen Ethyl Alcohol Time Spent with Patient Time Spent with Patient: 25-34 minutes Time was spent: preparing to see the patient(eg.review tests), ordering medications,tests, procedures, referring, communicating with other health health care / medical job titles, indepentently interpreting results, counseling the patient and care coordination
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
[2023-11-22 15:27] VITALS: BP 120/99; PULSE 83; RESP 24; TEMP 35.9; O2SAT 98
[2023-11-22] MEDS: Droperidol 5 MG/2 ML VIAL 1.25 MG IVP (15:35)
[2023-11-22 21:09] VITALS: BP 133/93; PULSE 72; RESP 18; O2SAT 97
[2023-11-23] MEDS: Heparin 5,000 UNITS/ML VIAL 5000 UNITS SC ×2 (06:34→14:08)
[2023-11-23] MEDS: Nystatin 500000 UNITS/5 ML SUSP 5ML CUP PO ×3 (06:40→14:09)
[2023-11-23 07:20] LABS: ALT 76 U/L (16-63); AST 28 U/L (15-37); Albumin 3.2 g/dL (3.4-5.0); Alkaline Phosphatase 48 U/L (46-116); Anion Gap 5.7 mmol/L (3-11); BUN 21 mg/dL (7-18); Bilirubin, Direct 0.3 mg/dL (0.0-0.2); Bilirubin, Total 1.5 mg/dL (0.2-1.0); CO2 28.3 mmol/L (21.0-32.0); Calcium 8.5 mg/dL (8.5-10.1); Chloride 105 mmol/L (98-107); Estimated GFR 88.33 (mL/min/1.73m2); Glucose 94 mg/dL (74-106); Potassium 3.6 mmol/L (3.5-5.1); Sodium 139 mmol/L (136-145); Total Protein 6.3 g/dL (6.4-8.2)
[2023-11-23 08:04] VITALS: BP 135/102; PULSE 75; RESP 16; TEMP 36.2; O2SAT 99
[2023-11-23] MEDS: Pantoprazole 40 MG VIAL IVP (08:47)
[2023-11-23] MEDS: Sucralfate 1 GM TAB PO ×3 (08:48→16:56)
[2023-11-23] MEDS: Normal Saline Flush 10 ML SYR IVP ×2 (08:49)
[2023-11-23 09:49] LABS: Lyme Ab w Rflx to Lyme Confirm Negative (Negative)
[2023-11-23] MEDS: FLUCONAZOLE 200 MG/100 ML BAG 100 MG IVPB (10:18)
[2023-11-23 15:00] VITALS: BP 119/83; PULSE 58; RESP 16; TEMP 36.9; O2SAT 100
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
--- NOTE | 2023-11-23 16:55 | PDOC.CMDIS ---
Date of service: 11/23/23 Time of Service: 16:55 LACE Index Scoring Tool Questions: Length of Stay (in days): 2 Was the patient admitted via the E.D.?: Yes Comorbidities: Liver or Renal Disease E.D. Visits: 3 Answers: Total Score: 13 Risk of Readmission: High Risk Care Management Discharge Plan Reason for Hospitalization: CHARMAINE, dehydration, hyperemesis Discharge Plan: José will return home when ready per MD. He will follow up with surgical services, his PCP and plan of care as prescribed. CM will continue to follow. Patient/Family Education Needs: Review discharge instructions, discuss Ask Me Three [facility] Health Related Social Needs: No Data to Display
[2023-11-25 14:27] LABS: Anaplasma phagocytophilum Negative (Negative); B. miyamotoi PCR Negative (Negative); Babesia divergens/MO-1 Negative (Negative); Babesia duncani Negative (Negative); Babesia microti Negative (Negative); Ehrlichia chaffeensis Negative (Negative); Ehrlichia ewingii/canis Negative (Negative); Ehrlichia muris eauclairensis Negative (Negative)
== END 2023-11-23 17:03 | disposition home or self-care (01) | DRG 683 ==
LOC: ER 19:25 → MS 20:07
PROVIDERS: Registered Nurse Emergency; Admitting Provider Internal Medicine; Emergency Provider Physician Assistant; PCP Neuromusculoskeletal Medicine & OMM; Visit Provider Internal Medicine
DX: N17.9 Acute kidney failure, unspecified (principal); B37.0 Candidal stomatitis; B37.81 Candidal esophagitis; E86.0 Dehydration; E87.6 Hypokalemia; R11.2 Nausea with vomiting, unspecified; F12.90 Cannabis use, unspecified, uncomplicated; F17.220 Nicotine dependence, chewing tobacco, uncomplicated; K22.70 Barrett's esophagus without dysplasia; K21.00 Gastro-esophageal reflux disease with esophagitis, without bleeding; Z98.890 Other specified postprocedural states
CPT/HCPCS: 00123; 36415; 80048; 80053; 80076; 80307; 82550; 82805; 83690; 84145; 87798; 96365; 96366; 96375; 96376; 99291; 74176; 80320; 81003; 81015; 83605; 83735; 84132; 85025; 86618; 99222; 99232; 99238; J0780; J1170; J1450; J1644; J1790; J2060; J2470; J2765; J3480

== ENCOUNTER 2024-01-24 11:43 | Emergency (ER) | payer OTHER, SELFPAY ==
[2024-01-24] VITALS (17 sets, daily range): BP systolic 124–174; BP diastolic 78–99; PULSE 91–107; RESP 18–25; TEMP 37.2; O2SAT 85–100
--- NOTE | 2024-01-24 13:15 | DI.CT_ITS ---
Exam(s) CT ABDOMEN PELVIS W EXAM: CT ABDOMEN PELVIS W CLINICAL HISTORY: vomting, r/o obstruction. TECHNIQUE: Imaging Protocol: Axial computed tomography images with coronal and sagittal reformatted images were created and reviewed CONTRAST MATERIAL: Intravenous: Omnipaque 350 Contrast volume:100 ml Oral: no COMPARISON: CT CT ABDOMEN PELVIS WO from 11/21/2023 FINDINGS: ABDOMEN and PELVIS: Lung Bases: No acute findings. Liver: Normal density. No suspicious mass. Gallbladder and biliary tract: No radiodense calculus. No biliary dilation. Pancreas: Normal density. No abnormal calcifications or inflammatory process. No evidence of mass. Spleen: Normal. Kidneys: Normal size, contour and axis. Tiny bilateral nonobstructing renal calculi. No obstructive uropathy. No suspicious masses seen. Adrenal glands: No masses seen. Vasculature: Abdominal aorta non-dilated. Soft tissues: Midline surgical scar. Bladder: No gross wall thickening. No calculi.No focal mass. Bowel: Suture material at stomach. This surgical clips at GE junction. Some fluid within stomach. No abnormal gastric distension. Small bowel is nondilated. No obstruction. No bowel wall thickening. The colon is nearly empty. Appendix normal. Peritoneal cavity: No ascites. No focal collection. No mesenteric inflammatory response. Bones: Unremarkable for age. Reproductive organs: Prostate mildly enlarged. Lymph nodes: No pathologically enlarged lymph nodes. IMPRESSION:: No acute abnormality in the abdomen or pelvis. No evidence of bowel obstruction or ot her acute abnormality. RADIATION DOSE DELIVERED: 845.66mGy.cm Total DLP DATA REPOSITORY: All CT scans at this facility are submitted to the National Radiology Data Registry (NRDR) Dose Index Registry (DIR) with the [employer] (ACR). RADIATION OPTIMIZATION: All CT scans at this facility use at least one of these dose optimization te chniques: automated exposure control; mA and/or kV adjustment per patient size (includes targeted exa ms where dose is matched to clinical indication); or iterative reconstruction.
[2024-01-24] MEDS: Normal Saline 1,000 ML 1000 ML IV (13:17)
[2024-01-24] MEDS: Ondansetron 4 MG/2 ML VIAL IVP (13:18)
[2024-01-24] MEDS: Ketorolac 15 MG/ML VIAL IVP (13:18)
[2024-01-24 13:27] LABS: Abs Immature Grans 0.36 10^3/uL (0.0-0.06); HCT 44.9 % (40.0-50.0); HGB 16.1 g/dL (13.5-17.5); MCH 29.7 pg (27.0-33.0); MCHC 35.9 % (32.0-36.0); MCV 83 fL (80-95); MPV 8.9 fL (8.0-11.0); Platelet Count 468 10^3/uL (130-400); RBC 5.43 10^6/uL (4.36-5.78); RDW 13.5 % (11.8-14.1); RDW-SD 39.8 fL; WBC 13.13 10^3/uL (4.4-10.8)
[2024-01-24] MEDS: Droperidol 5 MG/2 ML VIAL IVP (13:29)
[2024-01-24 13:33] LABS: Lactate 4.8 mmol/L (0.6-1.4)
--- NOTE | 2024-01-24 13:41 | NUR.NOTE ---
PT SATS DROP WHILE SLEEPING TO LOW 80'S, PUT ON 3 LPM, SAT IMPROVED TO 98%.
[2024-01-24 13:49] LABS: ALT 69 U/L (16-63); AST 20 U/L (15-37); Albumin 5.5 g/dL (3.4-5.0); Alkaline Phosphatase 102 U/L (46-116); BUN 22 mg/dL (7-18); Bilirubin, Total 0.7 mg/dL (0.2-1.0); Calcium 11.2 mg/dL (8.5-10.1); Chloride 104 mmol/L (98-107); Estimated GFR 38.45 (mL/min/1.73m2); Glucose 215 mg/dL (74-106); Potassium 3.7 mmol/L (3.5-5.1); Sodium 146 mmol/L (136-145)
[2024-01-24] MEDS: Normal Saline - Diluent 50 ML VIAL IJ (13:54)
[2024-01-24] MEDS: Omnipaque 350 MG/ML 100 ML BTL IJ (13:55)
[2024-01-24 14:00] LABS: Absolute Lymphocyte Count 1.05 10^3/uL (1.2-3.4); Absolute Neutrophil Count 11.03 10^3/uL (1.2-6.7); Atypical Lymphocytes % 0 %; Bands % 0 %
[2024-01-24 14:01] LABS: Absolute Monocyte Count 1.05 10^3/uL (0.1-0.8); Diff Comment Manual Differential; RBC Morphology Normal
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
[2024-01-24 14:58] LABS: Lactate 1.5 mmol/L (0.6-1.4)
[2024-01-24] MEDS: Lactated Ringers 1,000 ML 1000 ML IV (15:02)
[2024-01-24] MEDS: Dicyclomine 20 MG TAB PO (15:15)
[2024-01-24 15:35] LABS: Anion Gap 14.5 mmol/L (3-11); BUN 22 mg/dL (7-18); CO2 24.5 mmol/L (21.0-32.0); CREATININE 1.6 mg/dL (0.70-1.30); Calcium 9.4 mg/dL (8.5-10.1); Chloride 108 mmol/L (98-107); Estimated GFR 50.26 (mL/min/1.73m2); Glucose 131 mg/dL (74-106); Potassium 3.5 mmol/L (3.5-5.1); Sodium 147 mmol/L (136-145)
[2024-01-24 16:02] LABS: Bilirubin Small (Negative); Blood Trace-intact (Negative); Clarity Clear (Clear); Glucose Negative (Negative); Ketones Negative (Negative); Leukocyte Esterase Negative (Negative); Nitrite Negative (Negative); Urobilinogen 0.2 mg/dL (Up to 0.2); pH 5.5 (5-8)
[2024-01-24] MEDS: Ondansetron O.D.T. 4 MG TABEF, 3 TABS/BTL PO (16:07)
[2024-01-24 16:16] LABS: Bacteria Rare HPF (Negative); C & S Indicated? No; Casts 5-10 Hyaline LPF (Negative); Crystals Few Calcium Oxalate HPF (Negative); Epithelial Cells Rare HPF (Negative); Mucus Moderate (Negative); RBC 0-2 HPF (0-2); WBC 0-2 HPF (0-5)
== END 2024-01-24 16:08 | disposition home or self-care (01) ==
PROVIDERS: Emergency Provider Student in an Organized Health Care Education/Training Program; PCP Neuromusculoskeletal Medicine & OMM
DX: R11.15 Cyclical vomiting syndrome unrelated to migraine (principal); F17.220 Nicotine dependence, chewing tobacco, uncomplicated
CPT/HCPCS: 36415; 80048; 80053; 96361; 96365; 96375; 99285; 74177; 81003; 81015; 83605; 85025; 99284; J1790; J1885; J2405; J3490

== ENCOUNTER 2024-01-26 08:49 | Emergency (ER) | payer OTHER, SELFPAY ==
[2024-01-26] VITALS (90 sets, daily range): BP systolic 125–224; BP diastolic 76–146; PULSE 47–123; RESP 12–27; TEMP 37.7; O2SAT 98–99
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
[2024-01-26] MEDS: Ondansetron 4 MG/2 ML VIAL IVP (10:10)
[2024-01-26] MEDS: HYDROmorphone 2 MG/ML SYR 0.5 MG IVP ×2 (10:11→14:20)
[2024-01-26] MEDS: ACETAMINOPHEN 1,000 MG/100 ML BTL 400 MG IVPB (10:14)
[2024-01-26] MEDS: Lactated Ringers 1,000 ML 1000 ML IV (10:19)
[2024-01-26 10:27] LABS: Lactate 2.2 mmol/L (0.6-1.4)
[2024-01-26 10:28] LABS: Absolute Basophil Count 0.05 10^3/uL (0.0-0.2); Absolute Eosinophil Count 0.26 10^3/uL (0.0-0.7); Absolute Lymphocyte Count 0.88 10^3/uL (1.2-3.4); Absolute Monocyte Count 0.98 10^3/uL (0.1-0.8); Basophils % 0.6 %; HCT 41.2 % (40.0-50.0); HGB 14.7 g/dL (13.5-17.5); Immature Grans % 1.2 %; Lymphocytes % 10.3 %; MCH 30.1 pg (27.0-33.0); MCHC 35.7 % (32.0-36.0); MCV 84 fL (80-95); MPV 8.8 fL (8.0-11.0); Monocytes % 11.4 %; Neutrophils % 73.5 %; Platelet Count 354 10^3/uL (130-400); RBC 4.88 10^6/uL (4.36-5.78); RDW 13.7 % (11.8-14.1); RDW-SD 41.8 fL; WBC 8.57 10^3/uL (4.4-10.8)
[2024-01-26 10:45] LABS: ALT 54 U/L (16-63); AST 19 U/L (15-37); Albumin 4.8 g/dL (3.4-5.0); Alkaline Phosphatase 76 U/L (46-116); Anion Gap 12.4 mmol/L (3-11); BUN 12 mg/dL (7-18); Bilirubin, Direct 0.2 mg/dL (0.0-0.2); Bilirubin, Total 0.9 mg/dL (0.2-1.0); CO2 28.6 mmol/L (21.0-32.0); Calcium 9.5 mg/dL (8.5-10.1); Chloride 101 mmol/L (98-107); Estimated GFR 88.33 (mL/min/1.73m2); Glucose 134 mg/dL (74-106); Lipase 15 U/L (16-77); Magnesium 1.9 mg/dL (1.8-2.4); Potassium 3.2 mmol/L (3.5-5.1); Sodium 142 mmol/L (136-145); Total Protein 8.6 g/dL (6.4-8.2)
[2024-01-26] MEDS: DEXTROSE 5%-LACTATED RINGERS 1,000 ML 150 ML IV (10:59)
[2024-01-26 11:00] LABS: Procalcitonin < 0.1 ng/mL
[2024-01-26] MEDS: Prochlorperazine 10 MG/2 ML VIAL 5 MG IVP (11:47)
[2024-01-26] MEDS: POTASSIUM CHLORIDE 10 MEQ/100 ML BAG 100 MEQ IVINF (11:50)
[2024-01-26 12:17] LABS: Bilirubin Negative (Negative); Blood Negative (Negative); Clarity Sl Cloudy (Clear); Glucose Negative (Negative); Ketones Trace mg/dL (Negative); Leukocyte Esterase Negative (Negative); Nitrite Negative (Negative); Specific Gravity 1.025 (1.005-1.025); Urobilinogen 0.2 mg/dL (Up to 0.2)
[2024-01-26 12:31] LABS: Bacteria Negative HPF (Negative); Epithelial Cells Negative HPF (Negative); WBC Negative HPF (0-5)
[2024-01-26 12:32] LABS: C & S Indicated? No; Casts 3-5 Fine Granular LPF (Negative); Crystals Negative HPF (Negative); Mucus Negative (Negative)
--- NOTE | 2024-01-26 14:00 | RT.EKG_ITS ---
APPROVED REPORT Exam: Resting ECG Reason for Exam: QTc check Patient Location: E HR:74 bpm ECG Measurements Heart Rate 74 AXIS UT 152 P 35 QRSd 128 QRS 27 QT 456 T 0 QTc 505 Conclusion Sinus rhythm 74 normal axis no stemi
[2024-01-26] MEDS: diphenhydrAMINE 50 MG/ML VIAL IVP (14:14)
[2024-01-26] MEDS: Omnipaque 350 MG/ML 100 ML BTL IJ (15:47)
[2024-01-26] MEDS: Normal Saline - Diluent 50 ML VIAL IJ (15:49)
--- NOTE | 2024-01-26 15:51 | DI.CT_ITS ---
Exam(s) CT ABDOMEN PELVIS W EXAM: CT ABDOMEN PELVIS W CLINICAL HISTORY: intractable nausea vomiting, surgical history TECHNIQUE: Imaging Protocol: Axial computed tomography images with coronal and sagittal reformatted images were created and reviewed. CONTRAST MATERIAL: Intravenous: Omnipaque 350 Contrast volume:100 mL Oral: No COMPARISON: CT ABD PELVIS WITH CONTRAST from 05/27/[address] CHEST/ABD/PEL W from 09/13/[address] ABDOMEN PELVIS W from 10/16/[address] ABDOMEN PELVIS WO from 11/21/[address] ABDOMEN PELVIS W from 01/24/2024 FINDINGS: ABDOMEN: Lung Bases: There is calcified granuloma in the left lingula. There is atelectasis in the lung bases . Liver: Normal density. No measurable mass. Portal, Superior Mesenteric, and Splenic Veins: Unremarkable. Gallbladder and Biliary Tract: No radiodense calculus or dilation. Pancreas: Normal density, no abnormal calcifications or inflammatory process. Spleen: Calcified granuloma in the spleen. Adrenals: Stable right adrenal nodularity. Likely reflect adenomas. The left adrenal gland is unrem arkable. Kidneys: Normal size, contour and axis. Bilateral nephrolithiasis. No hydronephrosis. No masses see n. Abdominal Aorta: Abdominal portion non-dilated. Bowel: No obstruction or bowel wall thickening. No evidence of appendicitis. There are diverticula s een in the sigmoid colon but no evidence of acute diverticulitis. Postsurgical changes are seen in t he stomach in the gastroesophageal junction again. Peritoneal Cavity: No ascites, collection or mesenteric inflammatory response. No free air. Lymph Nodes: Within normal limits. Bones: Within normal limits for the patient's age. Soft Tissues: Small fat containing umbilical hernia are seen. PELVIS: Bladder: Symmetric distention, no gross wall thickening. Reproductive Organs: Unremarkable as visualized. Lymph Nodes: Within normal limits. Bones: Within normal limits for the patient's age. IMPRESSION: 1. No acute abdominal or pelvic process. 2. Bilateral nephrolithiasis. No hydronephrosis. 3. Colonic diverticulosis without evidence of acute diverticulitis. RADIATION DOSE DELIVERED: 875.09mGy.cm Total DLP DATA REPOSITORY: All CT scans at this facility are submitted to the National Radiology Data Registry (NRDR) Dose Index Registry (DIR) with the [employer] ([employer]). RADIATION OPTIMIZATION: All CT scans at this facility use at least one of these dose optimization te chniques: automated exposure control; mA and/or kV adjustment per patient size (includes targeted exa ms where dose is matched to clinical indication); or iterative reconstruction.
--- NOTE | 2024-01-26 17:00 | RT.EKG_ITS ---
APPROVED REPORT Exam: Resting ECG Reason for Exam: [id number] Patient Location: E HR:65 bpm ECG Measurements Heart Rate 65 AXIS TX 141 P 30 QRSd 131 QRS 29 QT 441 T 1 QTc 458 Conclusion Sinus rhythm...normal P axis, V-rate 60- 99 Probable left atrial enlargement...P >50mS, <-0.10mV V1 IVCD, consider RBBB...QRSd>120mS, terminal axis(90,270) Borderline ST elevation, anterior leads...ST >0.15mV in V1-V4 Normal sinus rhythm at a rate of 55. Normal axis. Interventricular conduction delay. QTc and TX wi thin normal limits. Mild upsloping ST segment elevation V2. No ST segment depressions. Inferior T wave flattening. Appears similar to prior. Prior dated earlier today.
[2024-01-26 17:15] LABS: Lactate 2.1 mmol/L (0.6-1.4)
[2024-01-26] MEDS: Droperidol 5 MG/2 ML VIAL 1.25 MG IVP ×2 (17:25→18:25)
[2024-01-26] MEDS: Pantoprazole 40 MG VIAL IVP (17:28)
[2024-01-26] MEDS: FAMOTIDINE 20 MG/50 ML BAG 200 MG IVPB (17:33)
[2024-01-26 18:32] LABS: Creatine Kinase 117 U/L (39-308)
== END 2024-01-26 20:27 | disposition home or self-care (01) ==
PROVIDERS: Physician Assistant; Emergency Provider Physician Assistant; PCP Neuromusculoskeletal Medicine & OMM
DX: R11.2 Nausea with vomiting, unspecified (principal); R19.7 Diarrhea, unspecified; E87.6 Hypokalemia; I10 Essential (primary) hypertension; N20.0 Calculus of kidney
CPT/HCPCS: 80048; 80076; 82550; 83690; 84145; 93005; 96361; 96365; 96367; 96375; 96376; 99285; 74177; 81003; 81015; 83605; 83735; 85025; 93010; 99284; J0131; J0780; J1170; J1200; J1790; J2405; J2470; J3480; J3490